=== PATIENT | female | born 1955 | race Caucasian/White ===

== ENCOUNTER 2019-03-13 13:58 | Outpatient (REF) | payer OTHER, SELFPAY ==
[2019-03-13 14:42] LABS: Abs Immature Grans 0.01 k/cumm (0.0-0.09); Absolute Basophil Count 0.03 k/cumm (0.0-0.2); Absolute Eosinophil Count 0.14 k/cumm (0.0-0.7); Absolute Neutrophil Count 3.64 k/cumm (1.2-6.7); Basophils % 0.4; Eosinophils % 2.1; HCT 39.2 % (36.0-46.0); HGB 12.8 g/dL (12.0-15.5); Immature Grans % 0.1 %; Lymphocytes % 35.2; Mean Corp. HGB Concentration 32.7 g/dL (32.0-36.0); Mean Corpuscular Hemoglobin 30.9 pg (27.0-33.0); Mean Corpuscular Volume 94.7 fL (80-95); Mean Platelet Volume 10.4 fL (8.0-11.0); Monocytes % 8.8; Neutrophils % 53.4; Platelet Count 301 x1000/uL (130-400); RBC 4.14 m/cumm (4.00-5.20); RBC Distribution Width 13.8 % (11.7-14.6); White Blood Cell Count 6.82 k/cumm (4.4-10.8)
[2019-03-13 14:50] LABS: ALT 29 U/L (14-59); AST 15 U/L (15-37); Albumin 3.7 g/dL (3.4-5.0); Alkaline Phosphatase 106 U/L (46-116); Anion Gap 12.2 mmol/L (3-11); BUN 19 mg/dL (7-18); Bilirubin, Total 0.2 mg/dL (0.2-1.0); CO2 23.8 mmol/L (21.0-32.0); CREATININE 0.71 mg/dL (0.55-1.02); Calcium 8.4 mg/dL (8.5-10.1); Calculated LDL 131 mg/dL (<100); Chloride 107 mmol/L (98-107); Cholesterol 199 mg/dL (<200); Glucose 95 mg/dL (74-106); HDL Cholesterol 52 mg/dL (40-60); Potassium 4.1 mmol/L (3.5-5.1); Sodium 143 mmol/L (136-145); TSH (W/Ref FT4) 1.93 uIU/mL (0.36-3.74); Total Protein 6.9 g/dL (6.4-8.2); Triglyceride 80 mg/dL (<150)
== END 2019-03-13 14:18 ==
LOC: NCHCN 13:58
PROVIDERS: PCP Nurse Practitioner Family; Visit Provider Nurse Practitioner Family
DX: E05.00 Thyrotoxicosis with diffuse goiter without thyrotoxic crisis or storm (principal); Z00.00 Encounter for general adult medical examination without abnormal findings
CPT/HCPCS: 80053; 80061; 84443; 85025

== ENCOUNTER 2019-03-30 09:46 | Inpatient (IN) | payer OTHER, SELFPAY ==
[2019-03-30] VITALS (64 sets, daily range): BP systolic 57–128; BP diastolic 37–83; PULSE 54–100; RESP 5–26; TEMP 36.6–38.4; O2SAT 87–99
--- NOTE | 2019-03-30 10:30 | DI.CT_ITS ---
EXAM: CT ABDOMEN PELVIS WO CLINICAL HISTORY: right abdominal pain, r/o appey TECHNIQUE: COMPARISON: No exams were available for comparison FINDINGS: CT examination of the abdomen and pelvis was performed without contrast administration. Images obtai ariana through the lung bases are unremarkable. There is a fat containing umbilical hernia. No other s ignificant abdominal wall hernia seen. No abdominal or pelvic adenopathy seen. Liver, spleen, and pancreas are grossly unremarkable by noncontrast criteria. No biliary dilatation seen. Abdominal aorta is of normal diameter. Adrenals and kidneys are unremarkable, no evidence of urinary tract obstruction or calcification. Landscaping Supervisor structures unremarkable as visualized. There is marked fat stranding in the right lower quadrant surrounding a dilated thick-walled appendix containing multiple apparent appendicoliths. Findings are highly suggestive of acute appendicitis. No gross free intraperitoneal air. Small quantity of free fluid, nonspecific, no gross abscess by n oncontrast criteria. IMPRESSION: Acute appendicitis. No direct evidence of appendiceal perforation but micro perforation not excluded .
[2019-03-30] MEDS: Normal Saline 1,000 ML 1000 ML IV (10:45)
[2019-03-30] MEDS: Ondansetron 4 MG/2 ML VIAL IVP (10:51)
[2019-03-30 10:59] LABS: Abs Immature Grans 0.07 k/cumm (0.0-0.09); Absolute Lymphocyte Count 1.43 k/cumm (1.2-3.4); Absolute Monocyte Count 1.38 k/cumm (0.11-0.7); HCT 39.8 % (36.0-46.0); HGB 13.6 g/dL (12.0-15.5); Immature Grans % 0.3 %; Lymphocytes % 6.9; Mean Corp. HGB Concentration 34.2 g/dL (32.0-36.0); Mean Corpuscular Hemoglobin 31.9 pg (27.0-33.0); Mean Corpuscular Volume 93.4 fL (80-95); Mean Platelet Volume 9.5 fL (8.0-11.0); Monocytes % 6.7; Neutrophils % 86.1; Platelet Count 313 x1000/uL (130-400); RBC 4.26 m/cumm (4.00-5.20); RBC Distribution Width 13.6 % (11.7-14.6); White Blood Cell Count 20.66 k/cumm (4.4-10.8)
[2019-03-30 11:00] LABS: Bilirubin Negative (Negative); Blood Trace-intact (Negative); Clarity Clear (Clear); Glucose Negative (Negative); Ketones Negative (Negative); Leukocyte Esterase Trace (Negative); Nitrite Negative (Negative); Urobilinogen 0.2 EU/dL (Up TO 0.2); pH 6.5 (5-8)
[2019-03-30 11:00] LABS: Absolute Neutrophil Count 17.79 k/cumm (1.2-6.7)
[2019-03-30 11:12] LABS: ALT 21 U/L (14-59); AST 14 U/L (15-37); Albumin 3.7 g/dL (3.4-5.0); Alkaline Phosphatase 117 U/L (46-116); Anion Gap 8.4 mmol/L (3-11); BUN 8 mg/dL (7-18); Bilirubin, Total 0.5 mg/dL (0.2-1.0); CO2 26.6 mmol/L (21.0-32.0); CREATININE 0.85 mg/dL (0.55-1.02); Chloride 101 mmol/L (98-107); Glucose 140 mg/dL (74-106); Lipase 110 U/L (73-393); Potassium 3.5 mmol/L (3.5-5.1); Sodium 136 mmol/L (136-145); Total Protein 7.9 g/dL (6.4-8.2)
[2019-03-30 11:21] LABS: Bacteria Few HPF (Negative); Epithelial Cells Few HPF (Negative)
[2019-03-30 11:22] LABS: C & S Indicated? C&S Done As Ordered; Casts Negative LPF (Negative); Crystals Negative HPF (Negative); Mucus Trace (Negative)
--- NOTE | 2019-03-30 12:11 | DI.VRAD_ITS ---
PROCEDURE INFORMATION: Exam: CT Abdomen And Pelvis Without Contrast Exam date and time: 03/30/2019 11:40 AM Age: 64 years old Clinical indication: Abdominal tenderness and nausea and other: Right abdominal pain, R/O appey; Patient HX: Right abdominal pain, R/O appey x 1days with nausia. PT is severe allergic to iodide dye TECHNIQUE: Imaging protocol: Computed tomography of the abdomen and pelvis without contrast. Radiation optimization: All CT scans at this facility use at least one of these dose optimization techniques: automated exposure control; mA and/or kV adjustment per patient size (includes targeted exams where dose is matched to clinical indication); or iterative reconstruction. COMPARISON: None available at the time of dictation FINDINGS: Liver: No focal liver lesions seen on this noncontrast CT Gallbladder and bile ducts: The gallbladder is not definitely identified. Minimal dilation of the extra hepatic biliary duct up to 8 mm could be post cholecystectomy related. Pancreas: Slight fatty infiltration Spleen: Normal appearance of the spleen Adrenals: Normal appearance of the adrenals. Kidneys and ureters: No renal stone or hydronephrosis identified. Stomach and bowel: Minimal diverticulosis of the distal colon Appendix: The abnormal tubular structure in the right lower quadrant most likely represents the appendix which is abnormally thickened containing radiodense material probably representing appendicoliths. It measures abnormal 2 cm in thickness with marked surrounding fat stranding indicating severe acute appendicitis. No drainable fluid collection is identified. Intraperitoneal space: Marked stranding is noted above with no free air in the peritoneal cavity Vasculature: Limited evaluation with no IV contrast. No aneurism seen. Lymph nodes: Limited evaluation with no IV contrast. Bladder: Unremarkable appearance of the bladder. Reproductive: Unremarkable as visualized. Bones/joints: Unremarkable. No acute fracture. Soft tissues: Unremarkable. Other findings: Hypoventilatory changes. IMPRESSION: Findings suggesting acute appendicitis with severe adjacent fat stranding. The appendix is most probably not ruptured yet but microperforation is possible. No drainable fluid collection is seen at this time. THIS REPORT CONTAINS FINDINGS THAT MAY BE CRITICAL TO PATIENT CARE. The findings were verbally communicated via telephone conference with Ivet Crandall at 12:11 PM EST on 03/30/2019. The findings were acknowledged and understood. Dictated and Authenticated by: Scotty Garcia MD. Ordering:JANET Cooney MD
[2019-03-30] MEDS: PIPERACILLIN/TAZO 3.375 GM in Normal Saline 50 ML IVPB (12:41)
[2019-03-30] MEDS: Lactated Ringers 1,000 ML 150 ML IV ×3 (13:13→20:43)
[2019-03-30] MEDS: ACETAMINOPHEN 1,000 MG/100 ML BTL 400 MG IVPB ×2 (13:14→22:03)
--- NOTE | 2019-03-30 13:22 | W.PM.HP.N ---
Date of service: 03/30/19 Time of Service: 13:22 Assessment and Plan Assessment and plan (1) Acute appendicitis: Status: Acute Assessment and plan: Informed consent is obtained for the procedural (explained in simple layman's terms that the pt and/or family could understand) explaining risks vs benefits and alternatives to the procedure and consequences if we do not do the procedure. Risks include but are not limited to:bleeding,infections, pneumonia, blood clots/DVT/PE, anesthesia(aspiration, damage to teeth/airway/[place]/CVA//prolonged mechanical ventilation/PTX/IV infections), damage to bowel, bladder,blood vessels, ureters, bile ducts. Damage to solid organs requiring removal. Infertility. Leakage from anastomosis requiring colostomy/ Wound infections requirng further surgery. Loss of function of limb/ext. (motor or sensory) . Scarring and disfigurement. Subsequent bowel obstructions from scar tissue. Possible open procedure if minimaly invsive procedure is being attempted. Patient understands that this may be a washout and drain placement only. That she may need to come in for an interval appendectomy. If there is any sign of stool leakage then we will need to do a bowel procedure an open procedure. This may leave her with chronic diarrhea. We will also plan on keeping her in the ICU. We will have hospitalist consult for medical management. The recommendations to follow based on findings at the time of surgery. Patient did receive IV antibiotics in the ED. History of Present Illness Consults Consult date: 03/30/19 Narrative: Patient presents to the emergency department complaining of 24 hours of right-sided abdominal pain and severe nausea. She has a history of IBS and she is not exactly sure when her his symptoms started. She believes it was just that Sunday. Her bowels are always irregular. She has been very nauseated not able to eat. She is not vomiting. She is not having any fever chills at home. She is spiking a temp now in the emergency department. She always has abdominal pain and bloating. She does have a family history of colorectal cancer. She does get her colonoscopies regularly. Her last one was 2 years ago at [place]. She did have polyps removed. She has had no rectal bleeding. She has had no dysuria. She has had no chest pain or shortness of breath. She has had no upper respiratory tract signs and symptoms. She does have a history of allergies to IV contrast. The CAT scan was done without IV or oral contrast. It does show an acute inflammatory mass in the right lower quadrant. There does not appear to be any fluid collections around the appendix or in the pelvis. Is highly suspect for rupture. She recently had a knee scope about 4 to 6 weeks ago. She had no problems with anesthesia. She denies any history of heart attack or stroke. She is not on any blood thinners. She is not diabetic. Because a stent inflammatory reaction 20,000 white count, and the poor CT, there is a high probability of this being a ruptured's. At this point if he cannot get her appendix out laparoscopically, I would recommend doing a drain and IV antibiotics only. I did discuss with her that if there is continued leaking stool then we would be forced to do a hemicolectomy. This could leave her with chronic longstanding back problems with diarrhea. If there is no stool leakage, then we would just place draining continue with IV antibiotic therapy. And then bring her back in 6 to 12 weeks for interval appendectomy. There is much less morbidity and mortality associated with a stepwise. Risks today include but are not limited to: Bleeding, infection, pneumonia, blood clots,. Complications of surgery include but not limited to damage to bowels, bladder, blood vessels. Complications of anesthesia including not limited to [place] CVA and stroke. Again she would require a second surgery. She is a good surgical candidate. She has had an open cholecystectomy in the past this may complicate her surgery as well. We will plan on keeping her in the ICU postop. Review of Systems All systems reviewed & are unremarkable except as noted in HPI and below [facility] Medical History Arthritis BMI 36.0-36.9,adult Chest pain pt had NEG holter monitor. Was given nitro by former PCP. Graves disease stable. 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 Hypertension Surgical History (Updated 11/21/17 @ 14:33 by about.me [place]) Arthroplasty of knee 1993 L knee. Cholecystectomy 1987 - open procedure Colonoscopy - [facility] Family History Mother , [place] Myocardial infarction Father , colon [place] Personal history of malignant neoplasm Social History Smoking/Tobacco Use Status: Former Tobacco Use Alcohol Intake: current Alcohol Intake frequency: holidays/special occasions only Drug use: Never Do you feel safe at home: Yes Meds Home Medications and Allergies Home Medications Medication Instructions Recorded Confirmed Type methimazole 5 mg PO DAILY tab-cap 03/30/15 03/30/19 History metoprolol succinate 50 mg PO BID 03/30/15 03/30/19 History Bio Immunizine Forte 1 tab DAILY 10/06/16 History ascorbic yovv-[id number]-vre 1,000 mg PO PRN 10/06/16 03/30/19 History [Emergen-C 1,000 Mg Packet] bisacodyl [Bisa-Lax] 5 mg PO as directed #4 tab 10/06/16 03/30/19 History echinacea purpurea extract 125 mg PO TID 10/06/16 History multivitamin [Multi-Vitamin Daily] 1 ea PO DAILY 10/06/16 03/30/19 History olive leaf extract 250 mg PO BID 10/06/16 History polyethylene glycol 3350 255 gm PO as directed for colo 10/06/16 03/30/19 History #255 gm simethicone 40 mg PO as directed for colo #1 10/06/16 History bottle spironolactone 25 mg PO DAILY 10/06/16 03/30/19 History Allergies Allergy/AdvReac Type Severity Reaction Status Date / Time dye Allergy breathing Uncoded 03/30/19 09:55 issues Exam Const General: cooperative, healthy appearing, comfortable, no acute distress, well developed and well groomed Nutritional Appearance: average body habitus and well nourished Orientation: alert, awake and oriented x3 HENMT Head: normal to inspection, normocephalic and atraumatic Ears: hearing grossly normal bilaterally and external ears normal General nose exam: external nose normal Face and sinus: normal facial exam and sinuses nontender Mouth: oral mucosae normal, lip normal, tongue normal and moist mucous membranes Teeth and gingiva: dentition normal Eyes General: appearance normal, both eyes and all related structures Conjunctivae: conjunctivae normal Sclera: sclerae normal Pupils: PERRL Neck Neck: normal visual inspection and full ROM Chest Chest: normal inspection of the chest Resp Effort & Inspection: normal respiratory effort, able to speak in complete sentences, no cough, no nasal flaring, not tachypneic and no use of accessory muscles Auscultation: clear to auscultation bilaterally, no rales, no rhonchi and no wheezes Cardio Jugular venous pressure: no JVD Rate: regular rate Rhythm: regular rhythm GI Inspection: no edema, distended, incision, obesity, scar and striae Palpation: soft, hernia umbilical, no masses, tender (Peritonitis in the right lower quadrant. Pain radiates into her low back. ) in the RLQ and No ascites Auscultation: normal bowel sounds Other: No diffuse peritonitis Skin General skin exam: no rashes or lesions noted Trauma: no lacerations or abrasions Neuro General: alert, oriented x3, oriented, gait normal, moves all extremities, no focal motor deficits and CN's II-XI intact bilaterally Cognition: normal cognition Speech: speech normal Gait: normal gait Motor: muscle tone normal throughout Extrem General: normal to inspection, full ROM and no clubbing, cyanosis or edema Psych Appearance: grossly normal and well kempt Mental Status: mental status grossly normal Speech and Movement: speech and movement normal Affect: normal affect Results Labs Result diagrams: 03/30/19 10:52 03/30/19 10:52 Labs: Laboratory Results - last 24 hr 03/30/19 03/30/19 03/30/19 10:40 10:52 10:52 WBC 20.66 H RBC 4.26 Hgb 13.6 Hct 39.8 MCV 93.4 MCH 31.9 MCHC 34.2 RDW 13.6 Plt Count 313 MPV 9.5 Immature Gran % 0.3 Neutrophils % 86.1 Lymphocytes % 6.9 Monocytes % 6.7 Eosinophils % 0.0 Basophils % 0.0 Absolute Neutrophils 17.79 H Absolute Lymphocytes 1.43 Absolute Monocytes 1.38 H Absolute Eosinophils 0.00 Absolute Basophils 0.00 PT INR APTT Sodium 136 Potassium 3.5 Chloride 101 Carbon Dioxide 26.6 Anion Gap 8.4 BUN 8 Creatinine 0.85 Estimated GFR/1.73 m2 >= 60.00 Glucose 140 H Calcium 9.0 Total Bilirubin 0.5 AST 14 L ALT 21 Alkaline Phosphatase 117 H Total Protein 7.9 Albumin 3.7 Lipase 110 Urine Color Yellow Urine Clarity Clear Urine pH 6.5 Ur Specific [place] 1.020 Urine Protein Negative Urine Ketones Negative Urine Blood Trace-intact H Urine Nitrite Negative Urine Bilirubin Negative Urine Urobilinogen 0.2 Ur Leukocyte Esterase Trace H Urine RBC 3-5 H Urine WBC 10-20 H Ur Epithelial Cells Few Urine Crystals Negative Urine Bacteria Few Urine Casts Negative Urine Mucus Trace Ur Culture Indicated? C&s done as ordered Urine Glucose Negative 03/30/19 10:52 WBC RBC Hgb Hct MCV MCH MCHC RDW Plt Count MPV Immature Gran % Neutrophils % Lymphocytes % Monocytes % Eosinophils % Basophils % Absolute Neutrophils Absolute Lymphocytes Absolute Monocytes Absolute Eosinophils Absolute Basophils PT 10.0 INR 1.0 APTT 29.0 Sodium Potassium Chloride Carbon Dioxide Anion Gap BUN Creatinine Estimated GFR/1.73 m2 Glucose Calcium Total Bilirubin AST ALT Alkaline Phosphatase Total Protein Albumin Lipase Urine Color Urine Clarity Urine pH Ur Specific [place] Urine Protein Urine Ketones Urine Blood Urine Nitrite Urine Bilirubin Urine Urobilinogen Ur Leukocyte Esterase Urine RBC Urine WBC Ur Epithelial Cells Urine Crystals Urine Bacteria Urine Casts Urine Mucus Ur Culture Indicated? Urine Glucose Last Vital Signs Temp 38.1 C H 03/30/19 12:45 Pulse 98 H 03/30/19 12:45 Resp 16 03/30/19 12:45 BP 128/62 03/30/19 12:45 Pulse Ox 96 03/30/19 12:45
[2019-03-30 13:44] LABS: C-Reactive Protein 7.35 mg/dL (0.0-0.3)
--- NOTE | 2019-03-30 14:45 | APP_PTH ---
PATIENT: Tameka Llyes LOC: [id number]#:[id number] AGE/SX: 64/F ROOM: [id number] RE03/30/[address]: Mansi Beltre : 1955 BED: A DIS: 04/04/2019 SPEC #: [id number] RECD: 03/31/19 12:27 STATUS: DYLON REQ #: [id number] MOE: 03/30/19 14:[address]: Mansi Beltre DEPT: Surgical Specimen RECD BY: Joi Carpenter ENTERED: 03/31/19 12:29 SP TYPE: Appendix OTHR DR: Wilma Spears Tissues: 1 - APPENDIX NOT INCIDENTAL Procedures: GROSS AND MICRO LEVEL 3 Comments: [id number]
[2019-03-30] MEDS: Bupivacaine 0.25% Pres-Free 30 ML VIAL (15:24)
--- NOTE | 2019-03-30 15:28 | W.MEDCONSULT ---
Date of service: 03/30/19 Time of Service: 15:28 Assessment and Plan Assessment and plan (1) Acute appendicitis: Status: Acute Assessment and plan: Likely in the OR as this note is being written. Defer to surgical service. Will defer to surgical team. (2) Sepsis: Status: Acute Assessment and plan: due to above. Blood cultures are pending. Agree with empiric zosyn and IVF. Surgical tx as above (3) Graves disease: Status: Chronic Assessment and plan: Normally on methimazole. Should be resumed as soon as patient is able to tolerate PO. Hyperthyroidism would recur at the earliest in 10 days. (4) Hypertension: Status: Chronic Assessment and plan: Hold aldactone while requiring IVF. (5) BMI 36.0-36.9,adult: Status: Chronic Assessment and plan: Would benefit from a sleep study as outpatient (6) DVT prophylaxis: Status: Acute Assessment and plan: Defer to primary team History of Present Illness History of Present Illness Chief Complaint: abdominal pain Narrative: Ms Lyles is a 64 year old female with PMHx of Graves disease on methimazole, as well as hypertension, IBS, OA, Periprosthetic L knee infection, s/p completion of antibiotics, and obesity with BMI of 38.4, who is being admitted to Dr Beltre's surgical service for acute appendicitis with suspicion for rupture and peritonitis. The patient is expected to undergo an laporoscopic washout +/- appendectomy vs drain placement vs partial resection of the intestine, depending on the findings of laparoscopy. The patient is expected to go to the ICU postoperatively. Hospitalists were asked to follow along to help manage the patient's sepsis as well as the remainder of her medical conditions. The patient reports first feeling sick after lunch yesterday, with generalized abdominal cramps and bloating and nausea by the evening and severe RLQ pain by this morning. She also felt firmness in her abdomen inferior to the umbilicus this morning. She denies dizziness, fever/chills at home (febrile in the ED), sore throat or cough. She has a chronic runny nose. Consults Consult date: 03/30/19 Requesting physician: Mansi Beltre Review of Systems Narrative: 12 systems reviewed. Pertinent positives and negatives are as per HPI. Additionally, the patient endorses snoring which has been relatively recent as well as weight gain. [facility] Medical History (Updated 03/30/19 @ 16:02 by Anita Zelaya MD) Arthritis BMI 36.0-36.9,adult (Chronic) Chest pain pt had NEG holter monitor. Was given nitro by former PCP. Graves disease (Chronic) stable. 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 Hypertension (Chronic) Infection associated with internal left knee prosthesis (Acute) Treated at [facility] Surgical History (Updated 11/21/17 @ 14:33 by [employer] [place]) Arthroplasty of knee 1993 L knee. Cholecystectomy 1987 - open procedure Colonoscopy - [facility] Family History Mother , [place] Myocardial infarction Father , colon [place] Personal history of malignant neoplasm Social History Smoking/Tobacco Use Status: Former Tobacco Use Alcohol Intake: current Alcohol Intake frequency: holidays/special occasions only Drug use: Never Do you feel safe at home: Yes Exam Narrative Exam Narrative: General: Pleasant obese female who is febrile to touch, A&Ox3, does not appear as ill as her numbers Neurological: A&Ox3, no focal deficits Psychiatric: Appropriate speech pattern/content Skin: visible skin intact HEENT: Atraumatic, normocephalic, EOMI, dry MM, clear oropharynx, no submandibular or cervical lymphadenopathy, small goiter, no JVD Cardiovascular: RRR, no m/r/g, mildly tachycardic Lungs: CTAB Gastrointestinal: abdomen soft, patient jumps and screams out when I palpate in RLQ; induration inferior to the umbilicus, otherwise soft and nontender, + BS Genitourinary: deferred Extremities: trace edema BLE's, no c/c. Results Last Vital Signs Temp 38.4 C H 03/30/19 13:43 Pulse 94 H 03/30/19 13:43 Resp 18 03/30/19 13:43 BP 112/54 L 03/30/19 13:43 Pulse Ox 96 03/30/19 13:43 Labs Result diagrams: 03/30/19 10:52 03/30/19 10:52 Labs: Laboratory Results - last 24 hr 03/30/19 03/30/19 03/30/19 10:40 10:52 10:52 WBC 20.66 H RBC 4.26 Hgb 13.6 Hct 39.8 MCV 93.4 MCH 31.9 MCHC 34.2 RDW 13.6 Plt Count 313 MPV 9.5 Immature Gran % 0.3 Neutrophils % 86.1 Lymphocytes % 6.9 Monocytes % 6.7 Eosinophils % 0.0 Basophils % 0.0 Absolute Neutrophils 17.79 H Absolute Lymphocytes 1.43 Absolute Monocytes 1.38 H Absolute Eosinophils 0.00 Absolute Basophils 0.00 PT INR APTT Sodium 136 Potassium 3.5 Chloride 101 Carbon Dioxide 26.6 Anion Gap 8.4 BUN 8 Creatinine 0.85 Estimated GFR/1.73 m2 >= 60.00 Glucose 140 H Lactate Calcium 9.0 Total Bilirubin 0.5 AST 14 L ALT 21 Alkaline Phosphatase 117 H C-Reactive Protein 7.35 H Total Protein 7.9 Albumin 3.7 Lipase 110 Urine Color Yellow Urine Clarity Clear Urine pH 6.5 Ur Specific [place] 1.020 Urine Protein Negative Urine Ketones Negative Urine Blood Trace-intact H Urine Nitrite Negative Urine Bilirubin Negative Urine Urobilinogen 0.2 Ur Leukocyte Esterase Trace H Urine RBC 3-5 H Urine WBC 10-20 H Ur Epithelial Cells Few Urine Crystals Negative Urine Bacteria Few Urine Casts Negative Urine Mucus Trace Ur Culture Indicated? C&s done as ordered Urine Glucose Negative Patient ABO/Rh Antibody Screen 03/30/19 03/30/19 03/30/19 10:52 12:20 13:25 WBC RBC Hgb Hct MCV MCH MCHC RDW Plt Count MPV Immature Gran % Neutrophils % Lymphocytes % Monocytes % Eosinophils % Basophils % Absolute Neutrophils Absolute Lymphocytes Absolute Monocytes Absolute Eosinophils Absolute Basophils PT 10.0 INR 1.0 APTT 29.0 Sodium Potassium Chloride Carbon Dioxide Anion Gap BUN Creatinine Estimated GFR/1.73 m2 Glucose Lactate 1.0 Calcium Total Bilirubin AST ALT Alkaline Phosphatase C-Reactive Protein Total Protein Albumin Lipase Urine Color Urine Clarity Urine pH Ur Specific [place] Urine Protein Urine Ketones Urine Blood Urine Nitrite Urine Bilirubin Urine Urobilinogen Ur Leukocyte Esterase Urine RBC Urine WBC Ur Epithelial Cells Urine Crystals Urine Bacteria Urine Casts Urine Mucus Ur Culture Indicated? Urine Glucose Patient ABO/Rh O Positive Antibody Screen Negative CT abdomen/pelvis: Acute appendicitis. No direct evidence of appendiceal perforation but micro perforation not excluded.
--- NOTE | 2019-03-30 15:56 | ROE_ITS ---
Operative Note Operative Note DATE OF PROCEDURE: 03/30/19 PRE-OP DIAGNOSIS: ruptured appendix 20 POST-OP DIAGNOSIS: same PROCEDURE: hayder figueredo SURGEON: Mckenzie eHnriquez FAN BALANCER: Augustus Alvarado ANESTHESIA: GETA ESTIMATED BLOOD LOSS: 20 PATHOLOGY: other COMPLICATIONS: None Patient was transported to: ICU Patient's condition: stable Implants: 1500cc crystalloid. no pressors Procedure Description: COMPLICATIONS: The patient tolerated the procedure well without complications. INDICATIONS: The patient has signs and symptoms compatible with acute appendici tis and is brought to the OR for laparoscopic appendectomy, possible open procedure. Informed consent is obtained for the procedural (explained in simple layman's terms that the pt and/or family could understand) explaining risks vs benefits and alternatives to the procedure and consequences if we do not do the procedure. Risks include but are not limited to:bleeding,infections, pneumonia, blood c lots/DVT/PE, anesthesia(aspiration, damage to teeth/airway/VA/CVA//prolonged mechanical ventilation/PTX/IV infections), damage to bowel, bladder,blood vessels, ureters. Damage to solid organs req uiring removal. Infertility. Leakage from anastomosis requiring colostomy. Wound infections requirng further surgery. Scarring and disfigurement. Subsequent bowel obstructions from scar tissue. Possible open procedure if minimaly invsive procedure is being attempted. Abscess and stump appendicitis as well as others. Patient understands that she has pretty severe appendicitis. She may require open procedure if we are unable to find adequate tissue to send to. She could require a right hemicolectomy. We may not be able to identify the appendix landmarks today, and maybe only place a drain and irrigate with antibiotics and she will need interval appendectomy. DESCRIPTION OF PROCEDURE: The patient was brought to the operating room suite and placed in supine position. Anesthesia was administered per the Department of Anesthesia. A Elizondo catheter and OG tube are placed. The patient was prepped and draped in the usual sterile fashion using ChloraPrep scrub solution. Pause for the cause was done. 30 mL of 1% buffered was used for local anesthetization. A stab incision was made in the umbilicus and the Veress was inserted. Drop test was positive and insufflation was begun. When 15 mm of pressure was noted on the monitor, the Veress was removed, a #5 port inserted. Camera inserted through the port shows no damage to underlying structures. Bowel, liver and stomach that are visualized are normal in appearance. Pelvic organs are not visualized. A 12 mm port was then placed in the suprapubic position under direct visualization following creation of a local field block as well as a second 5 mm port in the LLQ. The appendix is retrocecal. the white line of Toldt was opened up. The omentum was adhered up to the appendix. This is teased down w/ blunt dissection. The appendix is necrotic. She has significant adhesion to the anterior abdominal wall from her previous open gallbladder. Some of these adhesions are taken down to facilitate procedure. the appendix is necrotic and the intimately adhered to posterior mesentery of the bowel. I am able to dissect the appendix out but it has ruptured. There is really no abscess there is just some seropurulent fluid. I am able to find adequate tissue for the stapler and the stapler is used to divide the appendix from the cecum was placed in the bag and brought out. There is a concern about the adequacy of the tissue and did attempt to dissect out some of the appendiceal mesentery was given to small pieces of necrotic tissue dissected out this was removed. When I have to do this we do get into some significant bleeding, that is just from INFLAMMED/infected mesentery. I cannot cannot identify the artery. This procedure is abandoned at this point. The abdomen was irrigated with 3 L of saline. All that was removed. Small bowel was run. There is no fluid within the mesentery loops. There is a fecalith that is identified and removed from the abdomen. A 15 mm round KVNG is placed in through number five-poRT in the LLQ and left in the right gutter. a Vicryl suture is placed around appendiceal stump, proximal to the staple line/ around the base of the appendix on the cecum as well to ensure no leaks. The fascia under the 12 mm port is closed with 0 Vicryl. There was no bleeding from the port sites as when they removed and the pneumoperitoneum evacuated. The wounds were copiously irrigated and closed in 2 layers with 4-0 Monocryl. Sterile tape and sterile dressings are applied. The patient tolerated the procedure without complication, transferred to the recovery room in stable condition. Family was apprised of patient condition. The patient will be admitted overnight to the ICU for monitoring. The hospitalist is consulted well. MCKENZIE HENRIQUEZ, Cc: _
--- NOTE | 2019-03-30 16:40 | PGE_ITS ---
Date of Service Date of service: 03/30/19 Time of Service: 16:40 Assessment and Plan Assessment and plan (1) Acute appendicitis: Status: Acute (2) Sepsis: Status: Acute (3) Acute perforated appendicitis: Status: Acute Assessment and plan: s/p lap appy for perforated appendix. I was able to get the appendix out and close the incision at the base of the appendix. Will keep pt in ICU for obssertvation and close following of VS and urine outpt. pt has high risk of pneumonia and postOp ileus. cont supportive care dong well Subjective Subjective Interval history since last seen: awake and alert. d/w finding in OR denies pain denies sore throat and eye pain no cp or SOB Exam Chest Chest: normal inspection of the chest Resp Effort & Inspection: normal respiratory effort and able to speak in complete sentences Auscultation: clear to auscultation bilaterally Cardio Rate: regular rate Rhythm: regular rhythm GI Inspection: normal to inspection Other: incisions c/d/i. decreased BS. KVNG- high outpt, but this is left over irrigation fluids. Skin Other: intact Extrem General: normal to inspection, full ROM and no clubbing, cyanosis or edema Objective Objective Clinical Data: Abnormal lab results 03/30/19 03/30/19 03/30/19 Range/Units 10:40 10:52 10:52 WBC 20.66 H (4.4-10.8) k/cumm Absolute Neutrophils 17.79 H (1.2-6.7) k/cumm Absolute Monocytes 1.38 H (0.11-0.7) k/cumm Glucose 140 H (74-106) mg/dL AST 14 L (15-37) U/L Alkaline Phosphatase 117 H (46-116) U/L C-Reactive Protein 7.35 H (0.0-0.3) mg/dL Urine Blood Trace-intact H (Negative) Ur Leukocyte Esterase Trace H (Negative) Urine RBC 3-5 H (0-2) HPF Urine WBC 10-20 H (0-5) HPF Vital Signs Temperature 38.4 C H 03/30/19 13:43 Temperature Source Temporal Artery Scan 03/30/19 13:23 Pulse 94 H 03/30/19 13:43 Respiratory Rate 18 03/30/19 13:43 Respiratory Effort 03/30/19 09:53 Blood Pressure 112/54 L 03/30/19 13:43 Blood Pressure Position Sitting 03/30/19 09:49 Pulse Oximetry 96 03/30/19 13:43 Oxygen Delivery Method Room Air 03/30/19 13:23 Oxygen Flow Rate 0 03/30/19 13:23 Pain Level 8 03/30/19 13:43 Intake & Output 03/29/19 03/30/19 03/30/19 23:59 11:59 23:59 Intake Total 1000 / 2650 1650 / 2650 Output Total 320 / 320 Balance 1000 / 2330 1330 / 2330 Weight 107.955 kg Intake: IV 1000 / 2650 1650 / 2650 Output: Urine 300 / 300 Estimated Blood Loss Other: Urine Color Yellow Urine Appearance Clear Laboratory Results WBC 20.66 k/cumm (4.4-10.8) H 03/30/19 10:52 RBC 4.26 m/cumm (4.00-5.20) 03/30/19 10:52 Hgb 13.6 g/dL (12.0-15.5) 03/30/19 10:52 Hct 39.8 % (36.0-46.0) 03/30/19 10:52 MCV 93.4 fL (80-95) 03/30/19 10:52 MCH 31.9 pg (27.0-33.0) 03/30/19 10:52 MCHC 34.2 g/dL (32.0-36.0) 03/30/19 10:52 RDW 13.6 % (11.7-14.6) 03/30/19 10:52 Plt Count 313 x1000/uL (130-400) 03/30/19 10:52 MPV 9.5 fL (8.0-11.0) 03/30/19 10:52 Immature Gran % 0.3 % 03/30/19 10:52 Neutrophils % 86.1 03/30/19 10:52 Lymphocytes % 6.9 03/30/19 10:52 Monocytes % 6.7 03/30/19 10:52 Eosinophils % 0.0 03/30/19 10:52 Basophils % 0.0 03/30/19 10:52 Absolute Neutrophils 17.79 k/cumm (1.2-6.7) H 03/30/19 10:52 Absolute Lymphocytes 1.43 k/cumm (1.2-3.4) 03/30/19 10:52 Absolute Monocytes 1.38 k/cumm (0.11-0.7) H 03/30/19 10:52 Absolute Eosinophils 0.00 k/cumm (0.0-0.7) 03/30/19 10:52 Absolute Basophils 0.00 k/cumm (0.0-0.2) 03/30/19 10:52 PT 10.0 sec (9.3-11.0) 03/30/19 10:52 INR 1.0 (0.9-1.1) 03/30/19 10:52 APTT 29.0 sec (21.0-31.4) 03/30/19 10:52 Sodium 136 mmol/L (136-145) 03/30/19 10:52 Potassium 3.5 mmol/L (3.5-5.1) 03/30/19 10:52 Chloride 101 mmol/L (98-107) 03/30/19 10:52 Carbon Dioxide 26.6 mmol/L (21.0-32.0) 03/30/19 10:52 Anion Gap 8.4 mmol/L (3-11) 03/30/19 10:52 BUN 8 mg/dL (7-18) 03/30/19 10:52 Creatinine 0.85 mg/dL (0.55-1.02) 03/30/19 10:52 Estimated GFR/1.73 m2 >= 60.00 (mL/min/1.73m2) 03/30/19 10:52 Glucose 140 mg/dL (74-106) H 03/30/19 10:52 Lactate 1.0 mmol/L (0.6-1.4) 03/30/19 13:25 Calcium 9.0 mg/dL (8.5-10.1) 03/30/19 10:52 Total Bilirubin 0.5 mg/dL (0.2-1.0) 03/30/19 10:52 AST 14 U/L (15-37) L 03/30/19 10:52 ALT 21 U/L (14-59) 03/30/19 10:52 Alkaline Phosphatase 117 U/L (46-116) H 03/30/19 10:52 C-Reactive Protein 7.35 mg/dL (0.0-0.3) H 03/30/19 10:52 Total Protein 7.9 g/dL (6.4-8.2) 03/30/19 10:52 Albumin 3.7 g/dL (3.4-5.0) 03/30/19 10:52 Lipase 110 U/L (73-393) 03/30/19 10:52 Urine Color Yellow (Yellow) 03/30/19 10:40 Urine Clarity Clear (Clear) 03/30/19 10:40 Urine pH 6.5 (5-8) 03/30/19 10:40 Ur Specific [place] 1.020 (1.005-1.025) 03/30/19 10:40 Urine Protein Negative mg/dL (Negative) 03/30/19 10:40 Urine Ketones Negative mg/dL (Negative) 03/30/19 10:40 Urine Blood Trace-intact (Negative) H 03/30/19 10:40 Urine Nitrite Negative (Negative) 03/30/19 10:40 Urine Bilirubin Negative (Negative) 03/30/19 10:40 Urine Urobilinogen 0.2 EU/dL (Up TO 0.2) 03/30/19 10:40 Ur Leukocyte Esterase Trace (Negative) H 03/30/19 10:40 Urine RBC 3-5 HPF (0-2) H 03/30/19 10:40 Urine WBC 10-20 HPF (0-5) H 03/30/19 10:40 Ur Epithelial Cells Few HPF (Negative) 03/30/19 10:40 Urine Crystals Negative HPF (Negative) 03/30/19 10:40 Urine Bacteria Few HPF (Negative) 03/30/19 10:40 Urine Casts Negative LPF (Negative) 03/30/19 10:40 Urine Mucus Trace (Negative) 03/30/19 10:40 Ur Culture Indicated? C&s done as ordered 03/30/19 10:40 Urine Glucose Negative mg/dL (Negative) 03/30/19 10:40 Patient ABO/Rh O Positive 03/30/19 12:20 Antibody Screen Negative 03/30/19 12:20
--- NOTE | 2019-03-30 16:43 | W.ED.GENAD ---
Discharge Plan Disposition Patient Disposition: [facility] INPATIENT Condition: Stable Discharge Details Chief Complaint: Abd Prob Clinical Impression: Acute appendicitis Admit Date/Time: 03/30/19 15:43 Admit Provider: Mansi Beltre Attending Provider: Mansi Beltre Primary Care Provider: Wilma Spears ED Provider: Ivet Crandall Discharge Data Discharge Date/Time-TO BE ENTERED AT DEPARTURE: 03/30/19 21:00 Medical Decision Making Is a 64-year-old woman presenting to the emergency room for complaints of abdominal pain which began yesterday. Patient reports abdominal mental pain began in the periumbilical area and migrated toward the right lower quadrant. Patient presents with moderate right-sided abdominal tenderness on exam. Patient does report associated nausea which developed yesterday food aversion noted today. Patient did not take any significant p.o. intake today outside of her daily medications which she was able to hold down. Patient does report 3 episodes of loose stool but no watery diarrhea. Denies active vomiting. Denies measured fever but does report mild chills. Patient denies dysuria, urgency or frequency. She is specifically concerned with the possibility of appendicitis. Patient noted to have an IV dye allergy which causes anaphylaxis therefore will obtain labs, urinalysis IV access and provide fluids as well as nausea relief. Will CT scan without contrast due to patient's allergy. Patient agrees with plan of care. Patient's labs revealed a marked leukocytosis at this time. CT reveals acute appendicitis Per radiologist verbal report he feels perforation is unlikely at this time. Paged to Dr. Beltre. Discussed case. She will manage patient's appendicitis and evaluate patient in the emergency room. Zosyn IV provided, as well as Tylenol IV. Patient agrees with plan of care for admission and surgical management of her appendicitis. HPI General Date/Time Provider Initiated Documentation: 03/30/19 09:47. HPI Narrative: 64-year-old patient presents to the emergency room for complaints of right abdominal pain. Patient reports onset of abdominal pain noted yesterday. Patient reports severe pain in the lower abdomen which began in the periumbilical area and has since migrated to the right lower quadrant. Patient reports abdominal pain persists now associated with nausea without associated vomiting. Does report mild loose stools but no watery diarrhea. Patient reports chills noted today without measured fever. Patient denies significant headache, dizziness. Denies upper respiratory symptoms or cough. Patient denies dysuria, urgency or frequency. Patient is concerned with persistent abdominal pain. Denies any vaginal discharge or bleeding. No other concerns or complaints at this time. Denies any injury or trauma to the abdomen. Does report mild radiation of pain toward her back. Related Data Home Medications Medication Instructions Recorded Confirmed methimazole 5 mg PO DAILY tab-cap 03/30/15 03/30/19 ascorbic [id number]-[id number]-auf 1,000 mg PO PRN 10/06/16 03/30/19 [Emergen-C 1,000 Mg Packet] multivitamin [Multi-Vitamin Daily] 1 ea PO DAILY 10/06/16 03/30/19 spironolactone 25 mg PO DAILY 10/06/16 03/30/19 cholecalciferol (vitamin D3) 1,000 unit PO DAILY 03/30/19 03/30/19 [Vitamin D3] metoprolol tartrate [Lopressor] 50 mg PO BID 03/30/19 03/30/19 vitamin A-vitamin C-vitamin E 1 tab PO DAILY 03/30/19 03/30/19 vitamin B complex 1 cap PO DAILY 03/30/19 03/30/19 Allergies Allergy/AdvReac Type Severity Reaction Status Date / Time dye Allergy breathing Uncoded 03/30/19 13:47 issues General Stated Complaint: Abd Prob DUSTY: 3 Review of Systems All systems reviewed & are unremarkable except as noted in HPI and below Constitutional Constitutional: Reports chills, Denies fatigue, Denies fever(s), Reports headache(s) and Reports malaise ENT Ears, Nose, Mouth, and Throat: Denies otalgia, Reports headache(s), Denies nasal congestion, Denies sinus pain, Denies sinus pressure and Denies sore throat Cardiovascular Cardiovascular: Denies chest pain, Denies dyspnea and Denies dyspnea on exertion Respiratory Respiratory: Denies cough, Denies dyspnea and Denies dyspnea on exertion Gastrointestinal Gastrointestinal: Reports abdominal pain, Denies cramping, Reports diarrhea (loose stools x 3), Reports nausea and Denies vomiting Genitourinary Genitourinary: Denies hematuria, Denies dysuria, Denies flank pain and Denies urinary hesitancy Neurologic Neurologic: Reports headache(s) Endocrine Endocrine: Denies fatigue [facility]LY [facility] Medical History Arthritis BMI 36.0-36.9,adult (Chronic) Chest pain pt had NEG holter monitor. Was given nitro by former PCP. Graves disease (Chronic) stable. 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 Hypertension (Chronic) Infection associated with internal left knee prosthesis (Acute) Treated at [facility] Surgical History (Updated 11/21/17 @ 14:[address] [facility] [place]) Arthroplasty of knee 1993 L knee. Cholecystectomy 1987 - open procedure Colonoscopy - [facility] Family History Mother , [place] Myocardial infarction Father , colon [place] Personal history of malignant neoplasm Social History Smoking/Tobacco Use Status: Former Tobacco Use Alcohol Intake: current Alcohol Intake frequency: holidays/special occasions only Drug use: Never Do you feel safe at home: Yes Exam Narrative Exam Narrative: CONST: Healthy appearing patient, in no acute distress. Well hydrated. Alert and oriented. HENMT: Head nomocephalic, normal to inspection. Atraumatic. Hearing grossly normal. EYES: General normal appearance. Alignment normal. Eyelids normal. Conjunctiva normal. NECK: Normal visual inspection. FROM. Trachea midline. No Midline tenderness. CHEST: Normal insepection of the chest. RESP: Normal respiratory effort. Speaking full sentences. No cough. No audible wheezing. No retractions. CARDIO: No JVD. GI: Bowel sounds present all 4 quadrants. Abdomen is soft, moderate tenderness noted to the right side of the abdomen. Significant right lower quadrant tenderness with palpation. No obvious distention. Back: No CVA tenderness noted bilaterally SKIN: Normal. Dry. No rashes. Course Vital Signs Vital signs: Vital Signs Temperature 37.8 C H 03/30/19 09:49 Pulse 100 H 03/30/19 09:49 Respiratory Rate 20 03/30/19 09:49 Blood Pressure 124/83 03/30/19 09:49 Pulse Oximetry 99 03/30/19 09:49 Temperature 38.4 C H 03/30/19 13:43 Temperature Source Temporal Artery Scan 03/30/19 13:23 Pulse 94 H 03/30/19 13:43 Respiratory Rate 18 03/30/19 13:43 Respiratory Effort 03/30/19 09:53 Blood Pressure 112/54 L 03/30/19 13:43 Blood Pressure Position Sitting 03/30/19 09:49 Pulse Oximetry 96 03/30/19 13:43 Oxygen Delivery Method Room Air 03/30/19 13:23 Oxygen Flow Rate 0 03/30/19 13:23 Pain Level 8 03/30/19 13:43 Lab/Test Results Lab/Test Results: 03/30/19 13:25 Blood Blood Culture - Pending 03/30/19 12:55 Blood Blood Culture - Pending 03/30/19 10:40 Urine - Clean Catch Urine Culture - Pending Laboratory Tests Range/Units 03/30/19 03/30/19 03/30/19 10:40 10:52 10:52 WBC (4.4-10.8) k/cumm 20.66 H RBC (4.00-5.20) m/cumm 4.26 Hgb (12.0-15.5) g/dL 13.6 Hct (36.0-46.0) % 39.8 MCV (80-95) fL 93.4 MCH (27.0-33.0) pg 31.9 MCHC (32.0-36.0) g/dL 34.2 RDW (11.7-14.6) % 13.6 Plt Count (130-400) x1000/uL 313 MPV (8.0-11.0) fL 9.5 Immature Gran % % 0.3 Neutrophils % 86.1 Lymphocytes % 6.9 Monocytes % 6.7 Eosinophils % 0.0 Basophils % 0.0 Absolute Neutrophils (1.2-6.7) k/cumm 17.79 H Absolute Lymphocytes (1.2-3.4) k/cumm 1.43 Absolute Monocytes (0.11-0.7) k/cumm 1.38 H Absolute Eosinophils (0.0-0.7) k/cumm 0.00 Absolute Basophils (0.0-0.2) k/cumm 0.00 PT (9.3-11.0) sec INR (0.9-1.1) APTT (21.0-31.4) sec Sodium (136-145) mmol/L 136 Potassium (3.5-5.1) mmol/L 3.5 Chloride (98-107) mmol/L 101 Carbon Dioxide (21.0-32.0) mmol/L 26.6 Anion Gap (3-11) mmol/L 8.4 BUN (7-18) mg/dL 8 Creatinine (0.55-1.02) mg/dL 0.85 Estimated GFR/1.73 m2 (mL/min/1.73m2) >= 60.00 Glucose (74-106) mg/dL 140 H Lactate (0.6-1.4) mmol/L Calcium (8.5-10.1) mg/dL 9.0 Total Bilirubin (0.2-1.0) mg/dL 0.5 AST (15-37) U/L 14 L ALT (14-59) U/L 21 Alkaline Phosphatase (46-116) U/L 117 H C-Reactive Protein (0.0-0.3) mg/dL 7.35 H Total Protein (6.4-8.2) g/dL 7.9 Albumin (3.4-5.0) g/dL 3.7 Lipase (73-393) U/L 110 Urine Color (Yellow) Yellow Urine Clarity (Clear) Clear Urine pH (5-8) 6.5 Ur Specific [place] (1.005-1.025) 1.020 Urine Protein (Negative) mg/dL Negative Urine Ketones (Negative) mg/dL Negative Urine Blood (Negative) Trace-intact H Urine Nitrite (Negative) Negative Urine Bilirubin (Negative) Negative Urine Urobilinogen (Up TO 0.2) EU/dL 0.2 Ur Leukocyte Esterase (Negative) Trace H Urine RBC (0-2) HPF 3-5 H Urine WBC (0-5) HPF 10-20 H Ur Epithelial Cells (Negative) HPF Few Urine Crystals (Negative) HPF Negative Urine Bacteria (Negative) HPF Few Urine Casts (Negative) LPF Negative Urine Mucus (Negative) Trace Ur Culture Indicated? C&s done as ordered Urine Glucose (Negative) mg/dL Negative Patient ABO/Rh Antibody Screen Range/Units 03/30/19 03/30/19 03/30/19 10:52 12:20 13:25 WBC (4.4-10.8) k/cumm RBC (4.00-5.20) m/cumm Hgb (12.0-15.5) g/dL Hct (36.0-46.0) % MCV (80-95) fL MCH (27.0-33.0) pg MCHC (32.0-36.0) g/dL RDW (11.7-14.6) % Plt Count (130-400) x1000/uL MPV (8.0-11.0) fL Immature Gran % % Neutrophils % Lymphocytes % Monocytes % Eosinophils % Basophils % Absolute Neutrophils (1.2-6.7) k/cumm Absolute Lymphocytes (1.2-3.4) k/cumm Absolute Monocytes (0.11-0.7) k/cumm Absolute Eosinophils (0.0-0.7) k/cumm Absolute Basophils (0.0-0.2) k/cumm PT (9.3-11.0) sec 10.0 INR (0.9-1.1) 1.0 APTT (21.0-31.4) sec 29.0 Sodium (136-145) mmol/L Potassium (3.5-5.1) mmol/L Chloride (98-107) mmol/L Carbon Dioxide (21.0-32.0) mmol/L Anion Gap (3-11) mmol/L BUN (7-18) mg/dL Creatinine (0.55-1.02) mg/dL Estimated GFR/1.73 m2 (mL/min/1.73m2) Glucose (74-106) mg/dL Lactate (0.6-1.4) mmol/L 1.0 Calcium (8.5-10.1) mg/dL Total Bilirubin (0.2-1.0) mg/dL AST (15-37) U/L ALT (14-59) U/L Alkaline Phosphatase (46-116) U/L C-Reactive Protein (0.0-0.3) mg/dL Total Protein (6.4-8.2) g/dL Albumin (3.4-5.0) g/dL Lipase (73-393) U/L Urine Color (Yellow) Urine Clarity (Clear) Urine pH (5-8) Ur Specific [place] (1.005-1.025) Urine Protein (Negative) mg/dL Urine Ketones (Negative) mg/dL Urine Blood (Negative) Urine Nitrite (Negative) Urine Bilirubin (Negative) Urine Urobilinogen (Up TO 0.2) EU/dL Ur Leukocyte Esterase (Negative) Urine RBC (0-2) HPF Urine WBC (0-5) HPF Ur Epithelial Cells (Negative) HPF Urine Crystals (Negative) HPF Urine Bacteria (Negative) HPF Urine Casts (Negative) LPF Urine Mucus (Negative) Ur Culture Indicated? Urine Glucose (Negative) mg/dL Patient ABO/Rh O Positive Antibody Screen Negative
[2019-03-30] MEDS: Ketorolac 15 MG/ML VIAL IVP (19:47)
[2019-03-30] MEDS: Enoxaparin 40 MG/0.4 ML SYR SC (19:48)
[2019-03-30] MEDS: Normal Saline Flush 10 ML SYR IVP (19:48)
[2019-03-30] MEDS: PIPERACILLIN/TAZO 4.5 GM in Normal Saline 100 ML IVPB (21:17)
[2019-03-31] VITALS (145 sets, daily range): BP systolic 84–166; BP diastolic 25–127; PULSE 53–125; RESP 11–27; TEMP 36.6–37.3; O2SAT 91–98
[2019-03-31] MEDS: Ketorolac 15 MG/ML VIAL IVP ×4 (03:50→19:24)
[2019-03-31] MEDS: PIPERACILLIN/TAZO 4.5 GM in Normal Saline 100 ML IVPB ×3 (06:06→21:27)
[2019-03-31] MEDS: ACETAMINOPHEN 1,000 MG/100 ML BTL 400 MG IVPB ×3 (06:06→21:25)
[2019-03-31 07:03] LABS: Abs Immature Grans 0.02 k/cumm (0.0-0.09); Absolute Basophil Count 0.01 k/cumm (0.0-0.2); Absolute Lymphocyte Count 1.31 k/cumm (1.2-3.4); Absolute Monocyte Count 0.76 k/cumm (0.11-0.7); Absolute Neutrophil Count 8.46 k/cumm (1.2-6.7); Basophils % 0.1; HCT 34.1 % (36.0-46.0); HGB 11.3 g/dL (12.0-15.5); Immature Grans % 0.2 %; Lymphocytes % 12.4; Mean Corp. HGB Concentration 33.1 g/dL (32.0-36.0); Mean Corpuscular Hemoglobin 31.7 pg (27.0-33.0); Mean Corpuscular Volume 95.8 fL (80-95); Mean Platelet Volume 10.4 fL (8.0-11.0); Monocytes % 7.2; Neutrophils % 80.1; Platelet Count 221 x1000/uL (130-400); RBC 3.56 m/cumm (4.00-5.20); RBC Distribution Width 13.9 % (11.7-14.6); White Blood Cell Count 10.56 k/cumm (4.4-10.8)
[2019-03-31 07:37] LABS: Alkaline Phosphatase 80 U/L (46-116); BUN 9 mg/dL (7-18); Bilirubin, Total 0.5 mg/dL (0.2-1.0); Chloride 106 mmol/L (98-107); Glucose 117 mg/dL (74-106); Magnesium 1.8 mg/dL (1.8-2.4); Potassium 3.8 mmol/L (3.5-5.1); Sodium 140 mmol/L (136-145)
[2019-03-31] MEDS: Metoprolol CR 50 MG TABCR PO ×2 (07:48→19:24)
[2019-03-31 08:11] LABS: ALT 14 U/L (14-59); AST 16 U/L (15-37); Albumin 2.3 g/dL (3.4-5.0); C-Reactive Protein 19.44 mg/dL (0.0-0.3); TSH 0.68 uIU/mL (0.36-3.74); Total Protein 5.7 g/dL (6.4-8.2)
[2019-03-31] MEDS: methIMAzole 5 MG TAB PO (09:49)
[2019-03-31] MEDS: Lactated Ringers 1,000 ML 150 ML IV (10:45)
--- NOTE | 2019-03-31 12:00 | W.PM.PROGNOT ---
Date of Service Date of service: 03/31/19 Time of Service: 12:00 Assessment and Plan Assessment and plan (1) Acute perforated appendicitis: Status: Acute Assessment and plan: pt looks good. No signs of sepsis d/c chen walk high risk for abcess. cont abx and watchful waiting high risk ileus. see how she is doing later and will decide on clears. stick w/ water/ice for now. poss transfer to med surg later today. POD #1 (2) Graves disease: Status: Chronic (3) Hypertension: Status: Chronic Subjective Subjective Interval history since last seen: Pt is doing OK. no headaches. No CP or SOB. no productive cough. no dysuria. no leg pain or swelling. She is thirsty. not passing gas. pain well controlled. drainage from drain is turning creamy. no temps overnight. good urine ouput. Exam Const General: cooperative, healthy appearing, comfortable, no acute distress, well developed and well groomed Nutritional Appearance: average body habitus and well nourished Orientation: alert, awake and oriented x3 [facility] Head: normal to inspection, normocephalic and atraumatic Ears: hearing grossly normal bilaterally and external ears normal General nose exam: external nose normal Face and sinus: normal facial exam and sinuses nontender Mouth: oral mucosae normal, lip normal, tongue normal and moist mucous membranes Teeth and gingiva: dentition normal Eyes General: appearance normal, both eyes and all related structures Conjunctivae: conjunctivae normal Sclera: sclerae normal Pupils: PERRL Neck Neck: normal visual inspection and full ROM Chest Chest: normal inspection of the chest Resp Effort & Inspection: normal respiratory effort, able to speak in complete sentences, no cough, no nasal flaring, not tachypneic and no use of accessory muscles Auscultation: clear to auscultation bilaterally, no rales, no rhonchi and no wheezes Cardio Jugular venous pressure: no JVD Rate: regular rate Rhythm: regular rhythm GI Inspection: normal to inspection, no edema, distended and incision (brusing) Palpation: soft, no masses, tender in the RLQ and No ascites Auscultation: hypoactive bowel sounds Other: drain- creamy beige discharge Skin General skin exam: no rashes or lesions noted Trauma: no lacerations or abrasions Neuro General: alert, oriented x3, oriented, gait normal, moves all extremities, no focal motor deficits and CN's II-XI intact bilaterally Cognition: normal cognition Speech: speech normal Gait: normal gait Motor: muscle tone normal throughout Extrem General: normal to inspection, full ROM and no clubbing, cyanosis or edema Psych Appearance: grossly normal and well kempt Mental Status: mental status grossly normal Speech and Movement: speech and movement normal Affect: normal affect Objective Objective Clinical Data: Abnormal lab results 03/30/19 03/31/19 03/31/19 Range/Units 10:52 06:05 06:05 RBC 3.56 L (4.00-5.20) m/cumm Hgb 11.3 L D (12.0-15.5) g/dL Hct 34.1 L (36.0-46.0) % MCV 95.8 H (80-95) fL Absolute Neutrophils 8.46 H (1.2-6.7) k/cumm Absolute Monocytes 0.76 H (0.11-0.7) k/cumm Glucose 117 H (74-106) mg/dL Calcium 8.0 L (8.5-10.1) mg/dL C-Reactive Protein 7.35 H 19.44 H (0.0-0.3) mg/dL Total Protein 5.7 L (6.4-8.2) g/dL Albumin 2.3 L (3.4-5.0) g/dL Vital Signs Temperature 37.0 C 03/31/19 08:46 Temperature Source Temporal Artery Scan 03/31/19 04:00 Pulse 67 03/31/19 08:46 Pulse 75 03/30/19 21:15 Respiratory Rate 20 03/31/19 08:46 Respiratory Effort 03/31/19 08:46 Respiratory Depth Normal 03/31/19 08:46 Respiratory Pattern Normal 03/31/19 08:46 Blood Pressure 116/54 L 03/31/19 08:46 Blood Pressure Mean 74 03/31/19 08:46 Blood Pressure Position Supine 03/31/19 08:46 Pulse Oximetry 97 03/31/19 08:46 Oxygen Delivery Method Nasal Cannula 03/31/19 04:00 Oxygen Flow Rate 2 03/31/19 04:00 Pain Level 7 03/31/19 08:46 Intake & Output 03/30/19 03/31/19 03/31/19 23:59 11:59 23:59 Intake Total 1750 / 2750 2100 / 2100 Output Total 860 / 860 640 / 640 Balance 890 / 1890 1460 / 1460 Weight 107.955 kg Intake: IV 1750 / 2750 1800 / 1800 Oral 300 / 300 Output: Drainage 90 / 90 40 / 40 Left Lower Abdomen 90 / 90 40 / 40 Urine 750 / 750 600 / 600 Estimated Blood Loss Other: Urine Color Yellow Yellow Urine Appearance Clear Comment urinary catheter, cyu urinary catheter patient draining clear yellow urine. Laboratory Results WBC 10.56 k/cumm (4.4-10.8) D 03/31/19 06:05 RBC 3.56 m/cumm (4.00-5.20) L 03/31/19 06:05 Hgb 11.3 g/dL (12.0-15.5) L D 03/31/19 06:05 Hct 34.1 % (36.0-46.0) L 03/31/19 06:05 MCV 95.8 fL (80-95) H 03/31/19 06:05 MCH 31.7 pg (27.0-33.0) 03/31/19 06:05 MCHC 33.1 g/dL (32.0-36.0) 03/31/19 06:05 RDW 13.9 % (11.7-14.6) 03/31/19 06:05 Plt Count 221 x1000/uL (130-400) 03/31/19 06:05 MPV 10.4 fL (8.0-11.0) 03/31/19 06:05 Immature Gran % 0.2 % 03/31/19 06:05 Neutrophils % 80.1 03/31/19 06:05 Lymphocytes % 12.4 03/31/19 06:05 Monocytes % 7.2 03/31/19 06:05 Eosinophils % 0.0 03/31/19 06:05 Basophils % 0.1 03/31/19 06:05 Absolute Neutrophils 8.46 k/cumm (1.2-6.7) H 03/31/19 06:05 Absolute Lymphocytes 1.31 k/cumm (1.2-3.4) 03/31/19 06:05 Absolute Monocytes 0.76 k/cumm (0.11-0.7) H 03/31/19 06:05 Absolute Eosinophils 0.00 k/cumm (0.0-0.7) 03/31/19 06:05 Absolute Basophils 0.01 k/cumm (0.0-0.2) 03/31/19 06:05 PT 10.0 sec (9.3-11.0) 03/30/19 10:52 INR 1.0 (0.9-1.1) 03/30/19 10:52 APTT 29.0 sec (21.0-31.4) 03/30/19 10:52 Sodium 140 mmol/L (136-145) 03/31/19 06:05 Potassium 3.8 mmol/L (3.5-5.1) 03/31/19 06:05 Chloride 106 mmol/L (98-107) 03/31/19 06:05 Carbon Dioxide 23.0 mmol/L (21.0-32.0) 03/31/19 06:05 Anion Gap 11.0 mmol/L (3-11) 03/31/19 06:05 BUN 9 mg/dL (7-18) 03/31/19 06:05 Creatinine 0.70 mg/dL (0.55-1.02) 03/31/19 06:05 Estimated GFR/1.73 m2 >= 60.00 (mL/min/1.73m2) 03/31/19 06:05 Glucose 117 mg/dL (74-106) H 03/31/19 06:05 Lactate 1.0 mmol/L (0.6-1.4) 03/30/19 13:25 Calcium 8.0 mg/dL (8.5-10.1) L 03/31/19 06:05 Magnesium 1.8 mg/dL (1.8-2.4) 03/31/19 06:05 Total Bilirubin 0.5 mg/dL (0.2-1.0) 03/31/19 06:05 AST 16 U/L (15-37) 03/31/19 06:05 ALT 14 U/L (14-59) 03/31/19 06:05 Alkaline Phosphatase 80 U/L (46-116) 03/31/19 06:05 C-Reactive Protein 19.44 mg/dL (0.0-0.3) H 03/31/19 06:05 Total Protein 5.7 g/dL (6.4-8.2) L 03/31/19 06:05 Albumin 2.3 g/dL (3.4-5.0) L 03/31/19 06:05 Lipase 110 U/L (73-393) 03/30/19 10:52 TSH 0.68 uIU/mL (0.36-3.74) 03/31/19 06:05 Urine Color Yellow (Yellow) 03/30/19 10:40 Urine Clarity Clear (Clear) 03/30/19 10:40 Urine pH 6.5 (5-8) 03/30/19 10:40 Ur Specific [place] 1.020 (1.005-1.025) 03/30/19 10:40 Urine Protein Negative mg/dL (Negative) 03/30/19 10:40 Urine Ketones Negative mg/dL (Negative) 03/30/19 10:40 Urine Blood Trace-intact (Negative) H 03/30/19 10:40 Urine Nitrite Negative (Negative) 03/30/19 10:40 Urine Bilirubin Negative (Negative) 03/30/19 10:40 Urine Urobilinogen 0.2 EU/dL (Up TO 0.2) 03/30/19 10:40 Ur Leukocyte Esterase Trace (Negative) H 03/30/19 10:40 Urine RBC 3-5 HPF (0-2) H 03/30/19 10:40 Urine WBC 10-20 HPF (0-5) H 03/30/19 10:40 Ur Epithelial Cells Few HPF (Negative) 03/30/19 10:40 Urine Crystals Negative HPF (Negative) 03/30/19 10:40 Urine Bacteria Few HPF (Negative) 03/30/19 10:40 Urine Casts Negative LPF (Negative) 03/30/19 10:40 Urine Mucus Trace (Negative) 03/30/19 10:40 Ur Culture Indicated? C&s done as ordered 03/30/19 10:40 Urine Glucose Negative mg/dL (Negative) 03/30/19 10:40 Patient ABO/Rh O Positive 03/30/19 12:20 Antibody Screen Negative 03/30/19 12:20
--- NOTE | 2019-03-31 12:59 | PDOC.CMIN ---
- If Service Date Differs Date of service: 03/31/19 Time of Service: 12:59 Care Management Initial Assess REASON FOR HOSPITALIZATION:: Ruptured Appendix PAST MEDICAL HISTORY/PAST SURGICAL HISTORY:: Arthritis, HTN, Graves disease, chest pain. Surgical hx: Arthroplasty, and cholecystectomy. PREVIOUS FUNCTIONAL STATUS/SOCIAL/FAMILY SUPPORTS:: Tameka lives in [place], [place] she is independent with ADL's, she has two grown sons that live local. 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 CURRENT FUNCTIONAL STATUS:: Tameka is alert and engaged with CM during assessment. She states she waited a few days before coming into the hospital when her abdominal pain started. She thought it may have been her IBS until her pain became worse and she was unable to tolerate. She is now status post appendectomy after a ruptured appendix. Tameka is receiving IV abx and IV fluids. ADVANCE DIRECTIVES:: Patient states she has completed them none on file CM will verify w/[facility] Has patient been provided with information about the portal?: Yes Did the patient sign up for the portal?: No CODE STATUS:: Full Code INSURANCE COVERAGE / FINANCIAL ISSUES:: [employer] CURRENT HOME/COMMUNITY SERVICES/EQUIPMENT:: None PRIMARY CARE PHYSICIAN:: Wilma Spears POTENTIAL DISCHARGE NEEDS:: Follow up with surgical services and primary care as directed. PATIENT/FAMILY EDUCATION NEEDS:: Discharge education, limitations and follow up plan of care including ask me three and self management. ANTICIPATED BARRIERS TO DISCHARGE:: None TRANSPORTATION:: Via private car with family at time of discharge PLAN:: Tameka remains ICU level of care today she will be discharged when medically ready. CM will continue to assess for discharge needs and provide support discharge planning.
--- NOTE | 2019-03-31 16:04 | CHAPLAIN ---
Tameka was resting in bed when I visited. She told me about having her appendix out. She said she was at home dealing with pain and bloating, and drank some tea because she said that's usually what she does first. It helped the bloating, but not the pain. Tameka shared some personal history telling me that she is a , and traveled to [place] and [place] thinking she might move there but returned here when he son and his girlfriend had a baby.
[2019-03-31] MEDS: Enoxaparin 40 MG/0.4 ML SYR SC (18:13)
[2019-04-01] MEDS: Ketorolac 15 MG/ML VIAL IVP ×4 (02:00→20:23)
[2019-04-01 03:35] VITALS: BP 114/69; PULSE 76; RESP 19; TEMP 37; O2SAT 96
[2019-04-01] MEDS: PIPERACILLIN/TAZO 4.5 GM in Normal Saline 100 ML IVPB ×3 (06:00→22:37)
[2019-04-01] MEDS: ACETAMINOPHEN 1,000 MG/100 ML BTL 400 MG IVPB ×3 (06:00→22:37)
--- NOTE | 2019-04-01 07:02 | NUR.NOTE ---
Nursing Note: Pt came out of ICU to room 218 at approximately 23:46. Pt walked to her new room. She was having minimal pain. Pt vital signs are stable. KVNG drain intact putting out serosanguineous fluid, 2 trocar sites C/D/I covered with bandaids. All belongings moved with patient. Will continue to monitor.
[2019-04-01] MEDS: Normal Saline Flush 10 ML SYR IVP ×3 (07:30→15:02)
[2019-04-01 07:39] VITALS: BP 116/76; PULSE 79; RESP 17; TEMP 37; O2SAT 95
[2019-04-01 07:59] LABS: Abs Immature Grans 0.04 k/cumm (0.0-0.09); Absolute Basophil Count 0.01 k/cumm (0.0-0.2); Absolute Eosinophil Count 0.05 k/cumm (0.0-0.7); Absolute Monocyte Count 0.79 k/cumm (0.11-0.7); Basophils % 0.1; Eosinophils % 0.4; HCT 32.3 % (36.0-46.0); HGB 10.4 g/dL (12.0-15.5); Immature Grans % 0.3 %; Lymphocytes % 12.3; Mean Corp. HGB Concentration 32.2 g/dL (32.0-36.0); Mean Corpuscular Volume 96.4 fL (80-95); Mean Platelet Volume 10.1 fL (8.0-11.0); Monocytes % 5.8; Neutrophils % 81.1; Platelet Count 249 x1000/uL (130-400); RBC 3.35 m/cumm (4.00-5.20); RBC Distribution Width 13.7 % (11.7-14.6); White Blood Cell Count 13.63 k/cumm (4.4-10.8)
[2019-04-01 08:01] LABS: Absolute Lymphocyte Count 1.68 k/cumm (1.2-3.4); Absolute Neutrophil Count 11.05 k/cumm (1.2-6.7)
--- NOTE | 2019-04-01 08:16 | CMPROGNOTE_ITS ---
- If Service Date Differs Date of service: 04/01/19 Time of Service: 08:16 Care Management Progress Note S/O:CM met with patient at the bedside she states she is feeling better today. Tameka continues to have the KVNG drain if she is to discharged with the drain she will need home health services for nursing. Tameka has community support through [facility] who will be updated prior to patients discharge. A:Tameka is a 64 year old female admitted with ruptured appendix status post lap appy P:Tameka will be discharged home when medically ready. CM will continue to assess for discharge needs and provide support discharge planning. Anticipate she will need home health nursing and resumption of [facility] supports. Tameka will be transported home via private car with family at time of discharge.
--- NOTE | 2019-04-01 08:21 | W.PM.PROGNOT ---
Date of Service Date of service: 04/01/19 Time of Service: 07:40 Assessment and Plan Assessment and plan (1) Acute perforated appendicitis: Status: Acute Assessment and plan: A\\ 64 year old POD #2 s/p Lap appendectomy for ruptured appendix. Drain in place. Draining cloudy fluid High risk for abscess formation which was discussed with the patient. She is tolerating clear liquids but doesn't feel like advancing her diet WBC count increased since yesterday. CRP pending P\\ Continue antibiotics Continue Clear liquid diet Low threshold for repeat CT scan if WBC count continues to increase. (2) Hypertension: Status: Chronic Qualifiers: Hypertension type: essential hypertension Qualified Code(s): I10 - Essential (primary) hypertension (3) Leukocytosis: Status: Acute Assessment and plan: Repeat labs in am Qualifiers: Leukocytosis type: lymphocytosis Qualified Code(s): D72.820 - Lymphocytosis (symptomatic) Subjective Subjective Interval history since last seen: Mrs. Lyles is POD #2 from Laparoscopic appendectomy. She was found to have a ruptured appendix. She was started on clear liquids last night which she is tolerating. She complains of cramping abdominal pain. She had a BM last night and has passed a small amount of flatus. She did have a low grade fever last night. Overall she feels a little better. Exam Const General: cooperative, comfortable and no acute distress HENMT Head: normocephalic and atraumatic Resp Effort & Inspection: normal respiratory effort Auscultation: clear to auscultation bilaterally Cardio Rate: regular rate Rhythm: regular rhythm Heart Sounds: no gallops, no murmurs and no rubs GI Inspection: incision (c/d/i) Palpation: soft and tender (RLQ without gurading or rebound) Auscultation: normal bowel sounds Other: KVNG drain with cloudy fluid Objective Objective Clinical Data: Abnormal lab results 04/01/19 Range/Units 07:40 WBC 13.63 H (4.4-10.8) k/cumm RBC 3.35 L (4.00-5.20) m/cumm Hgb 10.4 L (12.0-15.5) g/dL Hct 32.3 L (36.0-46.0) % MCV 96.4 H (80-95) fL Absolute Neutrophils 11.05 H (1.2-6.7) k/cumm Absolute Monocytes 0.79 H (0.11-0.7) k/cumm Vital Signs Temperature 98.6 F 04/01/19 07:39 Temperature Source Tympanic 04/01/19 07:39 Pulse 79 04/01/19 07:39 Pulse 74 03/31/19 21:13 Respiratory Rate 17 04/01/19 07:39 Respiratory Effort 03/31/19 23:50 Respiratory Depth Normal 03/31/19 23:50 Respiratory Pattern Normal 03/31/19 23:50 Blood Pressure 116/76 04/01/19 07:39 Blood Pressure Mean 57 03/31/19 21:13 Blood Pressure Position Sitting 03/31/19 19:30 Pulse Oximetry 95 04/01/19 07:39 Oxygen Delivery Method Room Air 04/01/19 07:39 Oxygen Flow Rate 0 04/01/19 07:39 Pain Level 0 04/01/19 07:39 Intake & Output 03/31/19 03/31/19 04/01/19 11:59 23:59 11:59 Intake Total 2100 / 4860 2760 / 4860 1250 / 1250 Output Total 640 / 1930 1290 / 1930 390 / 390 Balance 1460 / 2930 1470 / 2930 860 / 860 Intake: IV 1800 / 2700 900 / 2700 100 / 100 Oral 300 / 2160 1860 / 2160 1150 / 1150 Output: Drainage 40 / 280 240 / 280 140 / 140 Left Lower Abdomen 40 / 280 240 / 280 140 / 140 Urine 600 / 1650 1050 / 1650 250 / 250 Other: Urine Color Yellow Yellow Yellow Urine Appearance Clear Clear Urine Odor Normal Comment urinary catheter patient draining clear yellow urine. up to void in commode Stool Size Moderate Stool Characteristics Brown Voiding Methods Toilet Laboratory Results WBC 13.63 k/cumm (4.4-10.8) H 04/01/19 07:40 RBC 3.35 m/cumm (4.00-5.20) L 04/01/19 07:40 Hgb 10.4 g/dL (12.0-15.5) L 04/01/19 07:40 Hct 32.3 % (36.0-46.0) L 04/01/19 07:40 MCV 96.4 fL (80-95) H 04/01/19 07:40 MCH 31.0 pg (27.0-33.0) 04/01/19 07:40 MCHC 32.2 g/dL (32.0-36.0) 04/01/19 07:40 RDW 13.7 % (11.7-14.6) 04/01/19 07:40 Plt Count 249 x1000/uL (130-400) 04/01/19 07:40 MPV 10.1 fL (8.0-11.0) 04/01/19 07:40 Immature Gran % 0.3 % 04/01/19 07:40 Neutrophils % 81.1 04/01/19 07:40 Lymphocytes % 12.3 04/01/19 07:40 Monocytes % 5.8 04/01/19 07:40 Eosinophils % 0.4 04/01/19 07:40 Basophils % 0.1 04/01/19 07:40 Absolute Neutrophils 11.05 k/cumm (1.2-6.7) H 04/01/19 07:40 Absolute Lymphocytes 1.68 k/cumm (1.2-3.4) 04/01/19 07:40 Absolute Monocytes 0.79 k/cumm (0.11-0.7) H 04/01/19 07:40 Absolute Eosinophils 0.05 k/cumm (0.0-0.7) 04/01/19 07:40 Absolute Basophils 0.01 k/cumm (0.0-0.2) 04/01/19 07:40 PT 10.0 sec (9.3-11.0) 03/30/19 10:52 INR 1.0 (0.9-1.1) 03/30/19 10:52 APTT 29.0 sec (21.0-31.4) 03/30/19 10:52 Sodium 140 mmol/L (136-145) 03/31/19 06:05 Potassium 3.8 mmol/L (3.5-5.1) 03/31/19 06:05 Chloride 106 mmol/L (98-107) 03/31/19 06:05 Carbon Dioxide 23.0 mmol/L (21.0-32.0) 03/31/19 06:05 Anion Gap 11.0 mmol/L (3-11) 03/31/19 06:05 BUN 9 mg/dL (7-18) 03/31/19 06:05 Creatinine 0.70 mg/dL (0.55-1.02) 03/31/19 06:05 Estimated GFR/1.73 m2 >= 60.00 (mL/min/1.73m2) 03/31/19 06:05 Glucose 117 mg/dL (74-106) H 03/31/19 06:05 Lactate 1.0 mmol/L (0.6-1.4) 03/30/19 13:25 Calcium 8.0 mg/dL (8.5-10.1) L 03/31/19 06:05 Magnesium 1.8 mg/dL (1.8-2.4) 03/31/19 06:05 Total Bilirubin 0.5 mg/dL (0.2-1.0) 03/31/19 06:05 AST 16 U/L (15-37) 03/31/19 06:05 ALT 14 U/L (14-59) 03/31/19 06:05 Alkaline Phosphatase 80 U/L (46-116) 03/31/19 06:05 C-Reactive Protein 19.44 mg/dL (0.0-0.3) H 03/31/19 06:05 Total Protein 5.7 g/dL (6.4-8.2) L 03/31/19 06:05 Albumin 2.3 g/dL (3.4-5.0) L 03/31/19 06:05 Lipase 110 U/L (73-393) 03/30/19 10:52 TSH 0.68 uIU/mL (0.36-3.74) 03/31/19 06:05 Urine Color Yellow (Yellow) 03/30/19 10:40 Urine Clarity Clear (Clear) 03/30/19 10:40 Urine pH 6.5 (5-8) 03/30/19 10:40 Ur Specific [place] 1.020 (1.005-1.025) 03/30/19 10:40 Urine Protein Negative mg/dL (Negative) 03/30/19 10:40 Urine Ketones Negative mg/dL (Negative) 03/30/19 10:40 Urine Blood Trace-intact (Negative) H 03/30/19 10:40 Urine Nitrite Negative (Negative) 03/30/19 10:40 Urine Bilirubin Negative (Negative) 03/30/19 10:40 Urine Urobilinogen 0.2 EU/dL (Up TO 0.2) 03/30/19 10:40 Ur Leukocyte Esterase Trace (Negative) H 03/30/19 10:40 Urine RBC 3-5 HPF (0-2) H 03/30/19 10:40 Urine WBC 10-20 HPF (0-5) H 03/30/19 10:40 Ur Epithelial Cells Few HPF (Negative) 03/30/19 10:40 Urine Crystals Negative HPF (Negative) 03/30/19 10:40 Urine Bacteria Few HPF (Negative) 03/30/19 10:40 Urine Casts Negative LPF (Negative) 03/30/19 10:40 Urine Mucus Trace (Negative) 03/30/19 10:40 Ur Culture Indicated? C&s done as ordered 03/30/19 10:40 Urine Glucose Negative mg/dL (Negative) 03/30/19 10:40 Patient ABO/Rh O Positive 03/30/19 12:20 Antibody Screen Negative 03/30/19 12:20
[2019-04-01 08:22] LABS: C-Reactive Protein > 25.00 mg/dL (0.0-0.3)
[2019-04-01] MEDS: methIMAzole 5 MG TAB PO (09:32)
[2019-04-01] MEDS: Metoprolol CR 50 MG TABCR PO ×2 (09:32→20:22)
[2019-04-01 11:14] VITALS: BP 123/68; PULSE 72; RESP 20; TEMP 37; O2SAT 97
--- NOTE | 2019-04-01 12:41 | W.NUTCONSULT ---
Date of service: 04/01/19 Time of Service: 12:41 Nutritional Consult ASSESSMENT: 61 year old female admitted with acute perforated appendicitis, sepsis. Currently on clear liquid diet. BMI indicates class 2 obesity. Will monitor diet progression and intake and make adjustments to meal plan as needed. MONITORING AND EVALUATION: diet, po intake, labs, weights Time Spent in Nutritional Counseling and Treatment: 0 time spent face to face
--- NOTE | 2019-04-01 14:21 | W.PM.PROGNOT ---
Date of Service Date of service: 04/01/19 Time of Service: 14:21 Assessment and Plan Assessment and plan (1) Acute perforated appendicitis: Status: Acute Assessment and plan: A\\ Having some increased bloating this afternoon No fevers No N/V P\\ Start protonix 40 mg IV daily Mylanta 30 ml Q4H as needed Simethicone 80 mg chewable q6H prn Recommend patient slow down a bit on her intake. She is still getting IV fluids Ambulate as much as possible Concerned for abscess formation especially in light of her WBC count and CRP going up. Subjective Subjective Interval history since last seen: Has been drinking a lot up to now. Feeling bloated. NO N/V. No fevers Exam GI Inspection: normal to inspection Palpation: soft and tender in the RLQ (no guarding or rebound) Auscultation: normoactive bowel sounds Objective Objective Clinical Data: Abnormal lab results 04/01/19 04/01/19 Range/Units 07:40 07:40 WBC 13.63 H (4.4-10.8) k/cumm RBC 3.35 L (4.00-5.20) m/cumm Hgb 10.4 L (12.0-15.5) g/dL Hct 32.3 L (36.0-46.0) % MCV 96.4 H (80-95) fL Absolute Neutrophils 11.05 H (1.2-6.7) k/cumm Absolute Monocytes 0.79 H (0.11-0.7) k/cumm C-Reactive Protein > 25.00 H (0.0-0.3) mg/dL Vital Signs Temperature 98.6 F 04/01/19 11:14 Temperature Source Tympanic 04/01/19 11:14 Pulse 72 04/01/19 11:14 Pulse Rhythm Regular 04/01/19 11:00 Pulse 74 03/31/19 21:13 Respiratory Rate 20 04/01/19 11:14 Respiratory Effort Non-Labored 04/01/19 11:00 Respiratory Depth Normal 04/01/19 11:00 Respiratory Pattern Normal 04/01/19 11:00 Blood Pressure 123/68 04/01/19 11:14 Blood Pressure Mean 57 03/31/19 21:13 Blood Pressure Position Sitting 03/31/19 19:30 Pulse Oximetry 97 04/01/19 11:14 Oxygen Delivery Method Room Air 04/01/19 11:14 Oxygen Flow Rate 0 04/01/19 11:14 Pain Level 6 04/01/19 13:31 Intake & Output 03/31/19 04/01/19 04/01/19 23:59 11:59 23:59 Intake Total 2760 / 4860 2070 / 2670 600 / 2670 Output Total 1290 / 1930 1215 / 1215 Balance 1470 / 2930 855 / 1455 600 / 1455 Weight 240 lb 8.389 oz Intake: IV 900 / 2700 200 / 200 Oral 1860 / 2160 1870 / 2470 600 / 2470 Output: Drainage 240 / 280 190 / 190 Left Lower Abdomen 240 / 280 190 / 190 Urine 1050 / 1650 1025 / 1025 Other: Urine Color Yellow Yellow Urine Appearance Clear Clear Urine Odor Normal Comment up to void in commode Stool Size Moderate Stool Characteristics Soft Liquid Voiding Methods Toilet Laboratory Results WBC 13.63 k/cumm (4.4-10.8) H 04/01/19 07:40 RBC 3.35 m/cumm (4.00-5.20) L 04/01/19 07:40 Hgb 10.4 g/dL (12.0-15.5) L 04/01/19 07:40 Hct 32.3 % (36.0-46.0) L 04/01/19 07:40 MCV 96.4 fL (80-95) H 04/01/19 07:40 MCH 31.0 pg (27.0-33.0) 04/01/19 07:40 MCHC 32.2 g/dL (32.0-36.0) 04/01/19 07:40 RDW 13.7 % (11.7-14.6) 04/01/19 07:40 Plt Count 249 x1000/uL (130-400) 04/01/19 07:40 MPV 10.1 fL (8.0-11.0) 04/01/19 07:40 Immature Gran % 0.3 % 04/01/19 07:40 Neutrophils % 81.1 04/01/19 07:40 Lymphocytes % 12.3 04/01/19 07:40 Monocytes % 5.8 04/01/19 07:40 Eosinophils % 0.4 04/01/19 07:40 Basophils % 0.1 04/01/19 07:40 Absolute Neutrophils 11.05 k/cumm (1.2-6.7) H 04/01/19 07:40 Absolute Lymphocytes 1.68 k/cumm (1.2-3.4) 04/01/19 07:40 Absolute Monocytes 0.79 k/cumm (0.11-0.7) H 04/01/19 07:40 Absolute Eosinophils 0.05 k/cumm (0.0-0.7) 04/01/19 07:40 Absolute Basophils 0.01 k/cumm (0.0-0.2) 04/01/19 07:40 PT 10.0 sec (9.3-11.0) 03/30/19 10:52 INR 1.0 (0.9-1.1) 03/30/19 10:52 APTT 29.0 sec (21.0-31.4) 03/30/19 10:52 Sodium 140 mmol/L (136-145) 03/31/19 06:05 Potassium 3.8 mmol/L (3.5-5.1) 03/31/19 06:05 Chloride 106 mmol/L (98-107) 03/31/19 06:05 Carbon Dioxide 23.0 mmol/L (21.0-32.0) 03/31/19 06:05 Anion Gap 11.0 mmol/L (3-11) 03/31/19 06:05 BUN 9 mg/dL (7-18) 03/31/19 06:05 Creatinine 0.70 mg/dL (0.55-1.02) 03/31/19 06:05 Estimated GFR/1.73 m2 >= 60.00 (mL/min/1.73m2) 03/31/19 06:05 Glucose 117 mg/dL (74-106) H 03/31/19 06:05 Lactate 1.0 mmol/L (0.6-1.4) 03/30/19 13:25 Calcium 8.0 mg/dL (8.5-10.1) L 03/31/19 06:05 Magnesium 1.8 mg/dL (1.8-2.4) 03/31/19 06:05 Total Bilirubin 0.5 mg/dL (0.2-1.0) 03/31/19 06:05 AST 16 U/L (15-37) 03/31/19 06:05 ALT 14 U/L (14-59) 03/31/19 06:05 Alkaline Phosphatase 80 U/L (46-116) 03/31/19 06:05 C-Reactive Protein > 25.00 mg/dL (0.0-0.3) H 04/01/19 07:40 Total Protein 5.7 g/dL (6.4-8.2) L 03/31/19 06:05 Albumin 2.3 g/dL (3.4-5.0) L 03/31/19 06:05 Lipase 110 U/L (73-393) 03/30/19 10:52 TSH 0.68 uIU/mL (0.36-3.74) 03/31/19 06:05 Urine Color Yellow (Yellow) 03/30/19 10:40 Urine Clarity Clear (Clear) 03/30/19 10:40 Urine pH 6.5 (5-8) 03/30/19 10:40 Ur Specific [place] 1.020 (1.005-1.025) 03/30/19 10:40 Urine Protein Negative mg/dL (Negative) 03/30/19 10:40 Urine Ketones Negative mg/dL (Negative) 03/30/19 10:40 Urine Blood Trace-intact (Negative) H 03/30/19 10:40 Urine Nitrite Negative (Negative) 03/30/19 10:40 Urine Bilirubin Negative (Negative) 03/30/19 10:40 Urine Urobilinogen 0.2 EU/dL (Up TO 0.2) 03/30/19 10:40 Ur Leukocyte Esterase Trace (Negative) H 03/30/19 10:40 Urine RBC 3-5 HPF (0-2) H 03/30/19 10:40 Urine WBC 10-20 HPF (0-5) H 03/30/19 10:40 Ur Epithelial Cells Few HPF (Negative) 03/30/19 10:40 Urine Crystals Negative HPF (Negative) 03/30/19 10:40 Urine Bacteria Few HPF (Negative) 03/30/19 10:40 Urine Casts Negative LPF (Negative) 03/30/19 10:40 Urine Mucus Trace (Negative) 03/30/19 10:40 Ur Culture Indicated? C&s done as ordered 03/30/19 10:40 Urine Glucose Negative mg/dL (Negative) 03/30/19 10:40 Patient ABO/Rh O Positive 03/30/19 12:20 Antibody Screen Negative 03/30/19 12:20
[2019-04-01] MEDS: Pantoprazole 40 MG VIAL IVP (15:02)
[2019-04-01] MEDS: Lactated Ringers 1,000 ML 80 ML IV (16:10)
[2019-04-01 17:01] VITALS: BP 136/75; PULSE 83; RESP 18; TEMP 38.2; O2SAT 96
[2019-04-01] MEDS: Simethicone 80 MG CHEW PO ×2 (18:03→22:36)
[2019-04-01] MEDS: Enoxaparin 40 MG/0.4 ML SYR SC (18:04)
[2019-04-01 18:07] VITALS: TEMP 36.7
[2019-04-02 00:41] VITALS: BP 143/72; PULSE 75; RESP 18; TEMP 37; O2SAT 94
[2019-04-02] MEDS: Ketorolac 15 MG/ML VIAL IVP ×4 (02:08→20:57)
[2019-04-02] MEDS: Lactated Ringers 1,000 ML 80 ML IV (04:50)
[2019-04-02] MEDS: ACETAMINOPHEN 1,000 MG/100 ML BTL 400 MG IVPB ×3 (05:31→21:07)
[2019-04-02] MEDS: PIPERACILLIN/TAZO 4.5 GM in Normal Saline 100 ML IVPB ×3 (05:31→21:08)
--- NOTE | 2019-04-02 06:25 | PGE_ITS ---
Date of Service Date of service: 04/02/19 Time of Service: 06:25 Assessment and Plan Assessment and plan (1) Acute perforated appendicitis: Status: Acute Assessment and plan: A\\ Feeling better then yesterday afternoon KVNG drainage is more serous No fevers No N/V Feels hungry P\\ Continue protonix 40 mg IV daily Mylanta 30 ml Q4H as needed Simethicone 80 mg chewable q6H prn Advance diet to soft Labs pending Concerned for abscess formation especially in light of her WBC count and CRP going up. Subjective Subjective Interval history since last seen: Had a good night Abdomen feels less distended Passing flatus Exam Resp Effort & Inspection: normal respiratory effort Auscultation: clear to auscultation bilaterally Cardio Rate: regular rate Rhythm: regular rhythm Heart Sounds: no gallops, no murmurs and no rubs GI Inspection: normal to inspection and incision (c/d/i) Palpation: soft and nontender Auscultation: normal bowel sounds Objective Objective Clinical Data: Abnormal lab results 04/01/19 04/01/19 Range/Units 07:40 07:40 WBC 13.63 H (4.4-10.8) k/cumm RBC 3.35 L (4.00-5.20) m/cumm Hgb 10.4 L (12.0-15.5) g/dL Hct 32.3 L (36.0-46.0) % MCV 96.4 H (80-95) fL Absolute Neutrophils 11.05 H (1.2-6.7) k/cumm Absolute Monocytes 0.79 H (0.11-0.7) k/cumm C-Reactive Protein > 25.00 H (0.0-0.3) mg/dL Vital Signs Temperature 98.6 F 04/02/19 00:41 Temperature Source Tympanic 04/02/19 00:41 Pulse 75 04/02/19 00:41 Pulse Rhythm Regular 04/02/19 02:17 Pulse 74 03/31/19 21:13 Respiratory Rate 18 04/02/19 00:41 Respiratory Effort Non-Labored 04/02/19 02:17 Respiratory Depth Normal 04/02/19 02:17 Respiratory Pattern Normal 04/02/19 02:17 Blood Pressure 143/72 H 04/02/19 00:41 Blood Pressure Mean 57 03/31/19 21:13 Blood Pressure Position Sitting 03/31/19 19:30 Pulse Oximetry 94 L 04/02/19 00:41 Oxygen Delivery Method Room Air 04/02/19 00:41 Oxygen Flow Rate 0 04/02/19 00:41 Pain Level 5 04/02/19 00:41 Comment 04/02/19 00:41 Intake & Output 04/01/19 04/01/19 04/02/19 11:59 23:59 11:59 Intake Total 2170 / 3856 1686 / 3856 573.333 / 573.333 Output Total 1215 / 2940 1725 / 2940 730 / 730 Balance 955 / 916 -39 / 916 -156.667 / -156.667 Weight 240 lb 8.389 oz Intake: IV 300 / 1136 836 / 1136 573.333 / 573.333 Oral 1870 / 2720 850 / 2720 Output: Drainage 190 / 265 75 / 265 30 / 30 Left Lower Abdomen 190 / 265 75 / 265 30 / 30 Urine 1025 / 2675 1650 / 2675 700 / 700 Other: Urine Color Yellow Yellow Yellow Urine Appearance Clear Clear Clear Urine Odor Normal Normal Stool Size Moderate Large Moderate Stool Characteristics Soft Liquid Liquid Liquid Brown Voiding Methods Toilet Toilet Toilet Laboratory Results WBC 13.63 k/cumm (4.4-10.8) H 04/01/19 07:40 RBC 3.35 m/cumm (4.00-5.20) L 04/01/19 07:40 Hgb 10.4 g/dL (12.0-15.5) L 04/01/19 07:40 Hct 32.3 % (36.0-46.0) L 04/01/19 07:40 MCV 96.4 fL (80-95) H 04/01/19 07:40 MCH 31.0 pg (27.0-33.0) 04/01/19 07:40 MCHC 32.2 g/dL (32.0-36.0) 04/01/19 07:40 RDW 13.7 % (11.7-14.6) 04/01/19 07:40 Plt Count 249 x1000/uL (130-400) 04/01/19 07:40 MPV 10.1 fL (8.0-11.0) 04/01/19 07:40 Immature Gran % 0.3 % 04/01/19 07:40 Neutrophils % 81.1 04/01/19 07:40 Lymphocytes % 12.3 04/01/19 07:40 Monocytes % 5.8 04/01/19 07:40 Eosinophils % 0.4 04/01/19 07:40 Basophils % 0.1 04/01/19 07:40 Absolute Neutrophils 11.05 k/cumm (1.2-6.7) H 04/01/19 07:40 Absolute Lymphocytes 1.68 k/cumm (1.2-3.4) 04/01/19 07:40 Absolute Monocytes 0.79 k/cumm (0.11-0.7) H 04/01/19 07:40 Absolute Eosinophils 0.05 k/cumm (0.0-0.7) 04/01/19 07:40 Absolute Basophils 0.01 k/cumm (0.0-0.2) 04/01/19 07:40 PT 10.0 sec (9.3-11.0) 03/30/19 10:52 INR 1.0 (0.9-1.1) 03/30/19 10:52 APTT 29.0 sec (21.0-31.4) 03/30/19 10:52 Sodium 140 mmol/L (136-145) 03/31/19 06:05 Potassium 3.8 mmol/L (3.5-5.1) 03/31/19 06:05 Chloride 106 mmol/L (98-107) 03/31/19 06:05 Carbon Dioxide 23.0 mmol/L (21.0-32.0) 03/31/19 06:05 Anion Gap 11.0 mmol/L (3-11) 03/31/19 06:05 BUN 9 mg/dL (7-18) 03/31/19 06:05 Creatinine 0.70 mg/dL (0.55-1.02) 03/31/19 06:05 Estimated GFR/1.73 m2 >= 60.00 (mL/min/1.73m2) 03/31/19 06:05 Glucose 117 mg/dL (74-106) H 03/31/19 06:05 Lactate 1.0 mmol/L (0.6-1.4) 03/30/19 13:25 Calcium 8.0 mg/dL (8.5-10.1) L 03/31/19 06:05 Magnesium 1.8 mg/dL (1.8-2.4) 03/31/19 06:05 Total Bilirubin 0.5 mg/dL (0.2-1.0) 03/31/19 06:05 AST 16 U/L (15-37) 03/31/19 06:05 ALT 14 U/L (14-59) 03/31/19 06:05 Alkaline Phosphatase 80 U/L (46-116) 03/31/19 06:05 C-Reactive Protein > 25.00 mg/dL (0.0-0.3) H 04/01/19 07:40 Total Protein 5.7 g/dL (6.4-8.2) L 03/31/19 06:05 Albumin 2.3 g/dL (3.4-5.0) L 03/31/19 06:05 Lipase 110 U/L (73-393) 03/30/19 10:52 TSH 0.68 uIU/mL (0.36-3.74) 03/31/19 06:05 Urine Color Yellow (Yellow) 03/30/19 10:40 Urine Clarity Clear (Clear) 03/30/19 10:40 Urine pH 6.5 (5-8) 03/30/19 10:40 Ur Specific [place] 1.020 (1.005-1.025) 03/30/19 10:40 Urine Protein Negative mg/dL (Negative) 03/30/19 10:40 Urine Ketones Negative mg/dL (Negative) 03/30/19 10:40 Urine Blood Trace-intact (Negative) H 03/30/19 10:40 Urine Nitrite Negative (Negative) 03/30/19 10:40 Urine Bilirubin Negative (Negative) 03/30/19 10:40 Urine Urobilinogen 0.2 EU/dL (Up TO 0.2) 03/30/19 10:40 Ur Leukocyte Esterase Trace (Negative) H 03/30/19 10:40 Urine RBC 3-5 HPF (0-2) H 03/30/19 10:40 Urine WBC 10-20 HPF (0-5) H 03/30/19 10:40 Ur Epithelial Cells Few HPF (Negative) 03/30/19 10:40 Urine Crystals Negative HPF (Negative) 03/30/19 10:40 Urine Bacteria Few HPF (Negative) 03/30/19 10:40 Urine Casts Negative LPF (Negative) 03/30/19 10:40 Urine Mucus Trace (Negative) 03/30/19 10:40 Ur Culture Indicated? C&s done as ordered 03/30/19 10:40 Urine Glucose Negative mg/dL (Negative) 03/30/19 10:40 Patient ABO/Rh O Positive 03/30/19 12:20 Antibody Screen Negative 03/30/19 12:20
[2019-04-02 07:01] LABS: Abs Immature Grans 0.07 k/cumm (0.0-0.09); Absolute Basophil Count 0.01 k/cumm (0.0-0.2); Absolute Eosinophil Count 0.17 k/cumm (0.0-0.7); Absolute Lymphocyte Count 1.92 k/cumm (1.2-3.4); Absolute Monocyte Count 0.65 k/cumm (0.11-0.7); Absolute Neutrophil Count 8.79 k/cumm (1.2-6.7); Basophils % 0.1; Eosinophils % 1.5; HCT 29.3 % (36.0-46.0); HGB 9.6 g/dL (12.0-15.5); Immature Grans % 0.6 %; Lymphocytes % 16.5; Mean Corp. HGB Concentration 32.8 g/dL (32.0-36.0); Mean Corpuscular Hemoglobin 31.4 pg (27.0-33.0); Mean Corpuscular Volume 95.8 fL (80-95); Mean Platelet Volume 9.7 fL (8.0-11.0); Monocytes % 5.6; Neutrophils % 75.7; Platelet Count 245 x1000/uL (130-400); RBC 3.06 m/cumm (4.00-5.20); RBC Distribution Width 13.3 % (11.7-14.6); White Blood Cell Count 11.61 k/cumm (4.4-10.8)
[2019-04-02 07:19] LABS: Anion Gap 7.4 mmol/L (3-11); BUN 6 mg/dL (7-18); C-Reactive Protein 18.23 mg/dL (0.0-0.3); CO2 25.6 mmol/L (21.0-32.0); CREATININE 0.72 mg/dL (0.55-1.02); Chloride 110 mmol/L (98-107); Glucose 87 mg/dL (74-106); Magnesium 1.7 mg/dL (1.8-2.4); Sodium 143 mmol/L (136-145)
[2019-04-02 07:40] VITALS: BP 140/70; PULSE 66; RESP 17; TEMP 36.8; O2SAT 96
[2019-04-02] MEDS: methIMAzole 5 MG TAB PO (08:30)
[2019-04-02] MEDS: Metoprolol CR 50 MG TABCR PO ×2 (08:30→20:57)
[2019-04-02] MEDS: Simethicone 80 MG CHEW PO ×4 (08:31→21:07)
[2019-04-02] MEDS: Pantoprazole 40 MG VIAL IVP (08:31)
[2019-04-02] MEDS: Normal Saline Flush 10 ML SYR IVP ×3 (08:32→14:21)
[2019-04-02] MEDS: Cetirizine 10 MG TAB PO (11:20)
[2019-04-02 15:00] LABS: Iron 19 ug/dL (50-170)
[2019-04-02] MEDS: MAGNESIUM SULFATE 1 GM/100 ML BAG IVPB (15:09)
[2019-04-02 15:13] LABS: Ferritin 247 ng/mL (8-252)
[2019-04-02 15:17] VITALS: BP 149/65; PULSE 68; RESP 16; TEMP 36.6; O2SAT 98
--- NOTE | 2019-04-02 16:05 | CHAPLAIN ---
Tameka said she is feeling much better and got some good rest last night. We met when she was in the ICU following surgery for a ruptured appendix.
[2019-04-02 16:06] VITALS: BP 135/74; PULSE 69; RESP 19; TEMP 37.3; O2SAT 97
[2019-04-02] MEDS: Enoxaparin 40 MG/0.4 ML SYR SC (18:40)
[2019-04-03 00:15] VITALS: BP 123/70; PULSE 76; RESP 18; TEMP 37.6; O2SAT 94
[2019-04-03] MEDS: Ketorolac 15 MG/ML VIAL IVP ×4 (01:40→19:49)
[2019-04-03] MEDS: ACETAMINOPHEN 1,000 MG/100 ML BTL 400 MG IVPB ×3 (05:05→22:53)
[2019-04-03] MEDS: PIPERACILLIN/TAZO 4.5 GM in Normal Saline 100 ML IVPB ×3 (05:40→22:53)
[2019-04-03 07:12] LABS: Abs Immature Grans 0.23 k/cumm (0.0-0.09); Absolute Eosinophil Count 0.22 k/cumm (0.0-0.7); Absolute Lymphocyte Count 2.04 k/cumm (1.2-3.4); Absolute Monocyte Count 0.75 k/cumm (0.11-0.7); Absolute Neutrophil Count 8.68 k/cumm (1.2-6.7); Basophils % 0.3; Eosinophils % 1.8; HCT 31.4 % (36.0-46.0); HGB 10.3 g/dL (12.0-15.5); Immature Grans % 1.9 %; Lymphocytes % 17.1; Mean Corp. HGB Concentration 32.8 g/dL (32.0-36.0); Mean Corpuscular Hemoglobin 31.3 pg (27.0-33.0); Mean Corpuscular Volume 95.4 fL (80-95); Mean Platelet Volume 9.4 fL (8.0-11.0); Monocytes % 6.3; Neutrophils % 72.6; Platelet Count 302 x1000/uL (130-400); RBC 3.29 m/cumm (4.00-5.20); RBC Distribution Width 13.5 % (11.7-14.6); White Blood Cell Count 11.95 k/cumm (4.4-10.8)
[2019-04-03 07:24] LABS: Absolute Basophil Count 0.04 k/cumm (0.0-0.2)
[2019-04-03 07:40] LABS: Diff Comment Agrees w/ Instrument; RBC Morphology Normal
[2019-04-03 07:43] VITALS: BP 143/69; PULSE 75; RESP 22; TEMP 37.1; O2SAT 96
[2019-04-03 08:39] LABS: C-Reactive Protein 14.06 mg/dL (0.0-0.3)
[2019-04-03] MEDS: Normal Saline Flush 10 ML SYR IVP ×2 (08:58→14:46)
[2019-04-03] MEDS: Pantoprazole 40 MG VIAL IVP (08:58)
[2019-04-03] MEDS: Spironolactone 25 MG TAB PO (08:59)
[2019-04-03] MEDS: Simethicone 80 MG CHEW PO ×4 (08:59→22:55)
[2019-04-03] MEDS: methIMAzole 5 MG TAB PO (08:59)
[2019-04-03] MEDS: Metoprolol CR 50 MG TABCR PO (09:00)
[2019-04-03] MEDS: Cetirizine 10 MG TAB PO (09:00)
--- NOTE | 2019-04-03 09:18 | PGE_ITS ---
Date of Service Date of service: 04/03/19 Time of Service: 09:19 Assessment and Plan Assessment and plan (1) Acute perforated appendicitis: Status: Acute Assessment and plan: cont IV abx- 7 days in total. supportive care/walk probiotics try bentyl for cramps doubt abscess at this time hopefully d/c in am (2) Hypertension: Status: Chronic Qualifiers: Hypertension type: essential hypertension Qualified Code(s): I10 - Essential (primary) hypertension (3) Graves disease: Status: Chronic Subjective Subjective Interval history since last seen: Pt drain got pulled on last night- it won't keep suction and is leaking around the drain. no headaches. No CP or SOB. no productive cough. no dysuria. no leg pain or swelling. She id feeling nauseated and bloated today. She had a BM, but is not passing gas this afternoon. no bleeding. She has good BS. incisions are c/d/i. Exam Const General: cooperative, healthy appearing, comfortable, no acute distress, well developed and well groomed Nutritional Appearance: average body habitus and well nourished Orientation: alert, awake and oriented x3 HENMT Head: normal to inspection, normocephalic and atraumatic Ears: hearing grossly normal bilaterally and external ears normal General nose exam: external nose normal Face and sinus: normal facial exam and sinuses nontender Mouth: oral mucosae normal, lip normal, tongue normal and moist mucous membranes Teeth and gingiva: dentition normal Eyes General: appearance normal, both eyes and all related structures Conjunctivae: conjunctivae normal Sclera: sclerae normal Pupils: PERRL Neck Neck: normal visual inspection and full ROM Chest Chest: normal inspection of the chest Resp Effort & Inspection: normal respiratory effort, able to speak in complete sentences, no cough, no nasal flaring, not tachypneic and no use of accessory muscles Auscultation: clear to auscultation bilaterally, no rales, no rhonchi and no wheezes Cardio Jugular venous pressure: no JVD Rate: regular rate Rhythm: regular rhythm GI Inspection: normal to inspection, no edema and non-distended Palpation: soft, no masses, tender (minimal ) in the RLQ and No ascites Auscultation: normal bowel sounds Other: her KVNG got pulled on last pm and is out. It is only draining serous- and it was removed. Skin General skin exam: no rashes or lesions noted Trauma: no lacerations or abrasions Neuro General: alert, oriented x3, oriented, gait normal, moves all extremities, no focal motor deficits and CN's II-XI intact bilaterally Cognition: normal cognition Speech: speech normal Gait: normal gait Motor: muscle tone normal throughout Extrem General: normal to inspection, full ROM and no clubbing, cyanosis or edema Psych Appearance: grossly normal and well kempt Mental Status: mental status grossly normal Speech and Movement: speech and movement normal Affect: normal affect Objective Objective Clinical Data: Abnormal lab results 04/02/19 04/03/19 04/03/19 Range/Units 06:45 06:56 06:56 WBC 11.95 H (4.4-10.8) k/cumm RBC 3.29 L (4.00-5.20) m/cumm Hgb 10.3 L (12.0-15.5) g/dL Hct 31.4 L (36.0-46.0) % MCV 95.4 H (80-95) fL Absolute Neutrophils 8.68 H (1.2-6.7) k/cumm Absolute Monocytes 0.75 H (0.11-0.7) k/cumm Iron 19 L (50-170) ug/dL C-Reactive Protein 14.06 H (0.0-0.3) mg/dL Vital Signs Temperature 37.1 C 04/03/19 07:43 Temperature Source Tympanic 04/03/19 07:43 Pulse 75 04/03/19 07:43 Pulse Rhythm Regular 04/03/19 00:15 Pulse 74 03/31/19 21:13 Respiratory Rate 22 04/03/19 07:43 Respiratory Effort Non-Labored 04/03/19 00:15 Respiratory Depth Normal 04/03/19 00:15 Respiratory Pattern Normal 04/03/19 00:15 Blood Pressure 143/69 H 04/03/19 07:43 Blood Pressure Mean 57 03/31/19 21:13 Blood Pressure Position Sitting 03/31/19 19:30 Pulse Oximetry 96 04/03/19 07:43 Oxygen Delivery Method Room Air 04/03/19 07:43 Oxygen Flow Rate 0 04/03/19 07:43 Pain Level 6 04/03/19 07:43 Comment 04/02/19 00:41 Intake & Output 04/02/19 04/02/19 04/03/19 11:59 23:59 11:59 Intake Total 1553.333 / 4213.333 2660 / 4213.333 1110 / 1110 Output Total 730 / 2215 1485 / 2215 1999 Balance 823.333 / 7292.681 2784 / 1997.333 -890 / -890 Weight 110.2 kg 111.1 kg Intake: IV 1193.333 / 1513.333 320 / 1513.333 210 / 210 Oral 360 / 2700 2340 / 2700 900 / 900 Output: Drainage 30 35 / 65 Left Lower Abdomen 35 / 65 Urine 700 / 2150 1450 / 2150 1999 Other: Urine Color Yellow Yellow Yellow Urine Appearance Clear Clear Clear Urine Odor Normal Normal Comment missed the hat Stool Size Moderate Small Stool Characteristics Liquid Liquid Voiding Methods Toilet Toilet Toilet Laboratory Results WBC 11.95 k/cumm (4.4-10.8) H 04/03/19 06:56 RBC 3.29 m/cumm (4.00-5.20) L 04/03/19 06:56 Hgb 10.3 g/dL (12.0-15.5) L 04/03/19 06:56 Hct 31.4 % (36.0-46.0) L 04/03/19 06:56 MCV 95.4 fL (80-95) H 04/03/19 06:56 MCH 31.3 pg (27.0-33.0) 04/03/19 06:56 MCHC 32.8 g/dL (32.0-36.0) 04/03/19 06:56 RDW 13.5 % (11.7-14.6) 04/03/19 06:56 Plt Count 302 x1000/uL (130-400) 04/03/19 06:56 MPV 9.4 fL (8.0-11.0) 04/03/19 06:56 Immature Gran % 1.9 % 04/03/19 06:56 Neutrophils % 72.6 04/03/19 06:56 Lymphocytes % 17.1 04/03/19 06:56 Monocytes % 6.3 04/03/19 06:56 Eosinophils % 1.8 04/03/19 06:56 Basophils % 0.3 04/03/19 06:56 Absolute Neutrophils 8.68 k/cumm (1.2-6.7) H 04/03/19 06:56 Absolute Lymphocytes 2.04 k/cumm (1.2-3.4) 04/03/19 06:56 Absolute Monocytes 0.75 k/cumm (0.11-0.7) H 04/03/19 06:56 Absolute Eosinophils 0.22 k/cumm (0.0-0.7) 04/03/19 06:56 Absolute Basophils 0.04 k/cumm (0.0-0.2) 04/03/19 06:56 Differential Comment Agrees w/ instrument 04/03/19 06:56 RBC Morphology Normal 04/03/19 06:56 PT 10.0 sec (9.3-11.0) 03/30/19 10:52 INR 1.0 (0.9-1.1) 03/30/19 10:52 APTT 29.0 sec (21.0-31.4) 03/30/19 10:52 Sodium 143 mmol/L (136-145) 04/02/19 06:45 Potassium 3.0 mmol/L (3.5-5.1) L 04/02/19 06:45 Chloride 110 mmol/L (98-107) H 04/02/19 06:45 Carbon Dioxide 25.6 mmol/L (21.0-32.0) 04/02/19 06:45 Anion Gap 7.4 mmol/L (3-11) 04/02/19 06:45 BUN 6 mg/dL (7-18) L 04/02/19 06:45 Creatinine 0.72 mg/dL (0.55-1.02) 04/02/19 06:45 Estimated GFR/1.73 m2 >= 60.00 (mL/min/1.73m2) 04/02/19 06:45 Glucose 87 mg/dL (74-106) 04/02/19 06:45 Lactate 1.0 mmol/L (0.6-1.4) 03/30/19 13:25 Calcium 8.0 mg/dL (8.5-10.1) L 04/02/19 06:45 Magnesium 1.7 mg/dL (1.8-2.4) L 04/02/19 06:45 Iron 19 ug/dL (50-170) L 04/02/19 06:45 Ferritin 247 ng/mL (8-252) 04/02/19 06:45 Total Bilirubin 0.5 mg/dL (0.2-1.0) 03/31/19 06:05 AST 16 U/L (15-37) 03/31/19 06:05 ALT 14 U/L (14-59) 03/31/19 06:05 Alkaline Phosphatase 80 U/L (46-116) 03/31/19 06:05 C-Reactive Protein 14.06 mg/dL (0.0-0.3) H 04/03/19 06:56 Total Protein 5.7 g/dL (6.4-8.2) L 03/31/19 06:05 Albumin 2.3 g/dL (3.4-5.0) L 03/31/19 06:05 Lipase 110 U/L (73-393) 03/30/19 10:52 TSH 0.68 uIU/mL (0.36-3.74) 03/31/19 06:05 Urine Color Yellow (Yellow) 03/30/19 10:40 Urine Clarity Clear (Clear) 03/30/19 10:40 Urine pH 6.5 (5-8) 03/30/19 10:40 Ur Specific [place] 1.020 (1.005-1.025) 03/30/19 10:40 Urine Protein Negative mg/dL (Negative) 03/30/19 10:40 Urine Ketones Negative mg/dL (Negative) 03/30/19 10:40 Urine Blood Trace-intact (Negative) H 03/30/19 10:40 Urine Nitrite Negative (Negative) 03/30/19 10:40 Urine Bilirubin Negative (Negative) 03/30/19 10:40 Urine Urobilinogen 0.2 EU/dL (Up TO 0.2) 03/30/19 10:40 Ur Leukocyte Esterase Trace (Negative) H 03/30/19 10:40 Urine RBC 3-5 HPF (0-2) H 03/30/19 10:40 Urine WBC 10-20 HPF (0-5) H 03/30/19 10:40 Ur Epithelial Cells Few HPF (Negative) 03/30/19 10:40 Urine Crystals Negative HPF (Negative) 03/30/19 10:40 Urine Bacteria Few HPF (Negative) 03/30/19 10:40 Urine Casts Negative LPF (Negative) 03/30/19 10:40 Urine Mucus Trace (Negative) 03/30/19 10:40 Ur Culture Indicated? C&s done as ordered 03/30/19 10:40 Urine Glucose Negative mg/dL (Negative) 03/30/19 10:40 Patient ABO/Rh O Positive 03/30/19 12:20 Antibody Screen Negative 03/30/19 12:20
[2019-04-03 11:46] VITALS: BP 142/89; PULSE 79; RESP 24; TEMP 36.5; O2SAT 96
--- NOTE | 2019-04-03 14:43 | W.NUTRFU ---
Date of service: 04/03/19 Time of Service: 14:43 Nutritional Follow up NOTE: PO intake on soft diet meeting 100% nutrient and fluid needs at this time. Not considered at nutritional risk. Time Spent in Nutritional Counseling and Treatment: 0 time spent face to face
--- NOTE | 2019-04-03 16:41 | PHA.ADMREV ---
Pharmacy Clinical Review - Admission Clinical Review (Last Reviewed 03/31/19 @ 08:08 by BRADLY Taylor) Leukocytosis (Acute) Acute perforated appendicitis (Acute) Sepsis (Acute) DVT prophylaxis (Acute) Acute appendicitis (Acute) dye Allergy (Uncoded 03/30/19 13:47) breathing issues Height 5 ft 6 in Weight 111.1 kg - Renal Dosing Renal Dosing: BUN 6 mg/dL (7-18) L 04/02/19 06:45 Creatinine 0.72 mg/dL (0.55-1.02) 04/02/19 06:45 Medications needing adjustments: Reviewed (Crcl ~101 mL/min using adjusted body weight, current meds okay) - Anticoagulation Anticoagulation: Hgb 10.3 g/dL (12.0-15.5) L 04/03/19 06:56 Hct 31.4 % (36.0-46.0) L 04/03/19 06:56 Plt Count 302 x1000/uL (130-400) 04/03/19 06:56 INR 1.0 (0.9-1.1) 03/30/19 10:52 Creatinine 0.72 mg/dL (0.55-1.02) 04/02/19 06:45 DVT Prohphylaxis: Reviewed Medications: Enoxaparin Therapeutic Anticoagulation: N/A - Opiate Usage Evaluate Pain Scale/Pains Meds: Reviewed Scheduled Bowel Reg ordered if on Opiates?: No - Relevant Labs Sodium 143 mmol/L (136-145) 04/02/19 06:45 Potassium 3.0 mmol/L (3.5-5.1) L 04/02/19 06:45 Chloride 110 mmol/L (98-107) H 04/02/19 06:45 Magnesium 1.7 mg/dL (1.8-2.4) L 04/02/19 06:45 C-Reactive Protein 14.06 mg/dL (0.0-0.3) H 04/03/19 06:56 Electrolytes, C-Reactive P, ESR: Intervened Action if intervened: magnesium replacement was given yesterday, I talked to MD about potassium replacement today - DM Control DM Control: Glucose 87 mg/dL (74-106) 04/02/19 06:45 Insulin Dosing: N/A - Heart Failure/[place] EF%, JOSE MIGUEL's, B-Blockers, Diuretics: Reviewed (metoprolol, spironolactone) - BP Control BP Control: Blood Pressure 142/89 Blood Pressure 143/69 If elevated: N/A - QTc Review If Elevated: N/A - IV to PO Switch IV Medications: N/A - Home Meds Home Med List reviewed: Reviewed Relevent Home Meds Not ordered & why?: ascorbic acid (prn), cholecaciferol, multivitamin, vitamin A/C/E, vitamin B - Current meds Current Medication Order Review: Intervened (metoprolol tartrate listed on home med list, but metoprolol succinate ordered here. looking into this) - Comments Comments/Follow Ups: IV K+ replacement ordered today, watch levels tomorrow; watch for change from IV to PO meds (acetaminophen, ondasetron, pantoprazole).
--- NOTE | 2019-04-03 17:45 | PDOC.CMPRO ---
- If Service Date Differs Date of service: 04/03/19 Time of Service: 17:45 Care Management Progress Note S/O:Tameka is ambulating in the halls she has been afebrile, her c-reactive protein is tending down, she remains on Q8 hour abx. No other changes today, anticipate she will not need additional services at time of discharge and will resume [facility] supports. A:Tameka is a 64 year old female admitted with ruptured appendix status post lap appy P:Tameka will be discharged home when medically ready. CM will continue to assess for discharge needs and provide support discharge planning. She will resume [facility] supports. Tameka will be transported home via private car with family at time of discharge.
[2019-04-03] MEDS: Enoxaparin 40 MG/0.4 ML SYR SC (18:01)
[2019-04-03 18:06] VITALS: BP 125/73; PULSE 85; RESP 16; TEMP 38.2; O2SAT 98
[2019-04-03] MEDS: Dicyclomine 10 MG CAP PO (18:34)
[2019-04-03 19:20] VITALS: TEMP 37.9
[2019-04-03] MEDS: POTASSIUM CHLORIDE 20 MEQ/100 ML BAG 50 MEQ IVPB (19:40)
[2019-04-03] MEDS: Metoprolol 50 MG TAB PO (19:49)
[2019-04-04 00:46] VITALS: BP 149/81; PULSE 77; RESP 18; TEMP 36.6; O2SAT 94
[2019-04-04] MEDS: Ketorolac 15 MG/ML VIAL IVP ×2 (02:59→08:21)
[2019-04-04] MEDS: POTASSIUM CHLORIDE 20 MEQ/100 ML BAG 50 MEQ IVPB (03:07)
[2019-04-04 04:27] VITALS: BP 150/81; PULSE 77; RESP 18; TEMP 37.4; O2SAT 94
[2019-04-04] MEDS: ACETAMINOPHEN 1,000 MG/100 ML BTL 400 MG IVPB (06:35)
[2019-04-04] MEDS: PIPERACILLIN/TAZO 4.5 GM in Normal Saline 100 ML IVPB (07:10)
[2019-04-04 07:36] LABS: Abs Immature Grans 0.17 k/cumm (0.0-0.09); Absolute Monocyte Count 1.03 k/cumm (0.11-0.7); Absolute Neutrophil Count 8.25 k/cumm (1.2-6.7); Basophils % 0.3; Eosinophils % 1.7; HCT 30.8 % (36.0-46.0); Immature Grans % 1.4 %; Lymphocytes % 18.4; Mean Corp. HGB Concentration 32.5 g/dL (32.0-36.0); Mean Corpuscular Hemoglobin 30.9 pg (27.0-33.0); Mean Corpuscular Volume 95.1 fL (80-95); Mean Platelet Volume 9.5 fL (8.0-11.0); Monocytes % 8.7; Neutrophils % 69.5; Platelet Count 297 x1000/uL (130-400); RBC 3.24 m/cumm (4.00-5.20); RBC Distribution Width 13.6 % (11.7-14.6); White Blood Cell Count 11.87 k/cumm (4.4-10.8)
[2019-04-04 07:38] VITALS: BP 126/69; PULSE 78; RESP 16; TEMP 36.8; O2SAT 93
[2019-04-04 07:38] LABS: Absolute Basophil Count 0.04 k/cumm (0.0-0.2); Absolute Lymphocyte Count 2.18 k/cumm (1.2-3.4)
[2019-04-04] MEDS: Pantoprazole 40 MG VIAL IVP (08:18)
[2019-04-04] MEDS: Metoprolol 50 MG TAB PO (08:20)
[2019-04-04] MEDS: Normal Saline Flush 10 ML SYR IVP ×2 (08:20→13:42)
[2019-04-04] MEDS: Simethicone 80 MG CHEW PO ×2 (08:20→13:03)
[2019-04-04] MEDS: Cetirizine 10 MG TAB PO (08:21)
[2019-04-04] MEDS: Spironolactone 25 MG TAB PO (08:21)
[2019-04-04] MEDS: methIMAzole 5 MG TAB PO (08:21)
--- NOTE | 2019-04-04 08:37 | PDOC.CMDIS ---
- If Service Date Differs Date of service: 04/04/19 Time of Service: 08:37 LACE Index Scoring Tool - Questions: Length of Stay (in days): 4 - 6 Acuity (Admit via E.D.?): Yes E.D. Visits: 0 - Answers: Total Score: 7 Risk of Readmission: Low Risk Care Management Discharge Reason for Hospitalization: Ruptured Appendix Patient/Family Education Needs: Tameka is being discharge home with new home health services for nursing and OT. She will have meals on wheels which CM has coordianted and support from her son. Family will provide transportation home at time of discharge. CM contacted Home Health and provided referral. Services Needed at Discharge: Home Health Care Services
[2019-04-04 09:10] LABS: Anisocytosis 1+
[2019-04-04 09:11] LABS: Hypochromasia 1+; Polychromasia Present
--- NOTE | 2019-04-04 11:02 | W.PM.PROGNOT ---
Date of Service Date of service: 04/04/19 Time of Service: 11:02 Assessment and Plan Assessment and plan (1) Acute perforated appendicitis: Status: Acute Assessment and plan: d/c home today Keep an ice bag on the incision. 20 minutes on and 20 minutes off. Ice keeps the swelling down and swelling causes pain. Make sure you wrap the ice pack in a towel and don't apply directly to the skin. -No driving x1 week or of you are taking pain medications. -If you have merissa or sutures in place, they will be removed at your clinic appointment in 7-10 days. -Do Not remove any steri tapes (white tapes) that cover the incision. If you have steri-tapes on your incision, do not use antibacterial ointment. -Follow-up with Dr. Beltre in 1 week. -soft diet: No beef/pork raw vegetables x1 -week. Cooked vegetables are fine -no straining to move bowels -pain meds are very constipating: if you do not move your bowels daily take a dose of OTC milk of magnesia -It is ok to shower. No bathe, soaking, swimming or hot tubs -Keep wound clean and dry. Wash incision with soap and water daily. Pat dry, don't rub. -If you do not have steri-tapes on your incision, than keep the wound covered with a gauze and antibacterial ointment. -Protein supplements daily. You may find that your appetite is smaller. Eat 3-6 small meals throughout the day. It is important to drink lots of water after surgery, 6-10 glasses a day. -If you were given an incentive spirometry (\breathing wage and hour investigator\[id number]), continue to do this 10x/hour while awake. -We do want you up walking, at least 5-6 times per day. This is very important to prevent pneumonia and blood clots. You can climb stairs, take them slowly. -No lifting over 5 pounds. This is very important to avoid developing a hernia in your incision. -You may find that you are very tired after surgery- this is normal. -please do not smoke for a minimum of 72 hours after surgery. see d/c note rx placed referral for home health replaced. f/u sunday (2) Hypertension: Status: Chronic Qualifiers: Hypertension type: essential hypertension Qualified Code(s): I10 - Essential (primary) hypertension (3) Graves disease: Status: Chronic Subjective Subjective Interval history since last seen: pt had low K yest so we did K riders. She c/o burning in her arm and was up all night. pt was up walking w/ walker. She is able to eat. She notes her appetite is very small- she is assured that this is normal. She is having BM but liquids. She is taking probiotics. She c/o of mild pain. She notes the bentyl has helped w/ cramping and bloating. Exam Const General: cooperative, healthy appearing, comfortable, no acute distress, well developed and well groomed Nutritional Appearance: average body habitus and well nourished Orientation: alert, awake and oriented x3 HENMT Head: normal to inspection, normocephalic and atraumatic Ears: hearing grossly normal bilaterally and external ears normal General nose exam: external nose normal Face and sinus: normal facial exam and sinuses nontender Mouth: oral mucosae normal, lip normal, tongue normal and moist mucous membranes Teeth and gingiva: dentition normal Eyes General: appearance normal, both eyes and all related structures Conjunctivae: conjunctivae normal Sclera: sclerae normal Pupils: PERRL Neck Neck: normal visual inspection and full ROM Chest Chest: normal inspection of the chest Resp Effort & Inspection: normal respiratory effort, able to speak in complete sentences, no cough, no nasal flaring, not tachypneic and no use of accessory muscles Auscultation: clear to auscultation bilaterally, no rales, no rhonchi and no wheezes Cardio Jugular venous pressure: no JVD Rate: regular rate Rhythm: regular rhythm GI Inspection: normal to inspection, no edema and non-distended Palpation: soft, no masses, tender (minimal on right side) and No ascites Auscultation: normal bowel sounds Other: good BS. incision c/d/i. slt bruising. drain site is sealed over. Skin General skin exam: no rashes or lesions noted Trauma: no lacerations or abrasions Neuro General: alert, oriented x3, oriented, gait normal, moves all extremities, no focal motor deficits and CN's II-XI intact bilaterally Cognition: normal cognition Speech: speech normal Gait: normal gait Motor: muscle tone normal throughout Extrem General: normal to inspection, full ROM and no clubbing, cyanosis or edema Psych Appearance: grossly normal and well kempt Mental Status: mental status grossly normal Speech and Movement: speech and movement normal Affect: normal affect Objective Objective Clinical Data: Abnormal lab results 04/04/19 04/04/19 Range/Units 06:45 06:45 WBC 11.87 H (4.4-10.8) k/cumm RBC 3.24 L (4.00-5.20) m/cumm Hgb 10.0 L (12.0-15.5) g/dL Hct 30.8 L (36.0-46.0) % MCV 95.1 H (80-95) fL Absolute Neutrophils 8.25 H (1.2-6.7) k/cumm Absolute Monocytes 1.03 H (0.11-0.7) k/cumm C-Reactive Protein 11.20 H (0.0-0.3) mg/dL Vital Signs Temperature 36.8 C 04/04/19 07:38 Temperature Source Temporal Artery Scan 04/04/19 07:38 Pulse 78 04/04/19 07:38 Pulse Rhythm Regular 04/03/19 23:00 Pulse 74 03/31/19 21:13 Respiratory Rate 16 04/04/19 07:38 Respiratory Effort Non-Labored 04/03/19 23:00 Respiratory Depth Normal 04/03/19 23:00 Respiratory Pattern Normal 04/03/19 23:00 Blood Pressure 126/69 04/04/19 07:38 Blood Pressure Mean 57 03/31/19 21:13 Blood Pressure Position Sitting 03/31/19 19:30 Pulse Oximetry 93 L 04/04/19 07:38 Oxygen Delivery Method Room Air 04/04/19 07:38 Oxygen Flow Rate 0 04/04/19 07:38 Pain Level 5 04/04/19 08:21 Comment 04/02/19 00:41 Intake & Output 04/03/19 04/03/19 04/04/19 11:59 23:59 11:59 Intake Total 1210 / 2440 1230 / 2440 200 / 200 Output Total 2900 / 4600 1700 / 4600 1900 / 1900 Balance -1690 / -2160 -470 / -2160 -1700 / -1700 Weight 111.1 kg 110.2 kg Intake: IV 310 / 750 440 / 750 200 / 200 Oral 900 / 1690 790 / 1690 Output: Urine 2900 / 4600 1700 / 4600 1900 / 1900 Other: Urine Color Yellow Yellow Yellow Urine Appearance Clear Clear Clear Urine Odor None None Stool Size Small Small Stool Characteristics Liquid Soft Formed Voiding Methods Toilet Toilet Toilet Laboratory Results WBC 11.87 k/cumm (4.4-10.8) H 04/04/19 06:45 RBC 3.24 m/cumm (4.00-5.20) L 04/04/19 06:45 Hgb 10.0 g/dL (12.0-15.5) L 04/04/19 06:45 Hct 30.8 % (36.0-46.0) L 04/04/19 06:45 MCV 95.1 fL (80-95) H 04/04/19 06:45 MCH 30.9 pg (27.0-33.0) 04/04/19 06:45 MCHC 32.5 g/dL (32.0-36.0) 04/04/19 06:45 RDW 13.6 % (11.7-14.6) 04/04/19 06:45 Plt Count 297 x1000/uL (130-400) 04/04/19 06:45 MPV 9.5 fL (8.0-11.0) 04/04/19 06:45 Immature Gran % 1.4 % 04/04/19 06:45 Neutrophils % 69.5 04/04/19 06:45 Lymphocytes % 18.4 04/04/19 06:45 Monocytes % 8.7 04/04/19 06:45 Eosinophils % 1.7 04/04/19 06:45 Basophils % 0.3 04/04/19 06:45 Absolute Neutrophils 8.25 k/cumm (1.2-6.7) H 04/04/19 06:45 Absolute Lymphocytes 2.18 k/cumm (1.2-3.4) 04/04/19 06:45 Absolute Monocytes 1.03 k/cumm (0.11-0.7) H 04/04/19 06:45 Absolute Eosinophils 0.20 k/cumm (0.0-0.7) 04/04/19 06:45 Absolute Basophils 0.04 k/cumm (0.0-0.2) 04/04/19 06:45 Differential Comment Agrees w/ instrument 04/03/19 06:56 RBC Morphology Normal 04/03/19 06:56 Polychromasia Present 04/04/19 06:45 Hypochromasia 1+ 04/04/19 06:45 Anisocytosis 1+ 04/04/19 06:45 PT 10.0 sec (9.3-11.0) 03/30/19 10:52 INR 1.0 (0.9-1.1) 03/30/19 10:52 APTT 29.0 sec (21.0-31.4) 03/30/19 10:52 Sodium 143 mmol/L (136-145) 04/02/19 06:45 Potassium 3.0 mmol/L (3.5-5.1) L 04/02/19 06:45 Chloride 110 mmol/L (98-107) H 04/02/19 06:45 Carbon Dioxide 25.6 mmol/L (21.0-32.0) 04/02/19 06:45 Anion Gap 7.4 mmol/L (3-11) 04/02/19 06:45 BUN 6 mg/dL (7-18) L 04/02/19 06:45 Creatinine 0.72 mg/dL (0.55-1.02) 04/02/19 06:45 Estimated GFR/1.73 m2 >= 60.00 (mL/min/1.73m2) 04/02/19 06:45 Glucose 87 mg/dL (74-106) 04/02/19 06:45 Lactate 1.0 mmol/L (0.6-1.4) 03/30/19 13:25 Calcium 8.0 mg/dL (8.5-10.1) L 04/02/19 06:45 Magnesium 1.7 mg/dL (1.8-2.4) L 04/02/19 06:45 Iron 19 ug/dL (50-170) L 04/02/19 06:45 Ferritin 247 ng/mL (8-252) 04/02/19 06:45 Total Bilirubin 0.5 mg/dL (0.2-1.0) 03/31/19 06:05 AST 16 U/L (15-37) 03/31/19 06:05 ALT 14 U/L (14-59) 03/31/19 06:05 Alkaline Phosphatase 80 U/L (46-116) 03/31/19 06:05 C-Reactive Protein 11.20 mg/dL (0.0-0.3) H 04/04/19 06:45 Total Protein 5.7 g/dL (6.4-8.2) L 03/31/19 06:05 Albumin 2.3 g/dL (3.4-5.0) L 03/31/19 06:05 Lipase 110 U/L (73-393) 03/30/19 10:52 TSH 0.68 uIU/mL (0.36-3.74) 03/31/19 06:05 Urine Color Yellow (Yellow) 03/30/19 10:40 Urine Clarity Clear (Clear) 03/30/19 10:40 Urine pH 6.5 (5-8) 03/30/19 10:40 Ur Specific [place] 1.020 (1.005-1.025) 03/30/19 10:40 Urine Protein Negative mg/dL (Negative) 03/30/19 10:40 Urine Ketones Negative mg/dL (Negative) 03/30/19 10:40 Urine Blood Trace-intact (Negative) H 03/30/19 10:40 Urine Nitrite Negative (Negative) 03/30/19 10:40 Urine Bilirubin Negative (Negative) 03/30/19 10:40 Urine Urobilinogen 0.2 EU/dL (Up TO 0.2) 03/30/19 10:40 Ur Leukocyte Esterase Trace (Negative) H 03/30/19 10:40 Urine RBC 3-5 HPF (0-2) H 03/30/19 10:40 Urine WBC 10-20 HPF (0-5) H 03/30/19 10:40 Ur Epithelial Cells Few HPF (Negative) 03/30/19 10:40 Urine Crystals Negative HPF (Negative) 03/30/19 10:40 Urine Bacteria Few HPF (Negative) 03/30/19 10:40 Urine Casts Negative LPF (Negative) 03/30/19 10:40 Urine Mucus Trace (Negative) 03/30/19 10:40 Ur Culture Indicated? C&s done as ordered 03/30/19 10:40 Urine Glucose Negative mg/dL (Negative) 03/30/19 10:40 Patient ABO/Rh O Positive 03/30/19 12:20 Antibody Screen Negative 03/30/19 12:20
--- NOTE | 2019-04-04 11:03 | PDOC.HHF2F_ITS ---
Home Health Certification Home Health Certification: 1. Encounter Date and Reason I certify that ASH CALDERA was seen by Mansi Beltre on 04/04/19 and that I had a [id number] encounter with this patient that meets the physician face to face encounter requirements. 2. Clinical Findings Supporting Skilled Need and Homebound Status I certify that home health services are medically necessary, include either intermittent intermediate and/or physical/speech therapy, and that this pat ient is homebound in that absences from the home require considerable and taxing effort and are infrequent or of short duration, or are attributable to the need to receive medical care. [X] (a) Attached documentation from encounter provides clinical findings supporting skilled need and homebound status (including what assistance patient requires to leave the home). The encounter with the patient was in whole, or in part, for the following medical condition, which is the primary reason for home health care: RUPTURED APPENDIX Senior Living: Physical Therapy: and home OT. for strength/weakness after surgery Speech Therapy: Homebound: 3. Certification and Authentication I certify that I composed the above information based on my clinical judgment relating to this patient's medical condition and, if applicable, clinical findings communicated to me by the NPP or inpatient physician who performed the Home Health Referral. All further orders will be obtained through ([facility] - PCP)
[2019-04-04 11:40] VITALS: BP 140/83; PULSE 79; RESP 18; TEMP 37.3; O2SAT 95
--- NOTE | 2019-04-04 12:36 | W.PM.DSUDISC ---
Discharge Plan Disposition Patient Disposition: HOME Condition: Stable Discharge Details Chief Complaint: Abd Prob Clinical Impression: Acute appendicitis Reason For Visit: RUPTURED APPENDIX Admit Date/Time: 03/30/19 15:43 Admit Provider: Mansi Beltre Attending Provider: Mansi Beltre Primary Care Provider: Wilma Spears ED Provider: Ivet Crandall Home Meds and New Rx's Prescriptions: New cetirizine 10 mg Tablet 10 mg PO DAILY Qty: 30 RF: 0 dicyclomine 10 mg Capsule 10 mg PO QID PRN PRN (Reason: bloating/cramps) Qty: 30 RF: 0 Floranex 100 million cell Granules In Packet 1 g PO BID 30 Days Qty: 60 RF: 0 tramadol 50 mg tablet 50 mg PO Q6H PRN (Reason: pain) Qty: 20 RF: 0 amoxicillin-pot clavulanate [Augmentin] 875-125 mg tablet 1 tab PO Q12H Qty: 4 RF: 0 Continued methimazole 5 MG tablet 5 mg PO DAILY RF: 0 multivitamin [Daily Multi-Vitamin] 1 EACH tablet 1 ea PO DAILY RF: 0 spironolactone 25 MG tablet 25 mg PO DAILY RF: 0 Emergen-C 1,000 MG powder effervescent in packet 1,000 mg PO PRN RF: 0 metoprolol tartrate [Lopressor] 100 mg Tablet 50 mg PO BID RF: 0 vitamin B complex Capsule 1 cap PO DAILY RF: 0 vitamin A-vitamin C-vitamin E Tablet 1 tab PO DAILY RF: 0 cholecalciferol (vitamin D3) [Vitamin D3] 25 mcg (1,000 unit) Tablet 1,000 unit PO DAILY RF: 0 Discharge Instructions Additional Instructions: Keep an ice bag on the incision. 20 minutes on and 20 minutes off. Ice keeps the swelling down and swelling causes pain. Make sure you wrap the ice pack in a towel and don't apply directly to the skin. -No driving x1 week or of you are taking pain medications. -If you have merissa or sutures in place, they will be removed at your clinic appointment. -F/u appt w/ Dr. Beltre on Sunday: -Follow-up with Dr. Beltre in 1 week. -soft diet: No beef/pork raw vegetables x1 -week. Cooked vegetables are fine -no straining to move bowels -pain meds are very constipating: if you do not move your bowels daily take a dose of OTC milk of magnesia -It is ok to shower. No bathe, soaking, swimming or hot tubs -Keep wound clean and dry. Wash incision with soap and water daily. Pat dry, don't rub. -If you do not have steri-tapes on your incision, than keep the wound covered with a gauze and antibacterial ointment. -Protein supplements daily. You may find that your appetite is smaller. Eat 3-6 small meals throughout the day. It is important to drink lots of water after surgery, 6-10 glasses a day. -If you were given an incentive spirometry (\breathing exercise), continue to do this 10x/hour while awake. -We do want you up walking, at least 5-6 times per day. This is very important to prevent pneumonia and blood clots. You can climb stairs, take them slowly. -No lifting over 5 pounds. This is very important to avoid developing a hernia in your incision. -You may find that you are very tired after surgery- this is normal. -please do not smoke for a minimum of 72 hours after surgery. -start antibiotics tonight and finish all Activity:: walk 4-5x per day. no lifting over 10#'s Equipment/Supplies:: No Equipment Needed Diet:: As Tolerated Discharge Orders Discharge Orders: Discharge Order (Routine); Ordered 04/04/19 Ordered By: Mansi Beltre DS: Diagnosis Discharge Diagnosis (1) Acute perforated appendicitis: Status: Acute (2) Hypertension: Status: Chronic (3) Graves disease: Status: Chronic
[2019-04-04] MEDS: Dicyclomine 10 MG CAP PO (14:47)
[2019-04-04] MEDS: traMADol 50 MG TAB PO (15:53)
== END 2019-04-04 16:05 | disposition home or self-care (01) | DRG 338 ==
LOC: ER 13:36 → DSU 13:39 → ICU 16:17 → MS 04-01 00:03
PROVIDERS: Internal Medicine; Surgery; Admitting Provider Surgery; Emergency Provider Physician Assistant; PCP Nurse Practitioner Family; Visit Provider Surgery
PROC: 0DTJ4ZZ Resection of Appendix, Percutaneous Endoscopic Approach (ICD-10-PCS; CPT 44970; principal; 2019-03-30 13:00)
DX: K35.32 Acute appendicitis with perforation, localized peritonitis, and gangrene, without abscess (principal); A41.9 Sepsis, unspecified organism; K38.1 Appendicular concretions; K66.0 Peritoneal adhesions (postprocedural) (postinfection); I10 Essential (primary) hypertension; K58.9 Irritable bowel syndrome, unspecified; Z80.0 Family history of malignant neoplasm of digestive organs; E05.00 Thyrotoxicosis with diffuse goiter without thyrotoxic crisis or storm; E66.9 Obesity, unspecified; Z68.39 Body mass index [BMI] 39.0-39.9, adult; D72.829 Elevated white blood cell count, unspecified; R79.89 Other specified abnormal findings of blood chemistry
CPT/HCPCS: 44970; 36415; 80048; 80053; 83690; 86850; 86900; 86901; 87040; 96361; 96365; 96375; 99223; 99253; 99285; J1650; NC; 74176; 81003; 81015; 82728; 83540; 83605; 83735; 84443; 85025; 85610; 85730; 86140; 87086; 88304; 99222; J0131; J1100; J1200; J1885; J2001; J2250; J2405; J2543; J3010; J3475; J3480; J3490

== ENCOUNTER 2019-04-09 14:54 | Outpatient (CLI) | payer OTHER, MEDICAID, SELFPAY ==
[2019-04-09 15:33] LABS: Absolute Basophil Count 0.02 k/cumm (0.0-0.2); Basophils % 0.1; Eosinophils % 0.4; HCT 31.5 % (36.0-46.0); HGB 10.3 g/dL (12.0-15.5); Immature Grans % 0.5 %; Lymphocytes % 6.6; Mean Corp. HGB Concentration 32.7 g/dL (32.0-36.0); Mean Corpuscular Volume 94.9 fL (80-95); Monocytes % 6.7; Neutrophils % 85.7; RBC 3.32 m/cumm (4.00-5.20); RBC Distribution Width 13.2 % (11.7-14.6); White Blood Cell Count 21.97 k/cumm (4.4-10.8)
[2019-04-09 15:54] LABS: Absolute Eosinophil Count 0.09 k/cumm (0.0-0.7); Absolute Lymphocyte Count 1.45 k/cumm (1.2-3.4); Absolute Monocyte Count 1.47 k/cumm (0.11-0.7); Absolute Neutrophil Count 18.83 k/cumm (1.2-6.7)
[2019-04-09 15:55] LABS: Platelet Count 662 x1000/uL (130-400)
[2019-04-09 16:22] LABS: C-Reactive Protein 13.92 mg/dL (0.0-0.3)
== END 2019-04-09 15:14 ==
PROVIDERS: PCP Nurse Practitioner Family; Visit Provider Surgery
DX: K35.32 Acute appendicitis with perforation, localized peritonitis, and gangrene, without abscess (principal); A41.9 Sepsis, unspecified organism
CPT/HCPCS: 36415; 85025; 86140

== ENCOUNTER 2019-04-09 16:22 | Emergency (ER) | payer OTHER, MEDICAID, SELFPAY ==
--- NOTE | 2019-04-09 | DI.US_ITS ---
EXAM: US PELVIS LIMITED CLINICAL HISTORY: s/p ruptured appy. increasing WBC; r/o abscess. TECHNIQUE: Transabdominal and transvaginal pelvic ultrasound was performed using standard protocol. COMPARISON: No exams were available for comparison FINDINGS: There is limited evaluation of the pelvis. The endometrium is fluid-filled. It measures 1.1 cm in t hickness which includes the fluid within the endometrial canal. In the right adnexa, there is a 5.0 x 3.5 x 3.6 cm., complex, hypoechoic fluid collection. There is a moderate amount of free fluid seen in the pelvis. IMPRESSION: 1. 5.0 x 3.5 x 3.6 cm complex fluid collection in the right adnexa. Abscess cannot be excluded. 2. Moderate amount of free fluid in the pelvis. 3. Distended fluid-filled endometrial canal in this postmenopausal patient. Gynecologic consult is r ecommended for further evaluation. DATA REPOSITORY:
[2019-04-09 16:29] VITALS: BP 152/60; PULSE 86; RESP 16; TEMP 36.6; O2SAT 95
--- NOTE | 2019-04-09 16:52 | W.ED.GENAD ---
Discharge Plan Disposition Patient Disposition: OTHER Condition: Serious Discharge Details Chief Complaint: GenMedical Clinical Impression: Post-operative complication, Intra-abdominal abscess Primary Care Provider: Wilma Spears ED Provider: Missael Contreras Home Meds and New Rx's Prescriptions: No Action methimazole 5 MG tablet 5 mg PO DAILY RF: 0 spironolactone 25 MG tablet 25 mg PO DAILY RF: 0 Emergen-C 1,000 MG powder effervescent in packet 1,000 mg PO PRN RF: 0 metoprolol tartrate [Lopressor] 100 mg Tablet 50 mg PO BID RF: 0 vitamin B complex Capsule 1 cap PO DAILY RF: 0 cholecalciferol (vitamin D3) [Vitamin D3] 25 mcg (1,000 unit) Tablet 1,000 unit PO DAILY RF: 0 cetirizine 10 mg Tablet 10 mg PO DAILY Qty: 30 RF: 0 dicyclomine 10 mg Capsule 10 mg PO QID PRN PRN (Reason: bloating/cramps) Qty: 30 RF: 0 Floranex 100 million cell Granules In Packet 1 g PO BID 30 Days Qty: 60 RF: 0 tramadol 50 mg tablet 50 mg PO Q6H PRN (Reason: pain) Qty: 20 RF: 0 acetaminophen [Tylenol Extra Strength] 500 mg Tablet 500 PRN PRNRF: 0 Medical Decision Making 64-year-old female with a past medical medical history of a recent appendectomy with rupture, and subsequent drain placement, followed by recent accidental removal of the drain by the patient/falling out of the drain. She was seen at Dr. Beltre's office today, she was noted to have notably tender abdomen, significant white count, no concern for infection, and abscess. She was sent over to the ED by Dr. Beltre to help facilitate transfer. Unfortunately CT scan is currently down. Patient aside for abdominal pain denies any other complaints of nausea vomiting or diarrhea. She admits to occasional chills but no fever. No other modifying factors. Physical exam demonstrates notable abdominal tenderness. No redness or drainage. Dr. Beltre did request that we start Levaquin and Flagyl. We will get blood cultures. CT scan is down, we have called in for ultrasonography. Ultrasonography shows evidence of intra-abdominal abscess per Dr. Beltre and investment director. Currently there are no beds available here at the hospital. Patient will be transferred to [facility], this was facilitated by Dr. Beltre. Case was discussed with the on-call surgeon Dr. Toledo, he agrees to accept the patient. I have extensively reviewed the treatment plan with the patient. I have addressed all patient concerns at this time. I have also discussed the plan with the admitting physician and they agree with the current assessment and plan and have agreed to assume responsibility for the patient. All parties demonstrate verbal understanding and agreement with our assessment and plan at this time. At time of transfer the patient was reassessed and continued to demonstrate current medical stability. No signs of acute respiratory distress requiring intubation, hemodynamic instability requiring pressor support, or rapidly declining mental status. The patient is stable for transport. FINDINGS: Uterus/cervix: Fluid-filled endometrium measures 11 mm in diameter. Limited views of the uterus are unremarkable. Right adnexa: Right adnexal 5.0 x 3.5 x 3.6 cm hypoechoic fluid collection. Left adnexa: Evaluation limited by bowel gas. Free fluid: Moderate volume free fluid in the pelvis. Bladder: Bladder is normal where visualized. IMPRESSION: 1. 5.0 x 3.5 x 3.6 cm hypoechoic fluid collection about the right adnexa. Infected versus sterile. 2. Moderate volume free fluid in the pelvis. 3. Dilated fluid-filled endometrium is greater than expected for postmenopausal state. Consider further evaluation with sonohysterogram on an outpatient basis. Thank you for allowing us to participate in the care of your patient. HPI General Date/Time Provider Initiated Documentation: 04/09/19 16:26. HPI Narrative: 64-year-old female with a past medical medical history of a recent appendectomy with rupture, and subsequent drain placement, followed by recent accidental removal of the drain by the patient/falling out of the drain. She was seen at Dr. Beltre's office today, she was noted to have notably tender abdomen, significant white count, no concern for infection, and abscess. She was sent over to the ED by Dr. Beltre to help facilitate transfer. Unfortunately CT scan is currently down. Patient aside for abdominal pain denies any other complaints of nausea vomiting or diarrhea. She admits to occasional chills but no fever. No other modifying factors. Related Data Home Medications Medication Instructions Recorded Confirmed methimazole 5 mg PO DAILY tab-cap 03/30/15 04/09/19 Emergen-C 1,000 mg PO PRN 10/06/16 04/09/19 spironolactone 25 mg PO DAILY 10/06/16 04/09/19 cholecalciferol (vitamin D3) 1,000 unit PO DAILY 03/30/19 04/09/19 [Vitamin D3] metoprolol tartrate [Lopressor] 50 mg PO BID 03/30/19 04/09/19 vitamin B complex 1 cap PO DAILY 03/30/19 04/09/19 Lactobacillus acidoph-L.bulgar 1 g PO BID 30 Days #60 each 04/04/19 04/09/19 [Floranex] cetirizine 10 mg PO DAILY #30 tab 04/04/19 04/09/19 dicyclomine 10 mg PO QID PRN PRN #30 cap 04/04/19 04/09/19 tramadol 50 mg PO Q6H PRN #20 tab 04/04/19 04/09/19 acetaminophen [Tylenol Extra 500 PRN PRN 04/09/19 Strength] Previous Rx's Medication Instructions Recorded Lactobacillus acidoph-L.bulgar 1 g PO BID 30 Days #60 each 04/04/19 [Floranex] cetirizine 10 mg PO DAILY #30 tab 04/04/19 dicyclomine 10 mg PO QID PRN PRN #30 cap 04/04/19 tramadol 50 mg PO Q6H PRN #20 tab 04/04/19 Allergies Allergy/AdvReac Type Severity Reaction Status Date / Time sulfamethoxazole Allergy Unverified 04/09/19 16:36 [From Bactrim] trimethoprim [From Bactrim] Allergy Unverified 04/09/19 16:36 dye Allergy breathing Uncoded 04/09/19 16:36 issues General Stated Complaint: GenMedical DUSTY: 3 Review of Systems All systems reviewed & are unremarkable except as noted in HPI and below PFSH Medical History (Updated 04/09/19 @ 18:33 by Mansi Beltre DO) Arthritis BMI 36.0-36.9,adult (Chronic) Chest pain pt had NEG holter monitor. Was given nitro by former PCP. Endometrial thickening on ultrasound (Acute) Graves disease (Chronic) stable. 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 Hypertension (Chronic) Infection associated with internal left knee prosthesis (Acute) Treated at [facility] Surgical History Arthroplasty of knee 1993 L knee. Cholecystectomy 1987 - open procedure Colonoscopy - MAC Family History Mother , [place] Myocardial infarction Father , colon [place] Personal history of malignant neoplasm Social History Smoking/Tobacco Use Status: Former Tobacco Use Alcohol Intake: current Alcohol Intake frequency: holidays/special occasions only Drug use: Never Substance use type: does not use Do you feel safe at home: Yes Do you feel safe in your relationship?: Yes Exam Narrative Exam Narrative: 1.Const: Well-nourished, Well-developed, appearing stated age 2.Eyes: PERRL, no conjunctival injection, and symmetrical lids. 3.ENT: Atraumatic external nose and ears. Moist MM. Neck: Symmetric, trachea midline, No thyromegaly. 4.CVS: +S1/S2, No murmurs or gallops. Peripheral pulses 2+ and equal in all extremities. Brisk capillary refill in all extremities. 5.RESP: Unlabored respiratory effort. Clear to auscultation bilaterally. No wheezes rales or rhonchi 6.GI: Soft, Nondistended, No hepatosplenomegaly. No involuntary guarding. Tenderness throughout, especially in the lower aspect of the abdomen in the right lower quadrant. Drain site shows no drainage at this point, no redness. Postop surgical site shows wound clean dry and intact otherwise. Catie in place. 7.MSK: Normocephalic/Atraumatic, Extremities w/o deformity or ttp No cyanosis or clubbing, Normal movement of all extremities 8.Skin: Warm, Dry. No rashes or lesions. 9.Neuro: proposal engineer II-XII grossly intact. Sensation grossly intact, no focal neurologic deficits. 10.Psych: (AAO) x3. Appropriate mood and affect Course Vital Signs Vital signs: Vital Signs Temperature 36.6 C 04/09/19 16:29 Pulse 86 04/09/19 16:29 Respiratory Rate 16 04/09/19 16:29 Blood Pressure 152/60 H 04/09/19 16:29 Pulse Oximetry 95 04/09/19 16:29 Temperature 36.6 C 04/09/19 16:29 Temperature Source Tympanic 04/09/19 16:29 Pulse 86 04/09/19 16:29 Respiratory Rate 16 04/09/19 16:29 Respiratory Effort Non-Labored 04/09/19 16:35 Blood Pressure 152/60 H 04/09/19 16:29 Blood Pressure Position Sitting 04/09/19 16:29 Pulse Oximetry 95 04/09/19 16:29 Oxygen Delivery Method Room Air 04/09/19 16:29 Oxygen Flow Rate 0 04/09/19 16:29 Lab/Test Results Lab/Test Results: 04/09/19 16:27 Blood Blood Culture - Pending 04/09/19 16:27 Blood Blood Culture - Pending
[2019-04-09 16:54] LABS: Bilirubin Negative (Negative); Blood Negative (Negative); Clarity Clear (Clear); Glucose Negative (Negative); Ketones Negative (Negative); Leukocyte Esterase Negative (Negative); Nitrite Negative (Negative); Specific Gravity <= 1.005 (1.005-1.025); Urobilinogen 0.2 EU/dL (Up TO 0.2)
[2019-04-09] MEDS: Normal Saline 500 ML IV (17:05)
--- NOTE | 2019-04-09 17:12 | HPE_ITS ---
Date of service: 04/09/19 Time of Service: 17:12 Assessment and Plan Assessment and plan (1) Intra-abdominal abscess: Status: Acute (2) Acute perforated appendicitis: Status: Acute Assessment and plan: 5cm abscess in pelvis on US levaquin/flagyl transfer to [facility] for CT and poss IR drainage pt hemodyncamically stab;e for transfer (3) Endometrial thickening on ultrasound: Status: Acute Assessment and plan: refer to Hematology Nurse as outpt to address and poss Bx History of Present Illness Consults Consult date: 04/09/19 Narrative: pt had lap appy on 03/30 for ruptured appy. I was able to get it out laprascopically. She did have a KVNG drain in place until 04/03 (it fell out). It was only draining serous. She was having quite a bit of RLQ pain the whole time. But her WBC/CRP had normalized. Today she comes into office today c/i increased RLQ pain. She has no temp/; Seh has good BS. On exam- she doesn't have any more pain than discharge. She is very anxious. Her WBC is elevated. She is taken to the ED for IV abx. Our CT is down and we cannot do CT. US is done and does show she has a 5cm abscess in the pelvis Also noted is a 12cm endometrial stripe and fluid/debries in the uterus. This will be address at latter date w/ referral to [facility]. At this time she has minimal pain and only took po meds. VS 122/54 hr 85 temp 37, L- CTA b/l. A- d/w pt findings on US and will push films to [facility] to correlate Currently [facility] [place]/no admits. [place]. [place] [facility] agree to take her as an admit- so we can get her admitted for IV abx, pain control, and oupt drain placement at [facility]. I will see her back in F/u in the office and will get her sent to [facility] for Bx. Review of Systems All systems reviewed & are unremarkable except as noted in HPI and below Genitourinary Comments: not currently sexually active. no bleeding/spotting. [facility] Medical History Arthritis BMI 36.0-36.9,adult (Chronic) Chest pain pt had NEG holter monitor. Was given nitro by former PCP. Graves disease (Chronic) stable. 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 Hypertension (Chronic) Infection associated with internal left knee prosthesis (Acute) Treated at [facility] Surgical History Arthroplasty of knee 1993 L knee. Cholecystectomy 1987 - open procedure Colonoscopy - MAC Family History Mother , [place] Myocardial infarction Father , colon [place] Personal history of malignant neoplasm Social History Smoking/Tobacco Use Status: Former Tobacco Use Alcohol Intake: current Alcohol Intake frequency: holidays/special occasions only Drug use: Never Substance use type: does not use Do you feel safe at home: Yes Do you feel safe in your relationship?: Yes Meds Home Medications and Allergies Home Medications Medication Instructions Recorded Confirmed Type methimazole 5 mg PO DAILY tab-cap 03/30/15 04/09/19 History Emergen-C 1,000 mg PO PRN 10/06/16 04/09/19 History spironolactone 25 mg PO DAILY 10/06/16 04/09/19 History cholecalciferol (vitamin D3) 1,000 unit PO DAILY 03/30/19 04/09/19 History [Vitamin D3] metoprolol tartrate [Lopressor] 50 mg PO BID 03/30/19 04/09/19 History vitamin B complex 1 cap PO DAILY 03/30/19 04/09/19 History Lactobacillus acidoph-L.bulgar 1 g PO BID 30 Days #60 each 04/04/19 04/09/19 Rx [Floranex] cetirizine 10 mg PO DAILY #30 tab 04/04/19 04/09/19 Rx dicyclomine 10 mg PO QID PRN PRN #30 cap 04/04/19 04/09/19 Rx tramadol 50 mg PO Q6H PRN #20 tab 04/04/19 04/09/19 Rx diphenhydramine-acetaminophen 500 tab PRN PRN 04/09/19 04/09/19 History [Tylenol PM Extra Strength] Allergies Allergy/AdvReac Type Severity Reaction Status Date / Time sulfamethoxazole Allergy Unverified 04/09/19 16:36 [From Bactrim] trimethoprim [From Bactrim] Allergy Unverified 04/09/19 16:36 dye Allergy breathing Uncoded 04/09/19 16:36 issues Exam Const General: cooperative, healthy appearing, comfortable, no acute distress, well developed and well groomed Nutritional Appearance: average body habitus and well nourished Orientation: alert, awake and oriented x3 HENMT Head: normal to inspection, normocephalic and atraumatic Ears: hearing grossly normal bilaterally and external ears normal General nose exam: external nose normal Face and sinus: normal facial exam and sinuses nontender Mouth: oral mucosae normal, lip normal, tongue normal and moist mucous membranes Teeth and gingiva: dentition normal Eyes General: appearance normal, both eyes and all related structures Conjunctivae: conjunctivae normal Sclera: sclerae normal Pupils: PERRL Neck Neck: normal visual inspection and full ROM Chest Chest: normal inspection of the chest Resp Effort & Inspection: normal respiratory effort, able to speak in complete sentences, no cough, no nasal flaring, not tachypneic and no use of accessory muscles Auscultation: clear to auscultation bilaterally, no rales, no rhonchi and no wheezes Cardio Jugular venous pressure: no JVD Rate: regular rate Rhythm: regular rhythm GI Inspection: normal to inspection, no edema, non-distended, incision (c/d/i. minimal redness around umbilical incision. Has small tape burn), obesity and striae Palpation: soft, no masses, nontender and No ascites Auscultation: normal bowel sounds Skin General skin exam: no rashes or lesions noted Trauma: no lacerations or abrasions Neuro General: alert, oriented x3, oriented, gait normal, moves all extremities, no focal motor deficits and CN's II-XI intact bilaterally Cognition: normal cognition Speech: speech normal Gait: normal gait Motor: muscle tone normal throughout Extrem General: normal to inspection, full ROM and no clubbing, cyanosis or edema Psych Appearance: grossly normal and well kempt Mental Status: mental status grossly normal Speech and Movement: speech and movement normal Affect: normal affect Results Labs Labs: Laboratory Results - last 24 hr 04/09/19 16:47 Urine Color Yellow Urine Clarity Clear Urine pH 7.0 Ur Specific [place] <= 1.005 Urine Protein Negative Urine Ketones Negative Urine Blood Negative Urine Nitrite Negative Urine Bilirubin Negative Urine Urobilinogen 0.2 Ur Leukocyte Esterase Negative Urine Glucose Negative Last Vital Signs Temp 36.6 C 04/09/19 16:29 Pulse 86 04/09/19 16:29 Resp 16 04/09/19 16:29 BP 152/60 H 04/09/19 16:29 Pulse Ox 95 04/09/19 16:29
[2019-04-09] MEDS: levoFLOXacin 750 MG/150 ML BAG 100 MG IVPB (17:15)
[2019-04-09] MEDS: cefTRIAXone 2 GM/50 ML BAG IVPB (17:15)
[2019-04-09] MEDS: traMADol 50 MG TAB PO (17:21)
[2019-04-09 18:24] VITALS: BP 122/54; PULSE 85; RESP 16; TEMP 37; O2SAT 99
[2019-04-09] MEDS: metroNIDAZOLE 500 MG/100 ML BAG 100 MG IVPB (18:46)
--- NOTE | 2019-04-09 18:59 | DI.VRAD_ITS ---
PROCEDURE INFORMATION: Exam: US Pelvis Complete, Transabdominal Exam date and time: 04/09/2019 6:11 PM Age: 64 years old Clinical indication: Other: Increasing wbc and pain S/P ruptured appy; Prior surgery; Surgery date: <1 month; Surgery type: S/P ruptured appy 03/30/2019; Additional info: Limited stat exam done with surgeon in room, surgeon just wanted to visualize certain areas to R/O abscess and did not want full exam TECHNIQUE: Imaging protocol: Real-time transabdominal pelvic ultrasound with image documentation. Complete exam. COMPARISON: CT ABDOMEN PELVIS WO 03/30/2019 11:33 AM FINDINGS: Uterus/cervix: Fluid-filled endometrium measures 11 mm in diameter. Limited views of the uterus are unremarkable. Right adnexa: Right adnexal 5.0 x 3.5 x 3.6 cm hypoechoic fluid collection. Left adnexa: Evaluation limited by bowel gas. Free fluid: Moderate volume free fluid in the pelvis. Bladder: Bladder is normal where visualized. IMPRESSION: 1. 5.0 x 3.5 x 3.6 cm hypoechoic fluid collection about the right adnexa. Infected versus sterile. 2. Moderate volume free fluid in the pelvis. 3. Dilated fluid-filled endometrium is greater than expected for postmenopausal state. Consider further evaluation with sonohysterogram on an outpatient basis. Dictated and Authenticated by: Luke Cohen MD. Ordering:MIRIAM Nazario MD
[2019-04-09] MEDS: HYDROmorphone 2 MG/ML VIAL 1 MG IVP (19:17)
[2019-04-09 19:53] VITALS: BP 122/54; PULSE 85; RESP 16; TEMP 37; O2SAT 99
== END 2019-04-09 19:50 | disposition other institution (70) ==
PROVIDERS: Emergency Provider Student in an Organized Health Care Education/Training Program; PCP Nurse Practitioner Family
DX: T81.43XA Infection following a procedure, organ and space surgical site, initial encounter (principal); Y83.6 Removal of other organ (partial) (total) as the cause of abnormal reaction of the patient, or of later complication, without mention of misadventure at the time of the procedure; Z90.49 Acquired absence of other specified parts of digestive tract; I10 Essential (primary) hypertension
CPT/HCPCS: 36415; 76857; 87040; 96361; 96365; 96367; 96368; 96375; 99223; 99285; 81003; J1956

== ENCOUNTER 2020-07-02 01:41 | Outpatient (CLI) | payer MEDICAID, SELFPAY ==
--- NOTE | 2020-07-02 13:00 | NS.NUTBLAN_ITS ---
Tameka was referred to Medical Nutrition Therapy for weight management. PMH: Graves Dx, HTN, obesity. 5'4 248 lbs. Diet recall indicates reliance on convenience foods and sedentary life style. Reports gaining > 20 lbs with covid pandemic. Family hx of DM2 and obesity. Recently retired. Session today focused on how to follow a 1428-1726 kcal meal plan with 80-100 g CHO, 60-80 g protein and 45-55 g fat, along with walking 30 min- 5-6 times per week. Provided written material and meal plans. Goal: 4-6 lbs weight loss per month. Goal weight: 190 lbs Follow up appt. scheduled for 07/26/20 1t 1 pm.
== END 2020-07-02 01:42 | disposition home or self-care (01) ==
LOC: DS 01:41
PROVIDERS: PCP Nurse Practitioner Family; Visit Provider Dietitian, Registered
DX: E66.9 Obesity, unspecified (principal); I10 Essential (primary) hypertension; E05.00 Thyrotoxicosis with diffuse goiter without thyrotoxic crisis or storm; Z71.3 Dietary counseling and surveillance
CPT/HCPCS: 97802

== ENCOUNTER 2020-08-12 14:41 | Outpatient (REF) | payer MEDICAID, SELFPAY ==
[2020-08-12 19:18] LABS: HCT 41.2 % (36.0-46.0); HGB 13.6 g/dL (11.2-15.7); MCH 31.7 pg (27.0-33.0); MPV 10.7 fL (8.0-11.0); Platelet Count 317 10^3/uL (130-400); RBC 4.29 10^6/uL (3.93-5.22); RDW-SD 45.9 fL; WBC 9.27 10^3/uL (4.4-10.8)
[2020-08-12 19:28] LABS: Iron 74 ug/dL (50-170)
[2020-08-12 19:37] LABS: Anion Gap 12.1 mmol/L (3-11); BUN 14 mg/dL (7-18); CO2 25.9 mmol/L (21.0-32.0); CREATININE 0.9 mg/dL (0.55-1.02); Calcium 9.5 mg/dL (8.5-10.1); Chloride 106 mmol/L (98-107); Glucose 110 mg/dL (74-106); Potassium 3.6 mmol/L (3.5-5.1); Sodium 144 mmol/L (136-145); TSH 0.93 uIU/mL (0.36-3.74)
== END 2020-08-12 14:42 | disposition home or self-care (01) ==
LOC: NCHCN 14:41
PROVIDERS: PCP Nurse Practitioner Family; Visit Provider Nurse Practitioner Family
DX: I10 Essential (primary) hypertension (principal); E05.00 Thyrotoxicosis with diffuse goiter without thyrotoxic crisis or storm; Z86.2 Personal history of diseases of the blood and blood-forming organs and certain disorders involving the immune mechanism
CPT/HCPCS: 80048; 85027; 83540; 84443

== ENCOUNTER 2021-02-28 14:27 | Outpatient (CLI) | payer MEDICAID, SELFPAY ==
--- NOTE | 2021-02-28 14:15 | DI.RAD_ITS ---
Exam(s) XR KNEE LT 2V AP,LAT EXAM: XR KNEE LT 2V AP,LAT CLINICAL HISTORY: eval L TKA. TECHNIQUE: 2D digital imaging was performed. COMPARISON: DX Knee LT from 10/17/2019 FINDINGS: Stable position alignment of the components of the prosthesis. No fracture or loosening evident. IMPRESSION: DATA REPOSITORY: RADIATION DOSE DELIVERED:
--- NOTE | 2021-02-28 14:15 | DI.RAD_ITS ---
Exam(s) XR KNEE RT 4V AP,LAT,MINDA,PAT EXAM: XR KNEE RT 4V AP,LAT,MINDA,PAT CLINICAL HISTORY: eval R knee OA. TECHNIQUE: 2D digital imaging was performed. COMPARISON: DX Knee LT from 10/17/2019 CR XR KNEE LT 2V AP,LAT from 02/28/2021 FINDINGS: Four views of the right knee compared to 10/17/2019 No fractures. Asdc-ev-rhrs narrowing of the medial compartment is again noted as well as marginal os teophytes. Also degenerative changes in the patellofemoral compartment. Also moderate degenerative changes in the lateral compartment. Joint effusion noted on the lateral view. No osseous lesions. IMPRESSION: Osteoarthritic degenerative changes, most prominent in the medial compartment DATA REPOSITORY: RADIATION DOSE DELIVERED:
== END 2021-02-28 14:28 | disposition home or self-care (01) ==
LOC: DIORS 14:27
PROVIDERS: PCP Nurse Practitioner Family; Referring Provider Nurse Practitioner Family; Visit Provider Student in an Organized Health Care Education/Training Program
DX: M25.561 Pain in right knee (principal); M17.11 Unilateral primary osteoarthritis, right knee; M25.461 Effusion, right knee; T84.84XA Pain due to internal orthopedic prosthetic devices, implants and grafts, initial encounter; Z96.652 Presence of left artificial knee joint
CPT/HCPCS: 73560; 73564

== ENCOUNTER 2021-04-19 16:02 | Outpatient (REF) | payer MEDICARE, SELFPAY ==
--- NOTE | 2021-04-19 14:00 | PAPFT_PTH ---
PATIENT: Tameka Lyles LOC: [facility]#:[id number] AGE/SX: 66/F ROOM: RE04/19/[address]: Wilma Spears : 1955 BED: DIS: 04/19/2021 SPEC #: [id number] RECD: 04/19/21 18:08 STATUS: DYLON PABON #: [id number] MOE: 04/19/21 14:[address]: Wilma Spears DEPT: [facility] Cytology RECD BY: Joi Carpenter Tissues: 1 - CX/ENDOCX FOR PAP SMEARS Procedures: PAP THIN PREP/UVM Screening HPV DNA PROBE Comments: [id number]
== END 2021-04-19 16:03 | disposition home or self-care (01) ==
LOC: NCHCN 16:02
PROVIDERS: PCP Nurse Practitioner Family; Visit Provider Nurse Practitioner Family
DX: Z11.51 Encounter for screening for human papillomavirus (HPV) (principal); Z12.4 Encounter for screening for malignant neoplasm of cervix; Z01.419 Encounter for gynecological examination (general) (routine) without abnormal findings
CPT/HCPCS: 88142; 87624

== ENCOUNTER 2021-10-28 16:20 | Outpatient (REF) | payer MEDICARE, SELFPAY ==
--- OUTSIDE RECORDS SUMMARY | 2021-10-28 16:24 | XMS_ITS ---
:1955 External Reference #:[id number] Author Care Team Providers Name Role Phone Kimberly Hernandez Primary Care Provider Unavailable Allergies Code Code System Name Reaction Severity Status Onset 386345 RxNorm Bactrim ? ? Active 06/17/1998 Sulfa (Sulfonamide ? ? Active 0 06/17/1998 Antibiotics) 5933 RxNorm Iodine Anaphylaxis ? Active ? Medications Name Status Start Date Stop Date ? ? methimazole 5 mg tablet Active 06/24/2003 Not avai lable 1 tablet every day by oral route. metoprolol tartrate 100 mg tablet Active 06/24/2003 Not available 1 mg every day by oral route. spironolactone 25 mg tablet Active ? Not available Problems Name Status Onset Date Source ? Hyperthyroidism Active 07/17/2018 ? Hyperlipidemia Active 07/17/2018 ? Muscle Weakness Active 07/17/2018 ? Fatigue Active 07/17/2018 ? Numbness and Tingling Sensation of Skin Active 07/18/19 19 ? Heart Murmur Active 07/17/2018 ? Cervical Lymphadenopathy Active 07/17/2018 ? Abdominal Bloating Active 07/17/2018 ? Procedures Date Name Performed by ? 09/05/2016 Hemorrhoidectomy Information not avai lable 07/06/2016 Colonoscopy Information not avai lable 06/05/2012 Cataract Surgery Information not avai lable 06/05/2010 Colonoscopy Information not avai lable 05/06/2009 Cataract Surgery Information not avai lable 04/05/2004 Colonoscopy Information not avai lable 06/05/1998 Angioplasty Information not avai lable 07/06/1993 Arthroscopic Surgery Information not andrade ilable Results Lab Results None recorded. Past Encounters None recorded. Social History Tobacco Smoking Status Former Smoker Vaccine List Vaccine Type DTaP 09/06/1963 measles 09/06/1963 MMR 09/06/1963 mumps 09/06/1963 pertussis 09/06/1963 polio, unspecified formulation 09/06/1963 rubella/mumps 09/06/1963 Plan of Care Reminders Provider Appointments None recorded. ? ? Lab None recorded. ? ? Referral None recorded. ? ? Procedures None recorded. ? ? Surgeries None recorded. ? ? Imaging None recorded. ? ? Vitals Height Weight BMI Blood Pressure 5 ft 6 in 230 lbs 37.1 kg/m2 128/76 mm[Hg]
[2021-10-28 19:06] LABS: Anion Gap 10.1 mmol/L (3-11); BUN 15 mg/dL (7-18); CO2 24.9 mmol/L (21.0-32.0); CREATININE 0.7 mg/dL (0.55-1.02); Calcium 9.6 mg/dL (8.5-10.1); Chloride 106 mmol/L (98-107); Estimated GFR 95.92 (mL/min/1.73m2); Glucose 100 mg/dL (74-106); Potassium 3.8 mmol/L (3.5-5.1); Sodium 141 mmol/L (136-145); TSH (W/Ref FT4) 1.45 uIU/mL (0.36-3.74)
== END 2021-10-28 16:21 | disposition home or self-care (01) ==
LOC: NCHCN 16:20
PROVIDERS: PCP Nurse Practitioner Family; Visit Provider Nurse Practitioner Family
DX: I10 Essential (primary) hypertension (principal); E05.00 Thyrotoxicosis with diffuse goiter without thyrotoxic crisis or storm; F32.9 Major depressive disorder, single episode, unspecified
CPT/HCPCS: 80048; 84443

== ENCOUNTER 2021-12-16 18:35 | Outpatient (REF) | payer MEDICARE, SELFPAY ==
--- OUTSIDE RECORDS SUMMARY | 2021-12-16 18:47 | XMS_ITS | Encounter Summary ---
:1955 Author Organization [facility] [place] [address] Care Team Providers Name Role Phone Oneil Norman APRNTameka Primary Care Provider [phone] Reason for Visit Reason Comments Follow-up Encounter Details Date Type Department Care Team Description 11/30/2011 Office Visit Endocrinology at [facility] Ozzy Purcell (Primary Dx) [place] [address] CENTER [phone] [place] [address] Social History Tobacco Use Types Packs/Day Years Used Date Never Smoker Alcohol Use Standard Drinks/Week Comments Not Asked 0 (1 standard drink = 0.6 oz pure alcoho l) Sex Assigned at Date Recorded Not on file documented as of this encounter Last Filed Vital Signs Vital Sign Reading Time Taken Comments Blood Pressure 142/74 11/30/2011 2:47 PM EDT Pulse 56 11/30/2011 2:47 PM EDT Temperature - - Respiratory Rate - - Oxygen Saturation - - Inhaled Oxygen Concentration - - Weight 94.9 kg (209 lb 3.2 oz) 11/30/2011 2:47 PM EDT Height 168.9 cm (5' 6.5) 11/30/2011 2:47 PM EDT Body Mass Index 33.26 11/30/2011 2:47 PM EDT documented in this encounter Progress Notes Kimberly Long MD - 11/30/2011 3:36 PM EDT PRIMARY CARE PROVIDER: Tameka Riggs APRN Tameka Lyles is a 56-year-old woman here for followup of her Graves disease. She was diagnosed in 2002, and was on antithyroid drugs from 2002 to 2009. We discontinued it, and within six months, she had recurrence. She has been back on methimazole since last fall. We gradually tapered the dose, and in August on 5 mg per day, TSH was 2.49, and clinically she has been feeling okay. Some fatigue, but energy is fine. Some myalgias and arthralgias. She has some regular walking and that sort of helps with it. She continues to feel stressed at her job, but otherwise is doing well. No eye symptoms, no skin rashes, no neck symptoms. Denies nervousness, irritability, tremor, palpitations, heat intolerance, change in her weight, skin or hair, or bowels. Current outpatient prescriptions ordered prior to encounter Medication Sig Dispense Refill ??? ibuprofen (ADVIL;MOTRIN) 600 mg tablet Take 1 tablet by mouth every 6 hours as needed for Pain. 300 tablet 2 ??? metoprolol succinate (TOPROL XL) 100 mg XL tablet Take 1 tablet by mouth 2 times daily. 30 tablet ??? UNABLE TO FIND Take 1 tablet by mouth daily. Bio-Immunozyme Forte ??? CIS Free Text Med - Garlic ??? ascorbic acid (VITAMIN C) 1,000 mg tablet ??? Evening [place] Oil 500 mg Cap Allergies Allergen Reactions ??? Iodine-iodine Containing CIS - Anaphylaxis, CIS - Anaphylaxis ??? Sulfa (Sulfonamide Antibiotics) CIS - Hives, CIS - Hives Patient Active Problem List Diagnoses Code ??? CIS - Graves' disease on methimazole ??? Osteoarthritis 715.90AN PHYSICAL EXAMINATION: Blood pressure 142/74, pulse 56, weight 209 pounds, height 5 feet 6-1/2 inches. In general, she looks well. HEENT: Extraocular movements intact. Her neck is supple. Thyroid gland is about 20 g, mobile and nontender. Skin: Smooth, warm, and dry. On neurologic exam, motor strength and tone are normal. DIAGNOSTIC DATA: Laboratory tests are pending. IMPRESSION/PLAN: Graves disease, on antithyroid drugs, methimazole 5 mg a day. Clinically looks euthyroid. We will await TSH, and adjust dose of medication based on that. We will see her in followup in six months with TSH in the quick draw lab. Recent Results (from the past 72 hour(s)) TSH Component Value Range ??? TSH 1.88 0.27 - 4.20 (mcIU/mL) documented in this encounter Plan of Treatment Not on filedocumented as of this encounter Procedures Procedure Name Priority Date/Time Associated Diagnosis Comme nts TSH STAT 11/30/2011 2:27 PM Hyperthyroidism Result s for this EDT procedure are i n the results section . documented in this encounter Results TSH (05/30/2012 2:35 PM EDT) athologist Signature TSH 1.78 0.27 - 4.20 CERNER mcIU/mL MILLENNIUM Specimen Anatomical Collection Method Collection Time Receive d Time (Source) Location / / Volume Laterality Blood specimen 05/30/2012 2:35 PM 013 2:40 (specimen) EDT PM EDT Resulting Agency Comment Spec In Lab Kimberly Long MD CHEMISTRY ORDERABLES Performing Organization Address City/[facility]/ZIP Code Phon e Number [address] [facility] TSH (11/30/2011 2:27 PM EDT) athologist Signature TSH 1.88 0.27 - 4.20 CERNER mcIU/mL MILLENNIUM Specimen Anatomical Collection Method Collection Time Receive d Time (Source) Location / / Volume Laterality Blood specimen 11/30/2011 2:27 PM 012 2:33 (specimen) EDT PM EDT Resulting Agency Comment Spec In Lab Kimberly Long MD CHEMISTRY ORDERABLES Performing Organization Address City/[facility] Phon e Number [address] [facility] documented in this encounter Visit Diagnoses Diagnosis Hyperthyroidism - Primary Thyrotoxicosis without mention of goiter or other cause, without mention of thyrotoxic crisis or storm documented in this encounter Care Teams Signal System Testing Maintainer Relationship Specialty Start Date End Date Tameka Riggs APRN PCP - General 06/08/10 08/01/15 documented as of this encounter
--- OUTSIDE RECORDS SUMMARY | 2021-12-16 18:47 | XMS_ITS | Encounter Summary ---
:1955 Author Organization [facility] [place] [address] Care Team Providers Name Role Phone Oneil Norman APRN, Nicole Primary Care Provider [phone] Reason for Visit Reason Comments Medication Refill Encounter Details Date Type Department Care Team Description 02/25/2014 Refill Endocrinology at [facility] C Kimberly Long MD [facility] [place] [address] ENDOCRINOLOGY DEPT. [phone] [place], [place] [address] (Wo rk) Social History Tobacco Use Types Packs/Day Years Used Date Never Smoker Alcohol Use Standard Drinks/Week Comments Not Asked 0 (1 standard drink = 0.6 oz pure alcoho l) Sex Assigned at Date Recorded Not on file documented as of this encounter Plan of Treatment Not on filedocumented as of this encounter Visit Diagnoses Not on filedocumented in this encounter Care Teams Syrup Mixer Relationship Specialty Start Date End Date Tameka Riggs APRN PCP - General 06/08/10 08/01/15 documented as of this encounter
--- OUTSIDE RECORDS SUMMARY | 2021-12-16 18:47 | XMS_ITS | Encounter Summary ---
:1955 Author Organization [facility] [address] Care Team Providers Name Role Phone Ivet Huff APRN Primary Care Provider [phone] Encounter Details Date Type Department Care Team Description 03/23/2016 Telephone Endocrinology at [facility] C [place] [address] Social History Tobacco Use Types Packs/Day Years Used Date Never Smoker Alcohol Use Standard Drinks/Week Comments Not Asked 0 (1 standard drink = 0.6 oz pure alcoho l) Sex Assigned at Date Recorded Not on file documented as of this encounter Miscellaneous Notes Telephone Encounter - Andria Alarcon LPN - 03/28/2016 8:46 AM EST Call from patient who states she would rather not have to come to [facility] if she does not have to. Patient will contact PCP to ask if she is willing to monitor thyroid and prescribe medication and then call back to let us know. Telephone Encounter - Andria Alarcon LPN - 03/23/2016 3:30 PM EST Rx request received for MMI 5 mg. Patient last seen 07/15/[address] Mir who has retired. Called patient. No answer. Message left on home v/m for patient to r/c to nurse. Labs scanned into edh that were done on 08/02/15 documented in this encounter Plan of Treatment Not on filedocumented as of this encounter Visit Diagnoses Not on filedocumented in this encounter Care Teams Db2 Developer Relationship Specialty Start Date End Date Ivet Huff APRN PCP - General Family Medicine 08/02/15 08/26/18 [address] [place] [address] documented as of this encounter
--- OUTSIDE RECORDS SUMMARY | 2021-12-16 18:47 | XMS_ITS | Encounter Summary ---
:1955 Author Organization [facility] [place] [address] Care Team Providers Name Role Phone Oneil Norman APRN, Nicole Primary Care Provider [phone] Reason for Visit Reason Comments Medication Refill Encounter Details Date Type Department Care Team Description 02/08/2013 Refill Endocrinology at [facility] C Kimberly Long MD [facility] [place] [address] ENDOCRINOLOGY DEPT. [phone] [place], [place] [address] (Wo rk) Social History Tobacco [...] on filedocumented in this encounter Care Teams Road Oiling Truck Driver Relationship Specialty Start Date End Date Tameka Riggs APRN PCP - General 06/08/10 08/01/15 documented as of this encounter
--- OUTSIDE RECORDS SUMMARY | 2021-12-16 18:47 | XMS_ITS | Encounter Summary ---
:1955 Author Organization [facility] [place] [address] Care Team Providers Name Role Phone Oneil Norman APRN, Nicole Primary Care Provider [phone] Reason for Visit Reason Comments Medication Refill Encounter Details Date Type Department Care Team Description 03/23/2015 Refill Endocrinology at [facility] C Kimberly Long MD [facility] [place] [address] ENDOCRINOLOGY DEPT. [phone] [place], [place] [address] (Wo rk) Social History Tobacco [...] on filedocumented in this encounter Care Teams Flat Surfacer Jewel Relationship Specialty Start Date End Date Tameka Riggs APRN PCP - General 06/08/10 08/01/15 documented as of this encounter
--- OUTSIDE RECORDS SUMMARY | 2021-12-16 18:47 | XMS_ITS | Encounter Summary ---
:1955 Author Organization [facility] [place] [address] Care Team Providers Name Role Phone Oneil Norman APRNEllisle Primary Care Provider [phone] Reason for Visit Reason Comments Hyperthyroidism Encounter Details Date Type Department Care Team Description 07/15/2014 Office Visit Endocrinology at [facility] Kimberly Stanford Hyperthyroidism [facility] [place] [address] [facility] [phone] [address] [place] [address] (Wo rk) Social History Tobacco Use Types Packs/Day Years Used Date Never Smoker Alcohol Use Standard Drinks/Week Comments Not Asked 0 (1 standard drink = 0.6 oz pure alcoho l) Sex Assigned at Date Recorded Not on file documented as of this encounter Last Filed Vital Signs Vital Sign Reading Time Taken Comments Blood Pressure 135/67 07/15/2014 1:52 PM EDT Pulse 56 07/15/2014 1:52 PM EDT Temperature 36.4 ??C (97.6 ??F) 07/15/2014 1:52 PM EDT Respiratory Rate - - Oxygen Saturation 98% 07/15/2014 1:52 PM EDT Inhaled Oxygen Concentration - - Weight 102.1 kg (225 lb) 07/15/2014 1:52 PM EDT Height 170.2 cm (5' 7) 07/15/2014 1:52 PM EDT Body Mass Index 35.24 07/15/2014 1:52 PM EDT documented in this encounter Progress Notes Kimberly Long MD - 07/13/2014 8:04 PM EDT PRIMARY CARE PROVIDER: Tameka Riggs APRN. Ms. Lyles is here for followup of her Graves disease. She was diagnosed in 2002. She was on antithyroid drugs from 2002 to 2009, dose was gradually decreased and we finally discontinued it, but then she had a recurrence within six months. She has been back on antithyroid drug methimazole 5 mg a day Since her last visit, Ms. Lyles has been doing well. She has little fatigue, but she has been taking Benadryl, so she is not sure if that is what is causing it. She has noticed over the last year little decrease in her memory, some mild cold intolerance, a lot of diffuse myalgias and arthralgias particularly in the winter. No constipation change. No skin or hair. No eye symptoms. PAST MEDICAL HISTORY: Graves disease, hypertension, and edema. Current Outpatient Prescriptions Medication Sig Dispense Refill ??? meTOPROLOL succinate (TOPROL-XL) 50 mg Tablet Sustained Release 24 hr Take 2 tablets by mouth 2 times daily. ??? methimazole (TAPAZOLE) 5 mg Tablet take 1 tablet by mouth once daily 90 tablet 3 ??? diphenhydrAMINE (BENADRYL) 25 mg Capsule Take 1 capsule by mouth daily. 30 capsule 0 No current facility-administered medications for this visit. Allergies Allergen Reactions ??? Iodine And Iodide Containing Products CIS - Anaphylaxis, CIS - Anaphylaxis ??? Sulfa (Sulfonamide Antibiotics) CIS - Hives, CIS - Hives SOCIAL HISTORY: She has been a since 2001. 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 Nonsmoker. Nondrinker. Complete review of systems is positive as noted in the present illness and otherwise negative. On physical exam, blood pressure 135/67, pulse 56, weight 225 pounds. In general, she looks well. HEENT: Extraocular movements intact. No lid lag or stare. No periorbital edema. Her neck is supple. Thyroid gland is generous, little larger on the right than the left about 30 g mobile, nontender. No discrete nodules. Lymph nodes: No adenopathy in the neck. Skin: Smooth, warm and dry. Neurologic exam, motor strength and tone are normal. Psychiatric: Mood and affect are appropriate. LABORATORY TESTS: TSH is pending. IMPRESSION: Tameka Lyles is a 59-year-old woman with Graves disease. 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 vermin exterminator antithyroid drugs with methimazole 5 mg a day and has done well. We will await her TSH and adjust her methimazole based on that and we will see her in follow up next year with TSH in the [facility] lab. PLAN: 1. Await TSH. 2. Continue methimazole 5 mg a day. 3. Follow up in one year with TSH in the [facility] lab. Recent Results (from the past 72 hour(s)) TSH Result Value Ref Range TSH 2.08 0.27 - 4.20 mcIU/mL documented in this encounter Plan of Treatment Not on filedocumented as of this encounter Procedures Procedure Name Priority Date/Time Associated Diagnosis Comme nts TSH Routine 07/15/2014 1:46 PM Hyperthyroidism Result s for this EDT procedure are i n the results section . documented in this encounter Results TSH (07/15/2014 1:46 PM EDT) P athologist Signature TSH 2.08 0.27 - 4.20 CERNER mcIU/mL [facility] Specimen Anatomical Collection Method Collection Time Receive d Time (Source) Location / / Volume Laterality Blood specimen 07/15/2014 1:46 PM 015 2:09 (specimen) EDT PM EDT Resulting Agency Comment Spec In Lab Kimberly Long MD CHEMISTRY ORDERABLES Performing Organization Address City/State/[place] [address] [facility] documented in this encounter Visit Diagnoses Diagnosis Hyperthyroidism Thyrotoxicosis without mention of goiter or other cause, without mention of thyrotoxic crisis or storm documented in this encounter Care Teams Cryptographic Machine Operator Relationship Specialty Start Date End Date Tameka Riggs APRN PCP - General 06/08/10 08/01/15 documented as of this encounter
--- OUTSIDE RECORDS SUMMARY | 2021-12-16 18:47 | XMS_ITS | Encounter Summary ---
:1955 Author Organization [facility] [place] [address] Care Team Providers Name Role Phone Oneil Norman APRN, Nicole Primary Care Provider [phone] Encounter Details Date Type Department Care Team Description 11/06/2014 Interpretation Only Cardiology at [facility]; Alton Ortiz MD SVT (supraventricular tachycardia); [address] [facility] [address] [facility] APC (at rial premature contractions) [address] [place] [address] Social History Tobacco Use Types Packs/Day Years Used Date Never Smoker Alcohol Use Standard Drinks/Week Comments Not Asked 0 (1 standard drink = 0.6 oz pure alcoho l) Sex Assigned at Date Recorded Not on file documented as of this encounter Plan of Treatment Not on filedocumented as of this encounter Procedures Procedure Name Priority Date/Time Associated Diagnosis Comme nts HOLTER MONITOR 24 HOUR Routine 11/06/2014 Resul ts for this procedure are i n the results section . documented in this encounter Results Holter Monitor 24hr (11/06/2014) Anatomical Region Laterality Modality Other Narrative 11/06/2014 Ash Lyles ?: 1955 PCP: ASH FOSTER APRN (General) Holter Report- [place] [facility] [address] [facility] [address] [facility] [address] Date of application: 11/04/2014 ?Date of Scan: 11/06/2014 ? Date of Interpretation: 11/06/2014 Indication: palpitations Baseline Rhythm: NSR Symptoms: log kept- frequent palpitation s Report: Minimum HR: 41 (sleep) Average HR: 60 Maximum HR: 88 Ventricular- VPC: 5 Couplets: 0 VT: 0 Atrial- APC: 574 Couplets: 3 SVT: 2, longest 4 beats, fastest 157 BPM Summary: ?NSR throughout, bradycardi a during sleep, rare APC and VPC, 2 brief SVT, no correlation of patient palpitations and minor arrhythmias Electronically signed: [facility] Jr, MD FACC ??Date: 11/07/19 15 Historical Provider CARDIAC SERVICES ORDERABLES documented in this encounter Visit Diagnoses Diagnosis Palpitations SVT (supraventricular tachycardia) Other specified cardiac dysrhythmias APC (atrial premature contractions) Supraventricular premature beats documented in this encounter Care Teams Lap Layer Relationship Specialty Start Date End Date Ash Foster APRN PCP - General 06/08/10 08/01/15 documented as of this encounter
--- OUTSIDE RECORDS SUMMARY | 2021-12-16 18:47 | XMS_ITS | Encounter Summary ---
:1955 Author Organization [facility] [place] [address] Care Team Providers Name Role Phone Oneil Norman APRN, Nicole Primary Care Provider [phone] Reason for Visit Reason Onset Date Comments Results 11/27/2014 DEJUAN MAI 11/26/14 Encounter Details Date Type Department Care Team Description 11/27/2014 Telephone Cardiology at [facility] Results (DEJUAN APPLIED Alton RINCON 11/26/14) [address] [place], [place] [id number] [phone] Social History Tobacco Use Types Packs/Day Years Used Date Never Smoker Alcohol Use Standard Drinks/Week Comments Not Asked 0 (1 standard drink = 0.6 oz pure alcoho l) Sex Assigned at Date Recorded Not on file documented as of this encounter Miscellaneous Notes Telephone Encounter - [facility] Jr., MD - 12/23/2014 6:09 PM EST Loop recorder- NSR with APCs documented in this encounter Plan of Treatment Not on filedocumented as of this encounter Visit Diagnoses Not on filedocumented in this encounter Care Teams Regulatory Affairs Specialist Relationship Specialty Start Date End Date Tameka Riggs APRN PCP - General 06/08/10 08/01/15 documented as of this encounter
--- OUTSIDE RECORDS SUMMARY | 2021-12-16 18:47 | XMS_ITS | Encounter Summary ---
:1955 Author Organization [facility] [place] [address] Care Team Providers Name Role Phone Oneil Norman APRN, Nicole Primary Care Provider [phone] Reason for Visit Reason Comments Graves' Disease Encounter Details Date Type Department Care Team Description 05/30/2012 Office Visit Endocrinology at [facility] Ema Stanford [facility] Ozzy Purcell (Primary Dx) [place] [address] CENTER [phone] [place] [address] Social History Tobacco Use Types Packs/Day Years Used Date Never Smoker Alcohol Use Standard Drinks/Week Comments Not Asked 0 (1 standard drink = 0.6 oz pure alcoho l) Sex Assigned at Date Recorded Not on file documented as of this encounter Last Filed Vital Signs Vital Sign Reading Time Taken Comments Blood Pressure 132/69 05/30/2012 3:24 PM EDT Pulse 51 05/30/2012 3:24 PM EDT Temperature - - Respiratory Rate - - Oxygen Saturation - - Inhaled Oxygen Concentration - - Weight 95.7 kg (211 lb) 05/30/2012 3:24 PM EDT Height - - Body Mass Index 33.55 11/30/2011 2:47 PM EDT documented in this encounter Progress Notes Kimberly Long MD - 05/30/2012 3:43 PM EDT PRIMARY CARE PROVIDER: Tameka Riggs APRN. Ms. Lyles is here for followup of her Graves disease. She was diagnosed in 2002. She was on antithyroid drugs from 2002 to 2009, dose was gradually decreasing and we finally discontinued it, but then she had a recurrence within six months. She has been back on antithyroid drug. Since then, so far about two years now on methimazole 5 mg a day, and over the past six months clinically she has been feeling well other than some fatigue, but she chalks that up to working two jobs. Denies nervousness, irritability, tremor, palpitations, heat intolerance, change in her weight, hair, skin, mood, bowels, myalgias, arthralgias, fatigue, or lethargy. She has developed some edema and she has been started on chlorthalidone with good control with that and has had some hypokalemia, so is on potassium as well. PAST MEDICAL HISTORY: Graves disease, hypertension, and edema. Current Outpatient Prescriptions on File Prior to Visit Medication Sig Dispense Refill ??? methimazole (TAPAZOLE) 5 mg tablet Take 1 tablet by mouth daily. 90 tablet 4 ??? metoprolol succinate (TOPROL XL) 100 mg XL tablet Take 1 tablet by mouth 2 times daily. 30 tablet ??? UNABLE TO FIND Take 1 tablet by mouth daily. Bio-Immunozyme Forte ??? CIS Free Text Med - Garlic ??? ascorbic acid (VITAMIN C) 1,000 mg tablet ??? Evening Ideal Oil 500 mg Cap Allergies Allergen Reactions ??? Iodine-Iodine Containing CIS - Anaphylaxis, CIS - Anaphylaxis ??? Sulfa (Sulfonamide Antibiotics) CIS - Hives, CIS - Hives SOCIAL HISTORY: She is a . 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 She is a nonsmoker, nondrinker. She is hoping to move to [place] at some point, but may wait a couple of years till she retires. COMPLETE REVIEW OF SYSTEMS: She has arthralgias in her hip, shoulders, knees, ankles, also has some peripheral edema. She is under good control. PHYSICAL EXAMINATION: Blood pressure 132/69, pulse 51, and weight 211 pounds. In general, she looks well. Her skin is smooth, warm, and dry. No ulcerations. HEENT: Extraocular movements intact. No lid lag or stare. No periorbital edema. Neck: Supple. Thyroid gland is small barely palpable. Lymph nodes, no adenopathy in the neck. Neurologic Exam: Motor strength and tone are normal. There is no tremor. Gait is normal. Psych: Mood and affect are appropriate. LABORATORY TESTS: TSH 1.78. IMPRESSION: Tameka Lyles has Graves disease, been on antithyroid drugs for most of the past 10 years, currently is euthyroid clinically and chemically. We will continue methimazole 5 mg a day. We will just see her on an annual basis. PLAN: Followup in one year with TSH in the quick draw lab. documented in this encounter Plan of Treatment Not on filedocumented as of this encounter Procedures Procedure Name Priority Date/Time Associated Diagnosis Comme nts TSH STAT 05/30/2012 2:35 PM Hyperthyroidism Result s for this EDT procedure are i n the results section . documented in this encounter Results TSH (05/30/2012 2:35 PM EDT) P athologist Signature TSH 1.78 0.27 - 4.20 CERNER mcIU/mL [facility] Specimen Anatomical Collection Method Collection Time Receive d Time (Source) Location / / Volume Laterality Blood specimen 05/30/2012 2:35 PM 013 2:40 (specimen) EDT PM EDT Resulting Agency Comment Spec In Lab Kimberly Long MD CHEMISTRY ORDERABLES Performing Organization Address City/State/ZIP Code Phon e Number [address] [facility] documented in this encounter Visit Diagnoses Diagnosis Hyperthyroidism - Primary Thyrotoxicosis without mention of goiter or other cause, without mention of thyrotoxic crisis or storm documented in this encounter Care Teams Hardwood Floor Installer Relationship Specialty Start Date End Date Tameka Riggs APRN PCP - General 06/08/10 08/01/15 documented as of this encounter
--- OUTSIDE RECORDS SUMMARY | 2021-12-16 18:47 | XMS_ITS | Encounter Summary ---
:1955 Author Organization [facility] [place] [address] Care Team Providers Name Role Phone Darcie Haque MD Primary Care Provider Encounter Details Date Type Department Care Team Description 04/16/2019 [place] [address] Social History Tobacco Use Types Packs/Day Years Used Date Former Smoker Cigarettes 0.5 15 Smokeless Tobacco: Never Used Comments: quit smoking 31 years ago Alcohol Use Standard Drinks/Week Comments Not Asked 0 (1 standard drink = 0.6 oz pure alcoho l) Sex Assigned at Date Recorded Not on file documented as of this encounter Medications at Time of Discharge Medication Sig Dispensed Refills Start Date End Date metoprolol (LOPRESSOR) 100 Take 50 mg by mouth 2 0 mg Tablet times daily. spironolactone (ALDACTONE) Take 25 mg by mouth 0 25 mg Tablet daily. nitroGLYcerin (NITROSTAT) Place 0.4 mg under 0 0.4 mg Tablet, Sublingual the tongue every 5 minutes as needed for Chest pain. VITAMIN A ORAL Take 2,400 mg by 0 mouth daily. cyanocobalamin, vitamin Take 2,400 mg by 0 B-12, (B-12 DOTS ORAL) mouth 2 times daily. Ascorbic Acid (VITAMIN C) Take 1,000 mg by 0 1,000 mg Tablet Sustained mouth daily. Release cholecalciferol, Vitamin Take 2,000 Units by 0 D3, (D3-2000) 2,000 unit mouth daily. Capsule UNABLE TO FIND Lutein, Blueberry, 0 Billberry complex 2 tablets daily vitamin E (VITAMIN E) 400 Take 400 Units by 0 unit Capsule mouth daily. evening primrose oil Take 1,000 mg by 0 (EVENING PRIMROSE ORAL) mouth 2 times daily. vmch-wunk-lzq-amr-fqx-dwvr Take 4 tablets by 0 -hor [phone] mg mouth 2 times daily. Tablet magnesium oxide (MAG-OX) Take 400 mg by mouth 0 400 mg (241.3 mg daily. magnesium) Tablet UNABLE TO FIND 250 mg. Valerian root 0 with passion flower, 1 tablet nightly UNABLE TO FIND Aloe vera distilled 0 juice 2 ounces twice a day UNABLE TO FIND Coloidal Silver 1 0 tablespoon daily methimazole (TAPAZOLE) 5 take 1 tablet by 90 tablet 3 03/23 mg Tablet mouth once daily documented as of this encounter Plan of Treatment Not on filedocumented as of this encounter Procedures Procedure Name Priority Date/Time Associated Comments Diagnosis SMEAR REVIEW REPORT Routine 04/16/2019 9:43 PM Re sults for this EDT procedure are i n the results section. PERIPHERAL SMEAR Routine 04/16/2019 6:30 AM Resul ts for this REVIEW EDT procedure are i n the results section. documented in this encounter Results Smear Review Report (04/16/2019 9:43 PM EDT) Component Value Ref Test Analysis Performed At [facility] Range Method Time Signature Smear Review [id number] ? Location: [facility] The signing pathologist has (i) examined the relevant preparation(s) for the [facility] specimen(s) and (ii) rendered or confirmed the diagnosis(es) . HOSPITAL LABORATORY . ? ear Review DIAGNOSIS Anemia, thrombocytosis Electronically signed by: ??Kaushal Bertrand MD Verified: ??04/17/2019 ?Hematopathologist Performed at: ??-[facility], [place], [place] DISCUSSION There is ??anemia ( 10.6gm/dl, MCV 96.3). ??The red blood ce lls show anisopoikilocytosis with elliptocytes, seen. ??There is no hypochromasia, nor polychromasia. ??The white blood cells( 13.3 10^3/uL)show hypergranulated toxic morphology. Platelets ( 668 10^3/uL) show normal platelet m orphology. The anemia is likely of ??mu ltifactorial etiology such as anemia of nutritional deficiencies, anemia of chronic inflammation as seen in chidi er and renal abnormalities. No significant hemolysis seen ??morphologica lly. NOTE _Thrombocytosis can be seen in infection, inflammation, acute conditions such as bleeding . However, if pers istent and not explained, may raise concern for a marrow disorder. Preliminary molec ular studies such as BCR-ABL , Jak2 , CALr MPL mutations can be pursed , if clinically indicated. ADDITIONAL STUDIES NOT DONE CLINICAL INFORMATION cytosis Specimen (Source) Anatomical Collection Method Collection Time Re ceived Time Location / / Volume Laterality 04/16/2019 9:43 PM EDT Christiano Toledo DO PATHOLOGY/CYTOLOGY ORDERABL ES Performing Organization Address City/State/[place] [address] Peripheral Smear Review (04/16/2019 6:30 AM EDT) [facility] gist Method Time Signature Periph Smear See Comment [facility] LABORATORY Comment: When completed by the Pathologist, repor t [id number] will display under Hematopathology Reports. Specimen Anatomical Collection Method Collection Time Receive d Time (Source) Location / / Volume Laterality Blood specimen Venous Draw / 04/16/2019 6:30 AM 2019 9:03 (specimen) Unknown EDT PM EDT Resulting Agency Comment Spec In Lab Christiano Toledo DO HEMATOLOGY ORDERABLES Performing Organization Address City/[facility]/ZIP [place] [address] documented in this encounter Visit Diagnoses Not on filedocumented in this encounter Care Teams Records Tech Relationship Specialty Start Date End Date Darcie Haque MD PCP - General Family Medicine 08/27/18 [address] [place] [address] documented as of this encounter
--- OUTSIDE RECORDS SUMMARY | 2021-12-16 18:47 | XMS_ITS | Clinical Summary ---
:1955 Author Organization [facility] [place] [address] Care Team Providers Name Role Phone Darcie Haque MD Primary Care Provider Allergies Active Allergy Reactions Severity Noted Date Comments Iodine And Iodide High Anaphylaxi s Containing Products Sulfa (Sulfonamide Hives Antibiotics) [place] 08/27/2018 Throat swelling and mouth sores Medications Medication Sig Dispensed Refills Start Date End Date Status methimazole (TAPAZOLE) take 1 tablet by 90 tablet 3 03/23/2015 Active 5 mg Tablet mouth once daily metoprolol (LOPRESSOR) Take 50 mg by 0 Active 100 mg Tablet mouth 2 times daily. spironolactone Take 25 mg by 0 A ctive (ALDACTONE) 25 mg mouth daily. Tablet nitroGLYcerin Place 0.4 mg under 0 Active (NITROSTAT) 0.4 mg the tongue every 5 Tablet, Sublingual minutes as needed for Chest pain. VITAMIN A ORAL Take 2,400 mg by 0 Active mouth daily. cyanocobalamin, Take 2,400 mg by 0 Active vitamin B-12, (B-12 mouth 2 times DOTS ORAL) daily. Ascorbic Acid (VITAMIN Take 1,000 mg by 0 Active C) 1,000 mg Tablet mouth daily. Sustained Release cholecalciferol, Take 2,000 Units 0 Active Vitamin D3, (D3-2000) by mouth daily. 2,000 unit Capsule UNABLE TO FIND Lutein, Blueberry, 0 Active Billberry complex 2 tablets daily vitamin E (VITAMIN E) Take 400 Units by 0 Active 400 unit Capsule mouth daily. evening primrose oil Take 1,000 mg by 0 Active (EVENING PRIMROSE mouth 2 times ORAL) daily. qdyy-alvu-qpb-yuc-dina- Take 4 tablets by 0 Active naila-hor mouth 2 times [phone] mg daily. Tablet magnesium oxide Take 400 mg by 0 Active (MAG-OX) 400 mg (241.3 mouth daily. mg magnesium) Tablet UNABLE TO FIND 250 mg. Valerian 0 Active root with passion flower, 1 tablet nightly UNABLE TO FIND Aloe vera 0 Activ e distilled juice 2 ounces twice a day UNABLE TO FIND Coloidal Silver 1 0 Active tablespoon daily Active Problems Problem Noted Date Family history of heart disease 08/27/2018 Hypertension 08/27/2018 Hyperlipidemia 08/27/2018 Palpitations 08/27/2018 Overview: Loop recorder 2015- NSR and APCs Chest pain 08/27/2018 Overview: [address] in [place]- normal cors Hyperthyroidism 07/13/2014 Osteoarthritis 06/08/2010 CIS - Graves' disease on methimazole 02/05/2002 Family History Medical History Relation Comments Heart Surgery Brother 1 Hyperlipidemia Brother 1 Hypertension Brother 1 Heart Surgery Brother 2 Hyperlipidemia Brother 2 Hypertension Brother 2 Colorectal Cancer Father Hyperlipidemia Mother Hypertension Mother Myocardial Infarction Mother Hyperlipidemia Sister 1 Hypertension Sister 1 Hypertension Sister 2 Relation Status Comments Brother 1 Alive Brother 2 Alive Father Mother Sister 1 Alive Sister 2 Alive Social History Tobacco Use Types Packs/Day Years Used Date Former Smoker Cigarettes 0.5 15 Smokeless Tobacco: Never Used Comments: quit smoking 31 years ago Alcohol Use Standard Drinks/Week Comments Not Asked 0 (1 standard drink = 0.6 oz pure alcoho l) Sex Assigned at Date Recorded Not on file Last Filed Vital Signs Vital Sign Reading Time Taken Comments Blood Pressure 130/45 08/27/2018 1:56 PM EDT Pulse 53 08/27/2018 1:55 PM EDT per ekg Temperature 36.4 ??C (97.6 ??F) 07/15/2014 1:52 PM EDT Respiratory Rate - - Oxygen Saturation 98% 07/15/2014 1:52 PM EDT Inhaled Oxygen Concentration - - Weight 103.9 kg (229 lb) 08/27/2018 1:55 PM EDT Height 168.9 cm (5' 6.5) 08/27/2018 1:55 PM EDT Body Mass Index 36.41 08/27/2018 1:55 PM EDT Plan of Treatment Health Maintenance Due Date Last Done Comments Covid-19 Vaccine (#1) 1955 HIV screen 1974 Hepatitis C Screening 1974 Lipid Screening 1974 Tdap adult 1975 Tetanus vaccine 1975 HPV test 1986 PAP Smear 1986 Breast Cancer Share Decision Needed 1996 Colonoscopy 2001 Breast Cancer screening 2006 Zoster vaccine (1 of 2) 2006 Advance Directive 2011 Bone Density Scan 2021 Pneumoccocal Vaccine: 65+ (1 - PCV) 2021 Influenza (Flu) vaccine (1 of 1 - Influenza standard 10/06/2021 series) Insurance Payer Benefit Plan / Subscriber ID Effective Dates Phone Addre ss Type Group MVP [facility] [id number] 2017-Present [phone] [address] [place] [address] Care Teams Pararescue Manager Relationship Specialty Start Date End Date Darcie Haque MD PCP - General Family Medicine 08/27/18 [address] [place], [place] [id number]
--- OUTSIDE RECORDS SUMMARY | 2021-12-16 18:47 | XMS_ITS | Encounter Summary ---
:1955 Author Organization [facility] [place] [address] Care Team Providers Name Role Phone Darcie Haque MD Primary Care Provider Reason for Visit Reason Comments Establish Care Family history very strong f or Cardiac Issues Preoperative Cardiovascular Scheduled for left TKA on 10/01 at [facility] (they were ok with date of pre-op clearance) Encounter Details Date Type Department Care Team Description 08/27/2018 Office Visit Cardiology at [facility] [place] histo ry of heart disease; Alton Ortiz MD Essential hypertension; [address] [facility] Hype rlipidemia, unspecified hyperlipidemia type; [address] R[place] A Palpitations; [place], [place] Chest pain, u nspecified type [id number] [phone] Social History Tobacco Use Types Packs/Day Years [...] 08/27/2018 1:55 PM EDT per ekg Temperature - - Respiratory Rate - - Oxygen Saturation - - Inhaled Oxygen Concentration - - Weight 103.9 kg (229 lb) 08/27/2018 1:55 PM EDT Height 168.9 cm (5' 6.5) 08/27/2018 1:55 PM EDT Body Mass Index 36.41 08/27/2018 1:55 PM EDT documented in this encounter Progress Notes Obie Owusu Jr., MD - 08/27/2018 1:20 PM EDT Referring PCP: Darcie Haque MD Cardiology consultation History: Tameka Lyles is a 63 y.o. old female seen at the request of Darcie Haque MD for evaluation of cardiac risk for surgery. She has a strong family history of CAD and in the past has had atypical chest pain with negative workup. For some years she had palpitations at night associated with chest tightness. Those have progressively improved since she retired and she has had none for the last9 months. When she was more active she had no exertional chest pain or limiting dyspnea. For the last few months she has not been very active due to knee pain. She denies edema, PND or orthopnea. Her energy level is stable. Allergies Allergen Reactions ??? Iodine And Iodide Containing Products Anaphylaxis ??? Sulfa (Sulfonamide Antibiotics) Hives ??? [place] Throat swelling and mouth sores Current Outpatient Medications Medication Sig Dispense Refill ??? metoprolol (LOPRESSOR) 100 mg Tablet Take 50 mg by mouth 2 times daily. ??? spironolactone (ALDACTONE) 25 mg Tablet Take 25 mg by mouth daily. ??? nitroGLYcerin (NITROSTAT) 0.4 mg Tablet, Sublingual Place 0.4 mg under the tongue every 5 minutes as needed for Chest pain. ??? VITAMIN A ORAL Take 2,400 mg by mouth daily. ??? cyanocobalamin, vitamin B-12, (B-12 DOTS ORAL) Take 2,400 mg by mouth 2 times daily. ??? Ascorbic Acid (VITAMIN C) 1,000 mg Tablet Sustained Release Take 1,000 mg by mouth daily. ??? cholecalciferol, Vitamin D3, (D3-2000) 2,000 unit Capsule Take 2,000 Units by mouth daily. ??? UNABLE TO FIND Lutein, Blueberry, Billberry complex 2 tablets daily ??? vitamin E (VITAMIN E) 400 unit Capsule Take 400 Units by mouth daily. ??? evening primrose oil (EVENING PRIMROSE ORAL) Take 1,000 mg by mouth 2 times daily. ??? ppcz-htek-vnu-yib-tcx-qeyu-hor [phone] mg Tablet Take 4 tablets by mouth 2 times daily. ??? magnesium oxide (MAG-OX) 400 mg (241.3 mg magnesium) Tablet Take 400 mg by mouth daily. ??? UNABLE TO FIND 250 mg. Valerian root with passion flower, 1 tablet nightly ??? UNABLE TO FIND Aloe vera distilled juice 2 ounces twice a day ??? UNABLE TO FIND Coloidal Silver 1 tablespoon daily ??? methimazole (TAPAZOLE) 5 mg Tablet take 1 tablet by mouth once daily 90 tablet 3 No current facility-administered medications for this visit. Patient Active Problem List Diagnosis ??? Family history of heart disease ??? Hypertension ??? Hyperlipidemia ??? Palpitations Loop recorder 2015- NSR and APCs ??? Chest pain Cath [facility] [place]- normal cors ??? Hyperthyroidism ??? Osteoarthritis ??? CIS - Graves' disease on methimazole Coronary risk factors: Smoking: former Diabetes:no Hypercholesterolemia:yes Hypertension: yes Family history of premature disease: yes Family History Problem (# of Occurrences) Relation (Name,Age of Onset) Colorectal Cancer (1) Father Heart Surgery (2) Brother, Brother Hyperlipidemia (4) Mother, Sister, Brother, Brother Hypertension (5) Mother, Sister, Brother, Sister, Brother Myocardial Infarction (1) Mother Cardiac tests: no recent Social History Socioeconomic History ??? Marital status: Spouse name: Not on file ??? Number of children: Not on file ??? Years of education: Not on file ??? Highest education level: Not on file Occupational History ??? Not on file Social Needs ??? Financial resource strain: Not on file ??? Food insecurity: Worry: Not on file Inability: Not on file ??? Transportation needs: Medical: Not on file Non-medical: Not on file Tobacco Use ??? Smoking status: Former Smoker Packs/day: 0.50 Years: 15.00 Pack years: 7.50 Types: Cigarettes ??? Smokeless tobacco: Never Used ??? Tobacco comment: quit smoking 31 years ago Substance and Sexual Activity ??? Alcohol use: Not on file ??? Drug use: Not on file ??? Sexual activity: Not on file Lifestyle ??? Physical activity: Days per week: Not on file Minutes per session: Not on file ??? Stress: Not on file Relationships ??? Social connections: Talks on phone: Not on file Gets together: Not on file Attends jew service: Not on file Active member of club or organization: Not on file Attends meetings of clubs or organizations: Not on file Relationship status: Not on file ??? Intimate partner violence: Fear of current or ex partner: Not on file Emotionally abused: Not on file Physically abused: Not on file Forced sexual activity: Not on file Other Topics Concern ??? Not on file Social History Narrative ??? 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 General: WD, overweight Skin: no rash HEENT: no xanthoma Neck: No JVD, HJR, or carotid abnormalities, thyroid benign Lungs: Clear Cor: RR, normal S1, S2. PMI not displaced. No murmur or gallop Abd: soft, no L/S/K enlargement or bruits Ext: Pulses preserved, equal bilaterally, no edema, cyanosis or clubbing Musculoskeletal: no muscle tenderness Neuro: grossly nonfocal Psych: normal affect, appropriate EKG: SB 53, normal Lab data: None for review Assessment: 1) past atypical chest pain- no recent. She has cardiac risk factors but no current symptoms and a normal EKG. She has an acceptable cardiac risk for anesthesia and surgery. No pre op cardiac testing is necessary. She should take her metoprolol the morning of the procedure 2) HTN- controlled 3) hyperlipidemia- should check once she is more mobile after surgery Plan: 1) A discussion was held concerning the patient's chief complaints, the presumptive diagnosis(es) and the options for further evaluation and management. Reviewed the assessment above and the recommendations below in detail. 2) medical therapy unchanged 3) follow up PRN documented in this encounter Plan of Treatment Not on filedocumented as of this encounter Procedures Procedure Name Priority Date/Time Associated Diagnosis Comme nts ECG SCAN 09/05/2018 12:00 AM Results for this EDT procedure are i n the results section . documented in this encounter Results SCAN DOC: ECG (09/05/2018 12:00 AM EDT) Narrative 09/05/2018 12:00 AM EDT This result has an attachment that is no t available. Ordered by an unspecified provider. Scanning Provider MEDIA MGR SCAN EXT ORDR/RSLT documented in this encounter Visit Diagnoses Diagnosis Family history of heart disease Essential hypertension Unspecified essential hypertension Hyperlipidemia, unspecified hyperlipidem ia type Palpitations Chest pain, unspecified type documented in this encounter Care Teams Glass Washer Relationship Specialty Start Date End Date Darcie Haque MD PCP - General Family Medicine 08/27/18 [address] [place] [address] documented as of this encounter
--- OUTSIDE RECORDS SUMMARY | 2021-12-16 18:47 | XMS_ITS | Encounter Summary ---
:1955 Author Organization [facility] [place] [address] Care Team Providers Name Role Phone Oneil Norman APRN, Nicole Primary Care Provider [phone] Encounter Details Date Type Department Care Team Description 11/17/2014 Telephone Cardiology at [facility] Obie Owusu Jr., MD [address] [facility] [place] [address] [place], [place] [phone] (Wo rk) Social History Tobacco Use Types Packs/Day Years Used Date Never Smoker Alcohol Use Standard Drinks/Week Comments Not Asked 0 (1 standard drink = 0.6 oz pure alcoho l) Sex Assigned at Date Recorded Not on file documented as of this encounter Miscellaneous Notes Telephone Encounter - Camila Vázquez - 11/19/2014 4:58 PM EDT The patient's Holter Monitor 11/06/14 results were faxed to Tameka Riggs APRN at [phone] asrequested. Telephone Encounter - Camila Vázquez - 11/17/2014 8:19 AM EDT Received a call from Eva from pt's PCP, Tameka Riggs APRN, office requesting a copy of the 11/06/14 holter results be faxed to the office at [phone] (fax). Pt is being seen this morning. documented in this encounter Plan of Treatment Not on filedocumented as of this encounter Visit Diagnoses Not on filedocumented in this encounter Care Teams Fabrication And Assembly Supervisor Relationship Specialty Start Date End Date Tameka Riggs APRN PCP - General 06/08/10 08/01/15 documented as of this encounter
--- OUTSIDE RECORDS SUMMARY | 2021-12-16 18:47 | XMS_ITS | Encounter Summary ---
:1955 Author Organization [facility] [place] [address] Care Team Providers Name Role Phone Darcie Haque MD Primary Care Provider Encounter Details Date Type Department Care Team Description 08/27/2018 Abstract Cardiology at [facility] Domo Hopper RN [address] [place] [phone] Social History Tobacco Use Types Packs/Day Years [...] on filedocumented in this encounter Care Teams Adult Ministries Director Relationship Specialty Start Date End Date Darcie Haque MD PCP - General Family Medicine 08/27/18 [address] [place] [address] documented as of this encounter
--- OUTSIDE RECORDS SUMMARY | 2021-12-16 18:48 | XMS_ITS | Encounter Summary ---
:1955 Author Organization [facility] Address [address] [place] [address] Care Team Providers Name Role Phone Unknown, Provider Primary Care Provider Encounter Details Date Type Department Care Team Description 03/30/2015 Results Only [facility]- Libertad Sullivan MD [phone] [facility] [place], [place] [id number] (Wo rk) Social History Tobacco Use Types Packs/Day Years Used Date Smoking Tobacco: Never Assessed Sex Assigned at Date Recorded Not on file documented as of this encounter Plan of Treatment Not on filedocumented as of this encounter Procedures Procedure Name Priority Date/Time Associated Diagnosis Comme nts PAP TEST- RESULT Routine 03/30/2015 0:00 EST Resu lts for this ONLY procedure are i n the results section. documented in this encounter Results PAP TEST- RESULT ONLY (03/30/2015 0:00 EST) Component Value Ref Test Analysis Performed At [facility] Method Time Signature Pathology CYTOPATHOLOGY REPORT [facility] Report: CENTER Reports generated via electronic interface contain origina l data; LABORATORY however they are lacking the format of the original report. SERVICES Caution should be taken when reading/interpreting unformatte d reports. Name: ? ASH LYLES ? Accession #: ? [id number] ? : ? 1955 (Age: [age]) ??F ?Collect Date: ? 03/30/2015 ? Location: ? [facility] ? Receive Date: ? 03/31/2015 ? Provider: LIBERTAD TAMEZ MD Copy to: ASH CERRATO ? Final Report SPECIMEN ADEQUACY ? Satisfactory for Evaluation - transformation zone component present GENERAL CATEGORIZATION ? Negative for Intraepithelial Lesion or Malignancy ?? Menstrual/ Status: ??Post Menopausal Hormonal/Contraceptive status: None Specimen/Source: ??Pap Test, Cervix/Endocervix, ThinPr ep Imaging System with manual evaluation Document reviewed and electronically signed by: ? Zenaida aGndara, CT(ASCP) ? Report ??Date: 04/07/2015 14:00 HPV with Pap Test ? Date Ordered: ? 04/07/2015 ? Status: ?? Signed Out ?Date Complete: ? 04/09/2015 ? By: ??System In [facility] ? Date Reported: ? 04/09/2015 ? Interpretation RESULT: Negative for HPV. No E6 or E7 mRNA is detected from HPV types 16,18,31,33,35, 39,45,51,52,56,58,59,66, and 68 by painting contractor mediated amplification. Comments Document reviewed and electronically signed by: ? System Interface ? Report date: 04/09/2015 By the signature above, the attending physician certifies th at he/she has personally conducted a gross and/or microscopic examin ation of the described specimens and rendered or confirmed the above diagnosis. End of Report Specimen (Source) Anatomical Location Collection Method / Collectio n Time Received Time / Laterality Volume 03/30/2015 03/31/2015 Libertad Tamez MD PATHOLOGY ORDERABLES Performing Organization Address City/State/ZIP Code Phon e Number [facility] [address] [place], [place] [id number] SERVICES documented in this encounter Visit Diagnoses Not on filedocumented in this encounter Care Teams Solar Field Installation Crew Member Relationship Specialty Start Date End Date Unknown, Provider, PCP - General 06/24/10 documented as of this encounter
--- OUTSIDE RECORDS SUMMARY | 2021-12-16 18:48 | XMS_ITS ---
:1955 External Reference #:[id number] Author Care Team Providers Name Role Phone Kimberly Hernandez Primary Care Provider Unavailable Allergies Code Code System Name Reaction Severity Status Onset [id number] RxNorm Bactrim ? ? Active 06/17/1998 Sulfa [...]
--- OUTSIDE RECORDS SUMMARY | 2021-12-16 18:48 | XMS_ITS | Encounter Summary ---
:1955 Author Organization [facility] [place] [address] Care Team Providers Name Role Phone Oneil Norman APRN, Nicole Primary Care Provider [phone] Reason for Visit Reason Comments Hyperthyroidism follow up Encounter Details Date Type Department Care Team Description 06/08/2010 Office Visit Endocrinology at [facility] Ozzy Purcell (Primary Dx) [place] [address] CENTER [phone] [place] [address] Social History Tobacco Use Types Packs/Day Years Used Date Never Smoker Alcohol Use Standard Drinks/Week Comments Not Asked 0 (1 standard drink = 0.6 oz pure alcoho l) Sex Assigned at Date Recorded Not on file documented as of this encounter Last Filed Vital Signs Vital Sign Reading Time Taken Comments Blood Pressure 151/52 06/08/2010 11:39 AM EDT Pulse 63 06/08/2010 11:39 AM EDT Temperature - - Respiratory Rate - - Oxygen Saturation - - Inhaled Oxygen Concentration - - Weight 98.4 kg (217 lb) 06/08/2010 11:39 AM EDT Height - - Body Mass Index - - documented in this encounter Progress Notes Kimberly Long MD - 06/08/2010 12:17 PM EDT DATE OF : 1955 PRIMARY CARE PROVIDER: Tameka Riggs APRN Ms. Lyles is here for followup of her Graves' disease which was diagnosed in 2002. She was on antithyroid drugs from 2002 to 09/2009. At that time, on methimazole 2.5 mg a day, TSH was in the upper normal at about 3.5 and we decided to discontinue and she if she achieved her remission. Within six months, she had returned quite hyperthyroid. In 03/2010, she noticed nervousness, irritability, tremor, palpitations, heat intolerance. T4 was 16.6 and T3 474! We started methimazole 10 mg a day. She forgot to come in for her labs a month later and now she returns for a three-month followup and clinically is feeling much better. Palpitations and tremors have resolved. Her energy is better. She still has heat intolerance. No nervousness or irritability. Pretty much back to her normal self. No hypothyroid symptoms. She is scheduled for cataract surgery at the end of the month. It has been a tough transition for her. Both of her boys are out of the house, and she is still thinking about moving south, maybe to [place]. She has some friends and family there. Current outpatient prescriptions ordered prior to encounter Medication Sig Dispense Refill ??? CIS Free Text Med - Garlic ??? ascorbic acid (VITAMIN C) 1,000 mg tablet ??? metoprolol succinate (TOPROL XL) 50 mg 24 hr tablet 50mg, PO, Twice daily ??? MV,Ca,Ewo-EC-Exfyap No.159 (ESTROVEN REGULAR STRENGTH) 400 mcg Tab ??? Evening [place] Oil 500 mg Cap Allergies Allergen Reactions ??? Iodine-iodine Containing CIS - Anaphylaxis, CIS - Anaphylaxis ??? Sulfa (Sulfonamide Antibiotics) CIS - Hives, CIS - Hives On physical exam, blood pressure 151/52, pulse 63, and weight 217 pounds. In general, she looks well. HEENT: Extraocular movements intact. No lid lag or stare. No periorbital edema. Her neck is supple. Her thyroid gland is generous, about 35 to 40 g, larger on the right than the left. No bruit. On neurologic exam, motor, strength, and tone are normal. There are no tremors. Skin is smooth and warm and dry. Psych: Mood and affect are appropriate. LABORATORY TESTS: 06/02/2010, T3 uptake 31% (normal 24-35), TSH 0.00, free T4 1.39 (normal 0.76-1.46), and total T3 188 (normal 60-181). IMPRESSION: Hyperthyroidism has responded well to methimazole, but she is still mildly hyperthyroid. Will increase the dose to 15 mg a day. She will get a TSH and T3 checked in a month. Then, I will see her in followup in three months and will check her thyroid function test in the quick draw lab on that day. PLAN: 1. Increase methimazole to 15 mg a day. 2. Check TSH and T3 in one month. 3. Follow up in three months with TSH and T3, T4, and T3 uptake in the quick draw lab. documented in this encounter Plan of Treatment Scheduled Orders Name Type Priority Associated Diagnoses Order S chedule TSH Lab Routine Hyperthyroidism Expected: , Expires: 06/09/2011 T3 Lab Routine Hyperthyroidism Expected: , Expires: 06/09/2011 documented as of this encounter Procedures Procedure Name Priority Date/Time Associated Diagnosis Comme nts FREE THYROXINE Routine 06/08/2010 11:23 Results f or this INDEX AM EDT procedure are i n the results section. T UPTAKE Routine 06/08/2010 11:23 Hyperthyroidism Results for this AM EDT procedure are i n the results section. TSH Routine 06/08/2010 11:23 Hyperthyroidism Results for this AM EDT procedure are i n the results section. T4 TOTAL Routine 06/08/2010 11:23 Hyperthyroidism Results for this AM EDT procedure are i n the results section. documented in this encounter Results T Uptake (11/18/2010 2:17 PM EDT) P athologist Signature T Uptake 1.14 0.80 - 1.30 CERNER ratio [facility] Comment: Tup assay is directly proportional to Th yroid binding protein concentration, thus FT4 Index = TT4/Tup. [place] Cord Blood Reference Range: ??0. 74-1.28. Specimen Anatomical Collection Method Collection Time Receive d Time (Source) Location / / Volume Laterality Blood specimen 11/18/2010 2:17 PM 011 2:29 (specimen) EDT PM EDT Kimberly Long MD CHEMISTRY ORDERABLES Performing Organization Address City/[facility]/[place] [address] [facility] ([facility] T4 (11/18/2010 2:17 PM EDT) athologist Signature T4, total 4.8 (L) 5.1 - 10.8 CERNER mcg/dL [facility] Comment: Reference Range: Cord Blood: ??6.9-14.4 mcg/dL Females: ??7.2-14.2 mcg/dL Pediatric ranges: ??Interpret with cauti on-ranges have not been verified Specimen Anatomical Collection Method Collection Time Receive d Time (Source) Location / / Volume Laterality Blood specimen 11/18/2010 2:17 PM 011 2:29 (specimen) EDT PM EDT Kimberly Long MD CHEMISTRY ORDERABLES Performing Organization Address City/[facility]/[place] [address] [facility] TSH (11/18/2010 2:17 PM EDT) athologist Signature TSH 3.95 0.27 - 4.20 CERNER mcIU/mL [facility] Specimen Anatomical Collection Method Collection Time Receive d Time (Source) Location / / Volume Laterality Blood specimen 11/18/2010 2:17 PM 011 2:29 (specimen) EDT PM EDT Kimberly Long MD CHEMISTRY ORDERABLES Performing Organization Address City/[facility]/[place] [address] [facility] T3 (11/18/2010 2:17 PM EDT) athologist Signature T3, Total 102 75 - 170 CERNER ng/dL [facility] Specimen Anatomical Collection Method Collection Time Receive d Time (Source) Location / / Volume Laterality Blood specimen 11/18/2010 2:17 PM 011 2:29 (specimen) EDT PM EDT Kimberly Long MD CHEMISTRY ORDERABLES Performing Organization Address City/[facility] Phon e Number [address] [facility] (ABNORMAL) REFLEX LAB-FREE THYROXINE INDEX (06/08/2010 11:23 AM EDT) athologist Signature FTI 10.9 (H) 4.5 - 9.5 CERNER mcg/dL [facility] Comment: Females: 5.5-10.5 mcg/ dL Specimen Anatomical Collection Method Collection Time Receive d Time (Source) Location / / Volume Laterality Blood specimen 06/08/2010 11:23 1 (specimen) AM EDT 11:37 AM EDT Kimberly Long MD CHEMISTRY ORDERABLES Performing Organization Address [facility] Phon e Number [address] [facility] T Uptake (06/08/2010 11:23 AM EDT) athologist Signature T Uptake 0.93 0.80 - 1.30 CERNER ratio [facility] Comment: Tup assay is directly proportional to Th yroid binding protein concentration, thus FT4 Index = TT4/Tup. [place] Cord Blood Reference Range: ??0. 74-1.28. Specimen Anatomical Collection Method Collection Time Receive d Time (Source) Location / / Volume Laterality Blood specimen 06/08/2010 11:23 1 (specimen) AM EDT 11:37 AM EDT Kimberly Long MD CHEMISTRY ORDERABLES Performing Organization Address [facility] [place] [address] [facility] T4 (06/08/2010 11:23 AM EDT) athologist Signature T4, total 10.1 5.1 - 10.8 CERNER mcg/dL [facility] Comment: Reference Range: [place] Cord Blood: ??6.9-14.4 mcg/dL Females: ??7.2-14.2 mcg/dL Pediatric ranges: ??Interpret with cauti on-ranges have not been verified Specimen Anatomical Collection Method Collection Time Receive d Time (Source) Location / / Volume Laterality Blood specimen 06/08/2010 11:23 1 (specimen) AM EDT 11:37 AM EDT Kimberly Long MD CHEMISTRY ORDERABLES Performing Organization Address City/[facility]/[place] [address] CERNER [facility] (ABNORMAL) TSH (06/08/2010 11:23 AM EDT) P athologist Signature TSH 0.01 (L) 0.27 - 4.20 CERNER mcIU/mL [facility] Specimen Anatomical Collection Method Collection Time Receive d Time (Source) Location / / Volume Laterality Blood specimen 06/08/2010 11:23 1 (specimen) AM EDT 11:37 AM EDT Kimberly Long MD CHEMISTRY ORDERABLES Performing Organization Address City/[facility]/[place] [address] CERNER [facility] documented in this encounter Visit Diagnoses Diagnosis Hyperthyroidism - Primary Thyrotoxicosis without mention of goiter or other cause, without mention of thyrotoxic crisis or storm documented in this encounter Care Teams Edge Setter Relationship Specialty Start Date End Date Tameka Riggs APRN PCP - General 06/08/10 08/01/15 documented as of this encounter
--- OUTSIDE RECORDS SUMMARY | 2021-12-16 18:48 | XMS_ITS | Encounter Summary ---
:1955 Author Organization [facility] Address [address] [place] [address] Care Team Providers Name Role Phone Unknown, Provider Primary Care Provider Encounter Details Date Type Department Care Team Description 04/20/2021 Lab Requisition [facility] Wilma Spears Enc ounter for general adult medical examination without abnormal findings; Pathology & DREDGE RUNNER Encounter for screening for malignant ne oplasm of cervix; Laboratory Medicine Compa RIDER DR Encounter for screening for human papill omavirus (HPV) - [place], [place] [address] [facility] [address] [place], [place] [phone] (Work) [phone] Social History Tobacco Use Types Packs/Day Years Used Date Smoking Tobacco: Never Assessed Sex Assigned at Date Recorded Not on file documented as of this encounter Plan of Treatment Not on filedocumented as of this encounter Procedures Procedure Name Priority Date/Time Associated Diagnosis Comme nts PAP TEST Today 04/19/2021 14:00 Encounter for general Re sults for this EDT adult medical procedure are in examination without the resu lts abnormal finding s section. Encounter for screening for malignant neoplasm of cervix Encounter for screening for human papillomavirus (HPV) HUMAN PAPILLOMAVIRUS Today 04/19/2021 14:00 Encounter for ge neral Results for this (HPV) DETECTION-HIGH EDT adult medical proced ure are in RISK TYPES examination without the resu lts abnormal finding s section. Encounter for screening for malignant neoplasm of cervix Encounter for screening for human papillomavirus (HPV) documented in this encounter Results HUMAN PAPILLOMAVIRUS (HPV) DETECTION-HIGH RISK TYPES (04/19/2021 14:00 EDT) [facility] Method Time Signature Human Negative Negative 04/28/2021 [facility] Papillomavirus 7:19 T CENTER (HPV) LABORATORY Detection-High SERVICES Types Comment: No E6 or E7 mRNA is detected fr om HPV types 16,18,31,33,35,39,45,51,52,56,58,59,66, and [address] mediated amplification. Specimen Anatomical Collection Method Collection Time Receive d Time (Source) Location / / Volume Laterality Pap Test (Cervix 04/19/2021 14:00 022 and/or EDT 13:35 EDT Endocervix) Wilma Spears DREDGE RUNNER MICROBIOLOGY - GENERAL ORDER MELYSSA Performing Organization Address City/State/ZIP Code Phon e Number [facility] [address] [place] [address] SERVICES PAP TEST (04/19/2021 14:00 EDT) Component Value Ref Test Analysis Performed At [facility] Range Method Time Signature Specimens A. Cervix and/or 04/28/2021 [facility] Endocervix , 7:19 [facility] ThinPrep Imaging LABORATORY System with SERVICES Manual Evaluation Specimen Satisfactory for 04/28/2021 [facility] Adequacy Evaluation - 7:19 [facility] transformation LABORATORY zone component SERVICES present General Negative for 04/28/2021 [facility] Categorization intraepithelial 7:19 [facility] lesion or LABORATORY malignancy SERVICES Attestation . 04/28/2021 [facility] Elect ronically 7:19 [facility] signed by LABORATORY Juliocesar, NICOLE Das(ASCP) o n 04/28/2021 at 0719 Clinical History See below 04/28/2021 [facility] 7:19 T CENTER LABORATORY SERVICES HPV The result for the Human Pap illomavirus (HPV) Detection-High Risk Types is Negative. No E6 or E7 mRNA is detected from HPV types 16,18,31,33,35,39,45,51,52,56,58,59,66, and [address] mediated 04/28/2021 [facility] amplification.Testing was pe rformed on specimen [id number] and was resulted on 04/28/2021 0716 EDT by MONIQUE, LAB INSTRUMENT RESULTS IN 7:19 [facility] LABORATORY SERVICES Performing Lab [facility] 04/28/2021 [facility] AL LAB 7:19 EDT CENTER LABORATORY SERVICES Scanned Images 04/28/2021 [facility] 7:19 EDT CENTER LABORATORY SERVICES Specimen Anatomical Collection Method Collection Time Receive d Time (Source) Location / / Volume Laterality Pap Test (Cervix 04/19/2021 14:00 03/16/2 022 and/or EDT 13:47 EDT Endocervix) Wilma PEREZ PATHOLOGY ORDERABLES Performing Organization Address City/State/ZIP Code Phon e Number [facility] [address] [place] [address] SERVICES documented in this encounter Visit Diagnoses Diagnosis Encounter for general adult medical exam ination without abnormal findings Unspecified general medical examination Encounter for screening for malignant ne oplasm of cervix Screening for malignant neoplasm of the cervix Encounter for screening for human papill omavirus (HPV) Special screening examination for human papillomavirus (HPV) documented in this encounter Care Teams Cobbler Upper Relationship Specialty Start Date End Date Unknown, Provider, PCP - General 06/24/10 documented as of this encounter
--- OUTSIDE RECORDS SUMMARY | 2021-12-16 18:48 | XMS_ITS | Clinical Summary ---
:1955 Author Organization [facility] Address [address] [place] [address] Care Team Providers Name Role Phone Unknown, Provider Primary Care Provider Social History Tobacco Use Types Packs/Day Years Used Date Smoking Tobacco: Never Assessed Sex Assigned at Date Recorded Not on file Plan of Treatment Health Maintenance Due Date Last Done Comments Hepatitis C Screen 1955 COVID-19 Vaccine (1) 1961 Fall Risk Screening 2021 Insurance Payer Benefit Plan / Subscriber ID Effective Dates Phone Addre ss Type Group [employer] [place] [facility] [place] [id number] 2019-Present [address] [place] [address] Care Teams Special Forces Engineer Sergeant Relationship Specialty Start Date End Date Unknown, Provider, PCP - General 06/24/10
--- OUTSIDE RECORDS SUMMARY | 2021-12-16 18:48 | XMS_ITS | Encounter Summary ---
:1955 Author Organization [facility] Address [address] [place] [address] Care Team Providers Name Role Phone Unknown, Provider Primary Care Provider Encounter Details Date Type Department Care Team Description 06/22/2010 Results Only [facility] Flako Riggs ARNP Laboratory Services - [address] [place], [place] [address] [phone] Social History Tobacco Use Types Packs/Day Years Used Date Smoking Tobacco: Never Assessed Sex Assigned at Date Recorded Not on file documented as of this encounter Plan of Treatment Not on filedocumented as of this encounter Procedures Procedure Name Priority Date/Time Associated Diagnosis Comme nts PAP TEST- RESULT Routine 06/22/2010 0:00 EDT Resu lts for this ONLY procedure are i n the results section. documented in this encounter Results PAP TEST- RESULT ONLY (06/22/2010 0:00 EDT) Component Value Ref Test Analysis Performed At [facility] Method Time Signature Pathology CYTOPATHOLOGY REPORT ? TOREY Report: ? [facility] Reports generated via electr onic interface contain original data; ? however they are lacking the format of the original report. ? Caution should be taken when reading/interpreting unformatted reports. ? Name: ? ASH LYLES ? Accession #: ? [id number] ? : ? 1955 (Age: 55) ??F ?Collect Date: ? 06/22/2010 ? Location: ? [facility] ? R eceive Date: ? 06/24/2010 ? Provider: ASH FISCHLER AR ASSET ANALYST ? Copy to: ? Final Report ? SPECIMEN ADEQUACY ? Satisfactory for Eval uation ? - transformation zone compon ent present ? GENERAL CATEGORIZATION ? Negative for Intraepi thelial Lesion or Malignancy ? Last Menstural Period: 2009 ? Specimen/Source: ??Pap Test, Cervix/Endocervix, ThinPrep Imaging System with ? manual evaluation ? Document reviewed and electr onically signed by: ? [employer] [place], [place] (ASCP) ? Report ??Date: 05/25/ 2011 09:37 ? HPV with Pap Test ? Date Ordered: ? 0 06/29/2010 ? Status: ?? Signed Out ?Date Complete: ? 07/04/2010 ? By: ??System Interface ? Date Reported: ? 07/04/2010 ? Interpretation ? RESULT: Negative for HPV typ es 16, 18, 31, 33, 35, 39, 45, 51, 52, ? 56, 58, 59, and 68. ? Comments ? Document reviewed and electr onically signed by: ? System Interface ? Report date: 05/30/20 11 ? By the signature above, the attending physician certifies that he/she has ? personally conducted a gross and/or microscopic examination of the described ? specimens and rendered or co nfirmed the above diagnosis. ? End of Report ? Specimen (Source) Anatomical Location Collection Method / Collectio n Time Received Time / Laterality Volume 06/22/2010 06/24/2010 Ash CERRATO PATHOLOGY ORDERABLES Performing Organization Address City/State/ZIP Code Phon e Number [facility] [address] [place] [address] SERVICES [facility] [address] [place] [address] documented in this encounter Visit Diagnoses Not on filedocumented in this encounter Care Teams Sole Filler Relationship Specialty Start Date End Date Unknown, Provider, PCP - General 06/24/10 documented as of this encounter
--- OUTSIDE RECORDS SUMMARY | 2021-12-16 18:48 | XMS_ITS | Encounter Summary ---
:1955 Author Organization [facility] [place] [address] Care Team Providers Name Role Phone Oneil Norman APRNTameka Primary Care Provider [phone] Reason for Visit Reason Onset Date Comments Medication Refill 06/02/2010 Encounter Details Date Type Department Care Team Description 06/02/2010 Refill Endocrinology at [facility] C Kimberly Long, Hyperthyroidism [facility] [place] [address] [facility] [phone] ENDOCRINOLOGY DE PT. [place], [place] [address] (Wo rk) Social History Tobacco Use Types Packs/Day Years Used Date Never Assessed Sex Assigned at Date Recorded Not on file documented as of this encounter Miscellaneous Notes Telephone Encounter - Andria Alarcon LPN - 06/02/2010 12:39 PM EDT Patient calls she has lost letter dated 03/2010 with Rx for MMI and lab slip. Has been taking two 5 mg tablets of MMI and is now out. Rx prepared to be faxed to [facility] Lab slip faxed to [facility] documented in this encounter Plan of Treatment Not on filedocumented as of this encounter Visit Diagnoses Diagnosis Hyperthyroidism Thyrotoxicosis without mention of goiter or other cause, without mention of thyrotoxic crisis or storm documented in this encounter Care Teams Health Safety Coordinator Relationship Specialty Start Date End Date Tameka Riggs APRN PCP - General 06/08/10 08/01/15 documented as of this encounter
--- OUTSIDE RECORDS SUMMARY | 2021-12-16 18:48 | XMS_ITS | Encounter Summary ---
:1955 Author Organization [facility] [place] [address] Care Team Providers Name Role Phone Wendijaja Norman WILLYTameka Primary Care Provider [phone] Encounter Details Date Type Department Care Team Description 05/25/2011 Office Visit Endocrinology at [facility] Ozzy Purcell (Primary Dx) [place] [address] CENTER [phone] [place] [address] Social History Tobacco Use Types Packs/Day Years Used Date Never Smoker Alcohol Use Standard Drinks/Week Comments Not Asked 0 (1 standard drink = 0.6 oz pure alcoho l) Sex Assigned at Date Recorded Not on file documented as of this encounter Last Filed Vital Signs Vital Sign Reading Time Taken Comments Blood Pressure 105/60 05/25/2011 3:11 PM EDT Pulse 53 05/25/2011 3:11 PM EDT Temperature - - Respiratory Rate - - Oxygen Saturation 93% 05/25/2011 3:11 PM EDT Inhaled Oxygen Concentration - - Weight 95.7 kg (211 lb) 05/25/2011 3:11 PM EDT Height 170.2 cm (5' 7) 05/25/2011 3:11 PM EDT Body Mass Index 33.05 05/25/2011 3:11 PM EDT documented in this encounter Patient Instructions Patient InstructionsKimberly Long MD - 05/25/2011 3:19 PM EDT Recent Results (from the past 24 hour(s)) TSH Component Value Range ??? TSH 2.38 0.27 - 4.20 (mcIU/mL) T3 Component Value Range ??? T3, Total 102 75 - 170 (ng/dL) Lower methimazole 5 mg daily Check TSH in 2 months at local lab F/U in 6 months documented in this encounter Progress Notes Kimberly Long MD - 05/25/2011 3:45 PM EDT PRIMARY CARE PROVIDER: Tameka Riggs M.D. Tameka is here for followup for Graves' disease, it was diagnosed in 2002. She was on antithyroid drugs from 2002 to 2009. We stopped her methimazole, and within six months, she had a recurrence and we restarted methimazole at 20 mg per day. We tapered it down to 10 mg a day. She is noticing some fatigue and occasional dry eyes. No cold intolerance, constipation, myalgias, change in her skin, hair, or mood, and no hyperthyroid symptoms. 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 A single woman owning her own home. She is just finding it difficult sometimes to make ends meet. [place], but for now she is here. She will continue follow up here. Current outpatient prescriptions ordered prior to encounter Medication Sig Dispense Refill ??? chlorthalidone (HYGROTEN) 25 mg tablet Take 25 mg by mouth daily. ??? metoprolol succinate (TOPROL XL) 100 mg XL tablet Take 1 tablet by mouth 2 times daily. 30 tablet ??? UNABLE TO FIND Take 1 tablet by mouth daily. HistoPlex-AB ??? UNABLE TO FIND Take 1 tablet by mouth daily. Bio-Immunozyme Forte ??? CIS Free Text Med - Garlic ??? ascorbic acid (VITAMIN C) 1,000 mg tablet ??? Evening [place] Oil 500 mg Cap Allergies Allergen Reactions ??? Iodine-iodine Containing CIS - Anaphylaxis, CIS - Anaphylaxis ??? Sulfa (Sulfonamide Antibiotics) CIS - Hives, CIS - Hives Patient Active Problem List Diagnoses Code ??? CIS - Graves' disease on methimazole ??? Osteoarthritis 715.90AN On physical, blood pressure 105/60, pulse 53, weight 211 pounds, and height 5 feet 7 inches. In general, she looks well. HEENT: Extraocular movements intact. No lid lag or stare. No periorbital edema. Her neck is supple. Her thyroid gland is generous about 30 g larger on the right than the left, mobile, and nontender. Lymph nodes: No adenopathy of the neck. Skin: Smooth, warm, and dry. On neurologic exam, motor strength and tone are normal. There is no tremor. LABORATORY TESTS: TSH 2.38 and T3 102. IMPRESSION: Graves' disease on methimazole 10 mg a day. TSH is in the upper range of normal. We will lower the dose to 5 mg a day. Have her check her TSH in two months, and if she is euthyroid, we will see her in follow up in six months with TSH in the quick draw lab. PLAN: 1. Decrease methimazole to 5 mg a day. 2. Check TSH in two months. 3. Follow up in six months with TSH in the quick draw lab. documented in this encounter Plan of Treatment Not on filedocumented as of this encounter Procedures Procedure Name Priority Date/Time Associated Diagnosis Comme nts T3 TOTAL Routine 05/25/2011 2:15 PM Hyperthyroidism Result s for this EDT procedure are i n the results section . TSH SANTY 05/25/2011 2:15 PM Hyperthyroidism Result s for this EDT procedure are i n the results section . documented in this encounter Results TSH (11/30/2011 2:27 PM EDT) P athologist Signature TSH 1.88 0.27 - 4.20 CERNER mcIU/mL MILLENNIUM Specimen Anatomical Collection Method Collection Time Receive d Time (Source) Location / / Volume Laterality Blood specimen 11/30/2011 2:27 PM 012 2:33 (specimen) EDT PM EDT Resulting Agency Comment Spec In Lab Kimberly Long MD CHEMISTRY ORDERABLES Performing Organization Address City/State/ZIP Code Phon e Number [address] CERNER MILLENNIUM T3 (05/25/2011 2:15 PM EDT) P athologist Signature T3, Total 102 75 - 170 CERNER ng/dL MILLENNIUM Specimen Anatomical Collection Method Collection Time Receive d Time (Source) Location / / Volume Laterality Blood specimen 05/25/2011 2:15 PM 012 2:23 (specimen) EDT PM EDT Resulting Agency Comment Spec In Lab Kimberly Long MD CHEMISTRY ORDERABLES Performing Organization Address City/[facility]/ZIP Code Phon e Number [address] CERNER MILLENNIUM TSH (05/25/2011 2:15 PM EDT) athologist Signature TSH 2.38 0.27 - 4.20 CERNER mcIU/mL MILLENNIUM Specimen Anatomical Collection Method Collection Time Receive d Time (Source) Location / / Volume Laterality Blood specimen 05/25/2011 2:15 PM 012 2:23 (specimen) EDT PM EDT Resulting Agency Comment Spec In Lab Kimberly Long MD CHEMISTRY ORDERABLES Performing Organization Address City/[facility]/ZIP Code Phon e Number [address] [facility] documented in this encounter Visit Diagnoses Diagnosis Hyperthyroidism - Primary Thyrotoxicosis without mention of goiter or other cause, without mention of thyrotoxic crisis or storm documented in this encounter Care Teams Superintendent Oil Field Drilling Relationship Specialty Start Date End Date Taemka Riggs APRN PCP - General 06/08/10 08/01/15 documented as of this encounter
--- OUTSIDE RECORDS SUMMARY | 2021-12-16 18:48 | XMS_ITS | Encounter Summary ---
:1955 Author Organization [facility] [place] [address] Care Team Providers Name Role Phone Phyliciatana WILLY Norman Nicole Primary Care Provider [phone] Reason for Visit Reason Onset Date Comments Other 07/20/2010 Encounter Details Date Type Department Care Team Description 07/20/2010 Telephone Endocrinology at [facility] C Kimberly Long, Other [facility] [place] [address] [facility] [phone] ENDOCRINOLOGY [place], [place] 0[address] (Wo rk) Social History Tobacco Use Types Packs/Day Years Used Date Never Smoker Alcohol Use Standard Drinks/Week Comments Not Asked 0 (1 standard drink = 0.6 oz pure alcoho l) Sex Assigned at Date Recorded Not on file documented as of this encounter Miscellaneous Notes Telephone Encounter - Andria Alarcon LPN - 08/04/2010 2:38 PM EDT Returning call to Nola Andres at which time the following message from Dr Banks was left on her voiceand also to return my call should they have any further questions. Telephone Encounter - Reno Banks MD - 07/21/2010 5:54 PM EDT She was in reasonable control in June and her medication (methimazole) was increased from 10 to 15 mg. She should be fine for her tooth extraction. Thyroid storm would only Be precipitated by infection. Telephone Encounter - Andria Alarcon LPN - 07/20/2010 1:[address] Laguerre calls I know this patient has a h/o thyroid storm. I want to be sure that I am not going to cause any problem when I do an extraction of a wisdom tooth. He ask that when we call back we speak with Nola Andres. He was told that Dr Long is out on leave will forward to D.O.C. documented in this encounter Plan of Treatment Not on filedocumented as of this encounter Visit Diagnoses Not on filedocumented in this encounter Care Teams Lan Engineer Relationship Specialty Start Date End Date Tameka Riggs APRN PCP - General 06/08/10 08/01/15 documented as of this encounter
--- OUTSIDE RECORDS SUMMARY | 2021-12-16 18:48 | XMS_ITS | Encounter Summary ---
:1955 [address] [facility] [place] [address] Care Team Providers Name Role Phone Mookie Kebede MD Primary Care Provider Reason for Visit Reason Onset Date Comments Labs Only 05/30/2010 Encounter Details Date Type Department Care Team Description 05/30/2010 Telephone Endocrinology at [facility] C Kimberly Long, Labs Only [facility] [place] [address] [facility] [phone] ENDOCRINOLOGY DE PT. [place], [place] [address] (Wo rk) Social History Tobacco Use Types Packs/Day Years Used Date Never Assessed Sex Assigned at Date Recorded Not on file documented as of this encounter Miscellaneous Notes Telephone Encounter - Kimberly Long MD - 05/30/2010 1:08 PM EDT Lab documented in this encounter Plan of Treatment Not on filedocumented as of this encounter Results T Uptake (06/08/2010 11:23 AM EDT) P athologist Signature T Uptake 0.93 0.80 - 1.30 CERNER ratio MILLENNIUM Comment: Tup assay is directly proportional to Th yroid binding protein concentration, thus FT4 Index = TT4/Tup. [place] Blood Reference Range: ??0. 74-1.28. Specimen Anatomical Collection Method Collection Time Receive d Time (Source) Location / / Volume Laterality Blood specimen 06/08/2010 11:23 1 (specimen) AM EDT 11:37 AM EDT Kimberly Long MD CHEMISTRY ORDERABLES Performing Organization Address City/[facility]/ZIP [place] [address] CERBANNER MILLENNIUM T4 (06/08/2010 11:23 AM EDT) P athologist Signature T4, total 10.1 5.1 - 10.8 CERNER mcg/dL [facility] Comment: Reference Range: [place] Blood: ??6.9-14.4 mcg/dL Females: ??7.2-14.2 mcg/dL Pediatric ranges: ??Interpret with cauti on-ranges have not been verified Specimen Anatomical Collection Method Collection Time Receive d Time (Source) Location / / Volume Laterality Blood specimen 06/08/2010 11:23 1 (specimen) AM EDT 11:37 AM EDT Kimberly Long MD CHEMISTRY ORDERABLES Performing Organization Address City/[facility]/ZIP Code Phon e Number [address] [facility] (ABNORMAL) TSH (06/08/2010 11:23 AM EDT) athologist Signature TSH 0.01 (L) 0.27 - 4.20 CERNER mcIU/mL [facility] Specimen Anatomical Collection Method Collection Time Receive d Time (Source) Location / / Volume Laterality Blood specimen 06/08/2010 11:23 1 (specimen) AM EDT 11:37 AM EDT Kimberly Long MD CHEMISTRY ORDERABLES Performing Organization Address City/[facility]/ZIP [place] [address] [facility] documented in this encounter Visit Diagnoses Diagnosis Hyperthyroidism - Primary Thyrotoxicosis without mention of goiter or other cause, without mention of thyrotoxic crisis or storm documented in this encounter Care Teams Manager Strategic Partnerships Relationship Specialty Start Date End Date Mookie Kebede MD PCP - General 12/28/09 06/07/10 [address] [place] [place] [id number] documented as of this encounter
--- OUTSIDE RECORDS SUMMARY | 2021-12-16 18:48 | XMS_ITS | Encounter Summary ---
:1955 Author Organization [facility] Address [address] [place] [address] Care Team Providers Name Role Phone Unknown, Provider Primary Care Provider Encounter Details Date Type Department Care Team Description 04/01/2019 Lab Requisition [facility] Mansi Beltre Unsp ecified acute appendicitis; Pathology & M, DO Sepsis, unspecified organism (HCC-CMS); Laboratory Medicine [address] Thyrotox icosis with diffuse goiter without thyrotoxic crisis or storm; - [address] Essential (primary) hypertension; [address] [facility] [place], Body mass index (bmi) 36.0-3 6.9, adult; [place] [address] [place] [address] Encounter for prophylactic measures, uns pecified; [phone] Acute appendici tis with perforation and localized peritonitis, without abscess (Work) Social History Tobacco Use Types Packs/Day Years Used Date Smoking Tobacco: Never Assessed Sex Assigned at Date Recorded Not on file documented as of this encounter Plan of Treatment Not on filedocumented as of this encounter Procedures Procedure Name Priority Date/Time Associated Diagnosis Comme nts SURGICAL PATHOLOGY Today 03/30/2019 14:45 Unspecified acute Results for this EST appendicitis procedure are in Sepsis, unspecified the resu lts organism (HCC-CM S) section. Thyrotoxicosis with diffuse goiter without thyrotoxic crisis or storm Essential (primary) hypertension Body mass index (bmi) 36.0-36.9, adult Encounter for prophylactic measures, unspec ified Acute appendicitis with perforation and localized peritonitis, without abscess documented in this encounter Results SURGICAL PATHOLOGY (03/30/2019 14:45 EST) Component Value Ref Test Analysis Performed At Patholo gist Range Method Time Signature Final A. APPENDIX, APPENDECTOMY: 04/02/2019 [facility] Electronically Diagnosis - Severe acute suppurative appendicitis and periappend icitis. 13:58 EST CENTER signed by mic LABORATORY Chantel Van MD SERVICES on 04/02/19 at 1358 Clinical Appendicitis 04/02/2019 [facility] History 13:58 [facility] SERVICES Attestation By the signature 04/02/2019 [facility] Electronically below, the 13:58 EST CENTER signed by Vance attending LABORATORY Chantel Van MD physician SERVICES on 04/02/19 at certifies that 1358 they have 1) personally conducted a gross and/or microscopic examination of the described specimen(s), and/or personally interpreted the results of laboratory testing of the described specimen(s), and 2) personally rendered or confirmed the above diagnosis. Gross A. Received in formalin labe lled with proper patient identification (initials B, N) and appendix +contents is a 6.0 cm in length appendix stapled along its margin. The appendiceal surface is smooth, i 04/02/2019 [facility] Description ntact to ragged. Received de tached within the same container are irregular portions of periappendiceal adipose tissue aggregating 3.8 x 3.2 x 2.0 cm. The tissue surfaces are dusky brown yellow and show 13:58 EST CENTER dusky harley areas suggested o f exudate coating. Sections through 1 of these tissues show a hemorrhagic appendiceal wall tissue measuring up to 0.8 cm in length, suggestive of perforated tip. The appendix LABORATORY ranges from 0.6 to 0 0.9 cm in diameter. Sections through the longer appendiceal segment show a hemorrhagic wall ranging from 0.2 to 0.4 cm in thickness. The lumen contains minimal bloody fluid. A feca SERVICES lith is not identified. Fermenting Cellars Supervisor sections are submitte d as follows: BLOCK NARAYANAN A1- appendiceal margin, en f bettie and presumed appendiceal tip for detached tissue A2- patient service representative sections mid appendix Allie Augustin 04/01/2019 10:40 Scanned Images 04/02/2019 [facility] 13:58 [facility] LABORATORY SERVICES Specimen Anatomical Collection Method Collection Time Receive d Time (Source) Location / / Volume Laterality Tissue ENTIRE APPENDIX / 03/30/2019 14:45 2019 8:28 Unknown EST EST Narrative This result has an attachment that is no t available. Mansi Beltre DO PATHOLOGY ORDERABLES Performing Organization Address City/State/ZIP Code Phon e Number [facility] [address] [place] [address] SERVICES documented in this encounter Visit Diagnoses Diagnosis Unspecified acute appendicitis Sepsis, unspecified organism (HCC) Thyrotoxicosis with diffuse goiter witho ut thyrotoxic crisis or storm Essential (primary) hypertension Unspecified essential hypertension Body mass index (bmi) 36.0-36.9, adult Encounter for prophylactic measures, uns pecified Acute appendicitis with perforation and localized peritonitis, without abscess documented in this encounter Care Teams Wine Cellar Worker Relationship Specialty Start Date End Date Unknown, Provider, PCP - General 06/24/10 documented as of this encounter
--- OUTSIDE RECORDS SUMMARY | 2021-12-16 18:48 | XMS_ITS | Encounter Summary ---
:1955 Author Organization [facility] [place] [address] Care Team Providers Name Role Phone Oneil Norman APRNEllisle Primary Care Provider [phone] Reason for Visit Reason Comments Graves' Disease Encounter Details Date Type Department Care Team Description 11/18/2010 Office Visit Endocrinology at [facility] Ema Stanford [facility] Ozzy Purcell (Primary Dx) [place] [address] CENTER [phone] [place] [address] Social History Tobacco Use Types Packs/Day Years Used Date Never Smoker Alcohol Use Standard Drinks/Week Comments Not Asked 0 (1 standard drink = 0.6 oz pure alcoho l) Sex Assigned at Date Recorded Not on file documented as of this encounter Last Filed Vital Signs Vital Sign Reading Time Taken Comments Blood Pressure 132/54 11/18/2010 2:43 PM EDT Pulse 56 11/18/2010 2:43 PM EDT Temperature - - Respiratory Rate - - Oxygen Saturation - - Inhaled Oxygen Concentration - - Weight 98 kg (216 lb) 11/18/2010 2:43 PM EDT Height 168.9 cm (5' 6.5) 11/18/2010 2:43 PM EDT Body Mass Index 34.34 11/18/2010 2:43 PM EDT documented in this encounter Patient Instructions Patient InstructionsKimberly Long MD - 11/18/2010 2:53 PM EDT I'll let you know the results of the lab tests Continue methimazole 15 mg/day F/u in 6 months documented in this encounter Progress Notes Kimberly Long MD - 11/18/2010 3:16 PM EDT OFFICE NOTE DATE OF DICTATION: 11/18/2010 DATE OF : 1955 PRIMARY CARE PROVIDER: Tameka Riggs APRN Tameka is here for followup of her Graves disease which was diagnosed in 2002. She was on antithyroid drugs from 2002 to 2009. Finally, doses of methimazole was low and TSH was in the upper limit of normal, so we elected to stop the medications to see if she achieved a remission but within six months she became hyperthyroid again in 03/2010 with a T4 of 16.6 and a T3 of 474. We restarted her methimazole, and she is now on 15 mg a day. She has occasional palpitations and some fatigue but no other symptoms of hyper or hypothyroidism. Denies nervousness; irritability; tremor; heat intolerance; change in her weight, hair, skin, mood, or bowels; myalgias; arthralgias; cold intolerance; or constipation. She is noticing a little bit of dry eyes. On physical exam, blood pressure 132/54, pulse 56, weight 97.9 kg, and height 168.9 cm. In general, she looks well. HEENT: Extraocular movements intact. No lid lag or stare. No periorbital edema. Her neck is supple. There is no adenopathy. Her thyroid gland is about 30 g, larger on the right than the left, and the right lobe is somewhat firm. It is mobile and nontender. No bruits. Skin is smooth and warm and dry. Motor strength and tone are normal. There is no tremor. Laboratory tests are pending. IMPRESSION: Graves disease, on methimazole 15 mg a day. Clinically, she looks euthyroid. We will await her thyroid hormone levels and adjust the methimazole based on that, and then we will see her in followup in six months and get TSH and T3 in the quick draw lab. PLAN: She will use liquid tears or ointment for the dry eyes. Results for orders placed in visit on 11/18/10 (from the past 72 hour(s)) T3 Component Value Range ??? T3, Total 102 75 - 170 (ng/dL) TSH Component Value Range ??? TSH 3.95 0.27 - 4.20 (mcIU/mL) T4 Component Value Range ??? T4, total 4.8 (*) 5.1 - 10.8 (mcg/dL) T UPTAKE Component Value Range ??? T Uptake 1.14 0.80 - 1.30 (ratio) FREE THYROXINE INDEX Component Value Range ??? FTI 4.2 (*) 4.5 - 9.5 (mcg/dL) documented in this encounter Plan of Treatment Not on filedocumented as of this encounter Procedures Procedure Name Priority Date/Time Associated Diagnosis Comme nts FREE THYROXINE SANTY 11/18/2010 2:17 PM Results for this INDEX EDT procedure are i n the results section. T3 TOTAL SANTY 11/18/2010 2:17 PM Hyperthyroidism Result s for this EDT procedure are i n the results section. T UPTAKE SANTY 11/18/2010 2:17 PM Hyperthyroidism Result s for this EDT procedure are i n the results section. TSH SANTY 11/18/2010 2:17 PM Hyperthyroidism Result s for this EDT procedure are i n the results section. T4 TOTAL SANTY 11/18/2010 2:17 PM Hyperthyroidism Result s for this EDT procedure are i n the results section. documented in this encounter Results T3 (05/25/2011 2:15 PM EDT) P athologist Signature T3, Total 102 75 - 170 CERNER ng/dL [facility] Specimen Anatomical Collection Method Collection Time Receive d Time (Source) Location / / Volume Laterality Blood specimen 05/25/2011 2:15 PM 012 2:23 (specimen) EDT PM EDT Resulting Agency Comment Spec In Lab Kimberly Long MD CHEMISTRY ORDERABLES Performing Organization Address City/State/ZIP Code Phon e Number [place] [id number] [facility] TSH (05/25/2011 2:15 PM EDT) athologist Signature TSH 2.38 0.27 - 4.20 CERNER mcIU/mL [facility] Specimen Anatomical Collection Method Collection Time Receive d Time (Source) Location / / Volume Laterality Blood specimen 05/25/2011 2:15 PM 012 2:23 (specimen) EDT PM EDT Resulting Agency Comment Spec In Lab Kimberly Long MD CHEMISTRY ORDERABLES Performing Organization Address City/State/ZIP Code Phon e Number [address] [facility] (ABNORMAL) FREE THYROXINE INDEX (11/18/2010 2:17 PM EDT) athologist Signature FTI 4.2 (L) 4.5 - 9.5 CERNER mcg/dL [facility] Comment: Females: 5.5-10.5 mcg/ dL Specimen Anatomical Collection Method Collection Time Receive d Time (Source) Location / / Volume Laterality Blood specimen 11/18/2010 2:17 PM 011 2:29 (specimen) EDT PM EDT Kimberly Long MD CHEMISTRY ORDERABLES Performing Organization Address City/[facility]/ZIP Code Phon e Number [address] [facility] T Uptake (11/18/2010 2:17 PM EDT) athologist Signature T Uptake 1.14 0.80 - 1.30 CERNER ratio [facility] Comment: Tup assay is directly proportional to Th yroid binding protein concentration, thus FT4 Index = TT4/Tup. Cord Blood Reference Range: ??0. 74-1.28. Specimen Anatomical Collection Method Collection Time Receive d Time (Source) Location / / Volume Laterality Blood specimen 11/18/2010 2:17 PM 011 2:29 (specimen) EDT PM EDT Kimberly Long MD CHEMISTRY ORDERABLES Performing Organization Address City/State/[id number] [facility] (ABNORMAL) T4 (11/18/2010 2:17 PM EDT) athologist Signature T4, total 4.8 (L) 5.1 - 10.8 CERNER mcg/dL [facility] Comment: Reference Range: Cord Blood: ??6.9-14.4 mcg/dL Females: ??7.2-14.2 mcg/dL Pediatric ranges: ??Interpret with cauti on-ranges have not been verified Specimen Anatomical Collection Method Collection Time Receive d Time (Source) Location / / Volume Laterality Blood specimen 11/18/2010 2:17 PM 011 2:29 (specimen) EDT PM EDT Kimberly Long MD CHEMISTRY ORDERABLES Performing Organization Address City/[facility]/[id number] [facility] TSH (11/18/2010 2:17 PM EDT) athologist Signature TSH 3.95 0.27 - 4.20 CERNER mcIU/mL [facility] Specimen Anatomical Collection Method Collection Time Receive d Time (Source) Location / / Volume Laterality Blood specimen 11/18/2010 2:17 PM 011 2:29 (specimen) EDT PM EDT Kimberly Long MD CHEMISTRY ORDERABLES Performing Organization Address City/[facility]/ZIP Code Phon e Number [place] [phone] [facility] T3 (11/18/2010 2:17 PM EDT) athologist Signature T3, Total 102 75 - 170 CERNER ng/dL [facility] Specimen Anatomical Collection Method Collection Time Receive d Time (Source) Location / / Volume Laterality Blood specimen 11/18/2010 2:17 PM 011 2:29 (specimen) EDT PM EDT Kimberly Long MD CHEMISTRY ORDERABLES Performing Organization Address City/[facility]/[place] [address] [facility] documented in this encounter Visit Diagnoses Diagnosis Hyperthyroidism - Primary Thyrotoxicosis without mention of goiter or other cause, without mention of thyrotoxic crisis or storm documented in this encounter Care Teams Vault Service Mechanic Relationship Specialty Start Date End Date Tameka Riggs APRN PCP - General 06/08/10 08/01/15 documented as of this encounter
[2021-12-16 19:46] LABS: ESR 21 mm/hr (0-30)
[2021-12-16 19:56] LABS: C-Reactive Protein 0.18 mg/dL (0.0-0.3)
[2021-12-18 17:49] LABS: Rheumatoid Factor <8.6 IU/mL (<12.0)
[2021-12-19 13:49] LABS: ANA Interpretation Negative (Negative)
== END 2021-12-16 18:36 | disposition home or self-care (01) ==
LOC: NCHCN 18:35
PROVIDERS: PCP Nurse Practitioner Family; Visit Provider Nurse Practitioner Family
DX: M25.50 Pain in unspecified joint (principal); Z82.61 Family history of arthritis; M54.59 Other low back pain
CPT/HCPCS: 85652; 86038; 86140; 86431

== ENCOUNTER 2022-04-27 17:24 | Outpatient (REF) | payer MEDICARE, SELFPAY ==
[2022-04-27 22:04] LABS: HCT 42.6 % (36.0-46.0); HGB 14.3 g/dL (11.2-15.7); MCH 31.6 pg (27.0-33.0); MCHC 33.6 % (32.0-36.0); MCV 94 fL (80-95); MPV 10.4 fL (8.0-11.0); Platelet Count 318 10^3/uL (130-400); RBC 4.53 10^6/uL (3.93-5.22); RDW 13.1 % (11.7-14.6); RDW-SD 45.1 fL; WBC 8.06 10^3/uL (4.4-10.8)
[2022-04-27 22:21] LABS: ALT 28 U/L (14-59); AST 19 U/L (15-37); Alkaline Phosphatase 137 U/L (46-116); Anion Gap 6.3 mmol/L (3-11); BUN 16 mg/dL (7-18); Bilirubin, Total 0.3 mg/dL (0.2-1.0); CO2 29.7 mmol/L (21.0-32.0); CREATININE 0.9 mg/dL (0.55-1.02); Calcium 9.6 mg/dL (8.5-10.1); Chloride 102 mmol/L (98-107); Estimated GFR 70.51 (mL/min/1.73m2); Glucose 89 mg/dL (74-106); Potassium 3.8 mmol/L (3.5-5.1); Sodium 138 mmol/L (136-145); T4 8.6 ug/dL (4.7-13.3); TSH 0.95 uIU/mL (0.36-3.74); Total Protein 7.3 g/dL (6.4-8.2)
[2022-04-28 19:37] LABS: T3, Total 134 ng/dL (97-169)
== END 2022-04-27 17:25 | disposition home or self-care (01) ==
LOC: NCHCN 17:24
PROVIDERS: PCP Nurse Practitioner Family; Visit Provider Nurse Practitioner Family
DX: E05.00 Thyrotoxicosis with diffuse goiter without thyrotoxic crisis or storm (principal); Z00.00 Encounter for general adult medical examination without abnormal findings; I10 Essential (primary) hypertension; F41.9 Anxiety disorder, unspecified; Z68.41 Body mass index [BMI] 40.0-44.9, adult
CPT/HCPCS: 80053; 85027; 84436; 84443; 84480

== ENCOUNTER 2022-11-02 18:36 | Outpatient (REF) | payer MEDICARE, SELFPAY ==
--- OUTSIDE RECORDS SUMMARY | 2022-11-02 18:39 | XMS_ITS | Continuity of Care Document ---
Author Name Unknown Organization [facility] Address [address] [place] [phone] Care Team Providers Care Wound Care Nurse Name Role Phone Alberto RINCON, Nola Primary Care Physician Encounter [facility] NBR [id number] Date(s): 10/04/22 - 10/04/[address] [address] Discharge Disposition: Home Patient Care team information Care Team Personnel Name: Nola Dominguez MD Position: Physician Member Role: Primary Care Physician Address: Address: [address] [place] [phone]
--- OUTSIDE RECORDS SUMMARY | 2022-11-02 18:39 | XMS_ITS | Continuity of Care Document ---
Author Name Unknown Organization [facility] Address [address] [place] [id number] Care Team Providers Care Ship Engineer Name Role Phone Alberto RINCON, Nola Primary Care Physician [phone] Encounter [facility] NBR [id number] Date(s): 08/09/22 - 08/09/[address] [address] Discharge Disposition: Home or Self Care Attending Physician: Nola Dominguez MD Admitting Physician: Nola Dominguez MD Referring Physician: Nola Dominguez MD Patient Care team information Care Team Personnel Name: Nola Dominguez MD Position: Physician Member Role: Primary Care Physician Address: Address: [address] [place] [phone]
[2022-11-02 18:43] LABS: HCT 40.1 % (36.0-46.0); HGB 13.3 g/dL (11.2-15.7); MCH 31.2 pg (27.0-33.0); MCHC 33.2 % (32.0-36.0); MCV 94 fL (80-95); MPV 9.4 fL (8.0-11.0); Platelet Count 311 10^3/uL (130-400); RBC 4.26 10^6/uL (3.93-5.22); RDW 12.8 % (11.7-14.6); RDW-SD 44.2 fL; WBC 8.57 10^3/uL (4.4-10.8)
[2022-11-02 19:09] LABS: Anion Gap 10.7 mmol/L (3-11); BUN 13 mg/dL (7-18); CO2 24.3 mmol/L (21.0-32.0); CREATININE 0.7 mg/dL (0.55-1.02); Calcium 9.5 mg/dL (8.5-10.1); Chloride 103 mmol/L (98-107); Estimated GFR 95.32 (mL/min/1.73m2); FREE T4 0.89 ng/dL (0.76-1.46); Glucose 103 mg/dL (74-106); Sodium 138 mmol/L (136-145); TSH 1.97 uIU/mL (0.36-3.74)
== END 2022-11-02 18:37 | disposition home or self-care (01) ==
LOC: NCHCN 18:36
PROVIDERS: PCP Nurse Practitioner Family; Visit Provider Nurse Practitioner Family
DX: E05.00 Thyrotoxicosis with diffuse goiter without thyrotoxic crisis or storm (principal); R00.2 Palpitations; R53.83 Other fatigue
CPT/HCPCS: 80048; 85027; 84439; 84443

== ENCOUNTER 2023-11-20 16:13 | Outpatient (REF) | payer MEDICARE, SELFPAY ==
--- OUTSIDE RECORDS SUMMARY | 2023-11-20 16:15 | XMS_ITS ---
Author Organization Unknown ALLERGIES AND ADVERSE REACTIONS No information ASSESSMENT No information CHIEF COMPLAINT No information MEDICATIONS No information OBJECTIVE DATA No information PHYSICAL EXAMINATION No information TREATMENT PLAN Planned Care Start Date Provider Encounter for Check-up [id number] PROBLEMS No information RESULTS No information REVIEW OF SYSTEMS No information SUBJECTIVE DATA No information VITAL SIGNS No information
--- OUTSIDE RECORDS SUMMARY | 2023-11-20 16:15 | XMS_ITS | Encounter Summary ---
[place] [address] Care Team Providers Care Communications And Signals Supervisor Name Role Phone Ivet Huff WILLY Primary Care Provider [phone] Encounter Details Date Type Department Care Team (Late st Contact Info) Description 03/23/2016 Telephone [place] [phone] Andria Alarcon LPN Social History Tobacco Use Types Packs/Day Years Used Date Smoking Tobacco: Never Alcohol Use Standard Drinks/Week Comments Not Asked 0 (1 standard drink = 0.6 oz pur e alcohol) Sex and Gender Information Value Date Recorded Sex Assigned at Not on file Gender Identity Not on file Sexual Orientation Not on file documented as of this encounter Miscellaneous Notes * Telephone Encounter - Andria Alacron LPN - 03/28/2016 8:46 AM EST Call from patient who states she would rather not have to come to [facility] if she does not have to. Patient will contact PCP to ask if she is willing to monitor thyroid and prescribe medication and then call back to let us know. * Telephone Encounter - Andria Alarcon LPN - 03/23/2016 3:30 PM EST Rx request received for MMI 5 mg. Patient last seen 07/15/[address] Mir who has retired. Called patient. No answer. Message left on home v/m for patient to r/c to nurse. Labs scanned into edh that were done on 08/02/15 documented in this encounter Plan of Treatment Not on file documented as of this encounter Visit Diagnoses Not on filedocumented in this encounter Care Teams Communications And Signals Supervisor Relationship Specialty Start Date End Date Ivet Huff APRN [address] [place] [address] PCP - General Family Medicine 08/02/15 08/26/18 documented as of this encounter
--- OUTSIDE RECORDS SUMMARY | 2023-11-20 16:15 | XMS_ITS | Clinical Summary ---
Author Organization [facility] [place] [address] Care Team Providers Care Chip Unloader Name Role Phone Darcie Haque MD Primary Care Provider Allergies Active Allergy Reactions Criticality Noted Date Comments Iodine And Iodide Containing Products High Anaphylaxis Sulfa (Sulfonamide Antibiotics) Hives Evans 08/27/2018 Throat swelling and mouth sores Medications Medication Sig Dispensed Refills Start Date End Date Status methimazole (TAPAZOLE) 5 mg Tablet take 1 tablet by mouth once daily 90 tablet 3 03/23/2015 Active metoprolol (LOPRESSOR) 100 mg Tablet Take 50 mg by mouth 2 times daily. Active spironolactone (ALDACTONE) 25 mg Tablet Take 25 mg by mouth daily. Active nitroGLYcerin (NITROSTAT) 0.4 mg Tablet, Sublingual Place 0.4 mg under the tongue every 5 minutes as needed for Chest pain. Active VITAMIN A ORAL Take 2,400 mg by mouth daily. Active cyanocobalamin, vitamin B-12, (B-12 DOTS ORAL) Take 2,400 mg by mouth 2 times daily. Active Ascorbic Acid (VITAMIN C) 1,000 mg Tablet Sustained Release Take 1,000 mg by mouth daily. Active cholecalciferol, Vitamin D3, (D3-2000) 2,000 unit Capsule Take 2,000 Units by mouth daily. Active UNABLE TO FIND Lutein, Blueberry, Billberry complex 2 tablets daily Active vitamin E (VITAMIN E) 400 unit Capsule Take 400 Units by mouth daily. Active evening primrose oil (EVENING PRIMROSE ORAL) Take 1,000 mg by mouth 2 times daily. Active btgy-yklo-glc-yuc-w il-naila-hor [phone] mg Tablet Take 4 tablets by mouth 2 times daily. Active magnesium oxide (MAG-OX) 400 mg (241.3 mg magnesium) Tablet Take 400 mg by mouth daily. Active UNABLE TO FIND 250 mg. Valerian root with passion flower, 1 tablet nightly Active UNABLE TO FIND Aloe vera distilled juice 2 ounces twice a day Active UNABLE TO FIND Coloidal Silver 1 tablespoon daily Active Active Problems Problem Noted Date Diagnosed Date Family history of heart disease 08/27/2018 Hypertension 08/27/2018 Hyperlipidemia 08/27/2018 Palpitations 08/27/2018 Overview (08/27/2018): Loop recorder 2015- NSR and APCs Chest pain 08/27/2018 Overview (08/27/2018): Cath 1990s in [place]- normal cors Hyperthyroidism 07/13/2014 Osteoarthritis 06/08/2010 CIS [...] Types Packs/Day Years Used Date Smoking Tobacco: Former Cigarettes 0.5 15 Smokeless Tobacco: Never Comments:quit smoking 31 yea rs ago Alcohol Use Standard Drinks/Week Comments Not Asked 0 (1 standard drink = 0.6 oz pur e alcohol) Sex and Gender Information Value Date Recorded Sex Assigned at Not on file Gender Identity Not on file Sexual Orientation Not on file Last Filed Vital Signs Vital Sign Reading Time Taken Comments Blood Pressure 130/45 08/27/2018 1:56 PM EDT Pulse 53 08/27/2018 1:55 PM EDT per e kg Temperature 36.4 ??C (97.6 ??F) 07/15/2014 1:52 PM ED T Respiratory Rate - - Oxygen Saturation 98% 07/15/2014 1:52 PM EDT Inhaled Oxygen Concentration - - Weight 103.9 kg (229 lb) 08/27/2018 1:55 PM EDT Height 168.9 cm (5' 6.5) 08/27/2018 1:55 PM EDT Body Mass Index 36.41 08/27/2018 1:55 PM EDT Plan of Treatment Health Maintenance Due Date Last Done Comments CT Colonography 1955 Colonoscopy 1955 Colorectal Cancer Screening 1955 FIT DNA 1955 FIT 1955 Sigmoidoscopy (10 year) with FIT yearly 1955 Sigmoidoscopy 1955 Hepatitis C Screening 1974 Lipid Screening 1974 Tetanus/Diphtheria/Pertussis Vaccines (1 - Tdap) 03/20 Breast Cancer Share Decision Needed 1996 Breast Cancer screening 1996 Zoster vaccine (1 of 2) 2006 Advance Directive 2011 Bone Density Scan 2021 Pneumoccocal Vaccine: 65+ (1 of 1 - PCV) 2021 Covid-19 Vaccine (1 - season) 2023 Influenza (Flu) vaccine (1 o f 1 - Influenza standard series) 10/07/2023 Care Teams Chip Unloader Relationship Specialty Start Date End Date Darcie Haque MD [address] [place] [address] PCP - General Family Medicine 08/27/18
--- OUTSIDE RECORDS SUMMARY | 2023-11-20 16:15 | XMS_ITS | Encounter Summary ---
Author Organization [facility] [place] [address] Care Team Providers Care Road Mechanic Name Role Phone Darcie Haque MD Primary Care Provider [phone] Reason for Visit * Reason Comments Establish Care Family history very strong for Cardiac Issues Preoperative Cardiovascular Scheduled fo r left TKA on 10/01 at [facility] (they were ok with date of pre-op clearance) Encounter Details Date Type Department Care Team (Late st Contact Info) Description 08/27/2018 1:20 PM EDT Office Visit Cardiology at [address] [phone] Obie Owusu Jr., MD [address] [place] [address] [phone] Family history of heart disease; Essential hypertension; Hyperlipidemia, unspecified hyperlipidemia type; Palpitations; Chest pain, unspecified type Social History Tobacco Use Types Packs/Day Years [...] 1:55 PM EDT per e kg Temperature - - Respiratory Rate - - Oxygen Saturation - - Inhaled Oxygen Concentration - - Weight 103.9 kg (229 lb) 08/27/2018 1:55 PM EDT Height 168.9 cm (5' 6.5) 08/27/2018 1:55 PM EDT Body Mass Index 36.41 08/27/2018 1:55 PM EDT documented in this encounter Progress Notes * Obie Owusu Jr., MD - 08/27/2018 1:20 [...] and she has had none for the last 9 months. When she was more active she had no exertional chest pain or limiting dyspnea. For the last few months she has not been very active due to knee pain. She denies edema, PND or orthopnea.Her energy level is stable. Allergies Allergen Reactions ??? Iodine And Iodide Containing Products Anaphylaxis ??? Sulfa (Sulfonamide Antibiotics) Hives ??? [place] Throat swelling and mouth sores Current Outpatient [...] mg by mouth 2 times daily. ??? maryuri-wil-cham-courtney [phone] mg Tablet Take 4 tablets by mouth [...] NSR and APCs ??? Chest pain [facility] [place]- normal cors ??? Hyperthyroidism ??? Osteoarthritis ??? [...] file Gets together: Not on file Attends tenriism service: Not on file Active member of [...] retired 2 years ago from working in [employer]- stress level much lower now ROS: [...] anesthesia and surgery. No pre op cardiac testingis necessary. She should take her metoprolol the [...] on file documented as of this encounter Procedures Procedure Name Priority Date/Time Associated Diagnosis Comments ECG SCAN 09/05/2018 12:00 AM EDT documented in this encounter Results * SCAN DOC: ECG (09/05/2018 12:00 AM EDT) Narrative 09/05/2018 12:00 AM EDT Ordered by an unspecified provider. Scanning Provider MEDIA MGR SCAN EXT O RDR/RSLT documented in this encounter Visit Diagnoses Diagnosis Family history of heart disease Essential hypertension Unspecified essential hypertension Hyperlipidemia, unspecified hyperlipidemia type Palpitations Chest pain, unspecified type documented in this encounter Care Teams Road Mechanic Relationship Specialty Start Date End Date Darcie Haque MD [address] [place] [address] PCP - General Family Medicine 08/27/18 documented as of this encounter
--- OUTSIDE RECORDS SUMMARY | 2023-11-20 16:15 | XMS_ITS | Encounter Summary ---
Author Organization Formerly [facility], [facility] Address [facility] [place] [address] Care Team Providers Care Senior Sales Administrator Name Role Phone Oneil Norman WILLY Tameka Primary Care Provider + Encounter Details Date Type Department Care Team (Late st Contact Info) Description 01/05/2014 Orders [place] [address] Kimberly Long MD [facility] [place] [address] Hyperthyroidism Social History Tobacco Use Types Packs/Day Years [...] on file documented as of this encounter Results * TSH (07/15/2014 1:46 PM EDT) Thyroid Stimulating Hormone 2.08 0.27 - 4.20 mcIU/mL [facility] Blood specimen (specimen) 07/15/2014 1:46 PM EDT 07/15/2014 2:09 PM EDT Narrative Resulting Agency Comment Spec In Lab Kimberly Long MD CHEMISTRY ORDERAB LES [facility] documented in this encounter Visit Diagnoses Diagnosis Hyperthyroidism Thyrotoxicosis without mention of goiter or other cause, without mention of thyrotoxic crisis or storm documented in this encounter Care Teams Senior Sales Administrator Relationship Specialty Start Date End Date Tameka Riggs APRN PCP - General 06/08/10 08/01/15 documented as of this encounter
--- OUTSIDE RECORDS SUMMARY | 2023-11-20 16:15 | XMS_ITS | Encounter Summary ---
Author Organization [facility] [place] [address] Care Team Providers Care Scale Installer Name Role Phone Oneil Norman APRN, Nicole Primary Care Provider + Encounter Details Date Type Department Care Team (Late st Contact Info) Description 11/06/2014 4:45 PM EDT Interpretation Only Cardiology at [address] [phone] Obie Owusu Jr., MD [address] [place] [address] Palpitations; SVT (supraventricular tachycardia); APC (atrial premature contractions) Social History Tobacco Use Types Packs/Day Years [...] Procedure Name Priority Date/Time Associated Diagnosis Comments HOLTER MONITOR 24 HOUR Routine 11/06/2014 documented in this encounter Results * Holter Monitor 24hr (11/06/2014) Anatomical Region Laterality Modality Other Narrative 11/06/2014 Ash Lyles ?: 1955 PCP: ASH FOSTER APRN (General) Holter Report- Final [facility], [address] [facility] [address] Date of application: 11/04/2014 ?Date of Scan: 11/06/2014 ? Date of Interpretation: 11/06/2014 Indication: palpitations Baseline Rhythm: NSR Symptoms: log kept- frequent palpitations Report: Minimum HR: 41 (sleep) Average HR: 60 Maximum HR: 88 Ventricular- VPC: 5 Couplets: 0 VT: 0 Atrial- APC: 574 Couplets: 3 SVT: 2, longest 4 beats, fastest 157 BPM Summary: ?NSR throughout, bradycardia during sleep, rare APC and VPC, 2 brief SVT, no correlation of patient palpitations and minor arrhythmias Electronically signed: Obie Owusu Jr, MD FAC ??Date: 11/06/2014 Historical Provider CARDIAC SERVICES ORDERABLES documented in this encounter Visit Diagnoses Diagnosis Palpitations SVT (supraventricular tachycardia) Other specified cardiac dysrhythmias APC (atrial premature contractions) Supraventricular premature beats documented in this encounter Care Teams Scale Installer Relationship Specialty Start Date End Date Ash Foster APRN PCP - General 06/08/10 08/01/15 documented as of this encounter
--- OUTSIDE RECORDS SUMMARY | 2023-11-20 16:15 | XMS_ITS | Encounter Summary ---
Author Organization [facility] [place] [address] Care Team Providers Care Archives Specialist Name Role Phone Oneil Norman APRN, Nicole Primary Care Provider + Encounter Details Date Type Department Care Team (Late st Contact Info) Description 12/23/2014 Interpretation Only Cardiology at [address] [phone] Obie Owusu Jr., MD [address] [place] [address] Palpitations Social History Tobacco Use Types Packs/Day Years [...] documented as of this encounter Visit Diagnoses Diagnosis Palpitations documented in this encounter Care Teams Archives Specialist Relationship Specialty Start Date End Date Tameka Riggs APRN PCP - General 06/08/10 08/01/15 documented as of this encounter
--- OUTSIDE RECORDS SUMMARY | 2023-11-20 16:15 | XMS_ITS | Encounter Summary ---
Author Organization [facility] [place] [address] Care Team Providers Care Coating And Baking Operator Name Role Phone Darcie Haque MD Primary Care Provider [phone] Encounter Details Date Type Department Care Team (Late st Contact Info) Description 08/22/2018 Telephone Cardiology at [address] [phone] Obie Owusu Jr., MD [address] [place] [address] Social History Tobacco Use Types Packs/Day Years Used Date Smoking Tobacco: Never Alcohol Use Standard Drinks/Week Comments Not Asked 0 (1 standard drink = 0.6 oz pur e alcohol) Sex and Gender Information Value Date Recorded Sex Assigned at Not on file Gender Identity Not on file Sexual Orientation Not on file documented as of this encounter Miscellaneous Notes * Telephone Encounter - Camila Herman - 08/27/2018 10:43 AM EDT Spoke to Nola @ [facility]. This appt if okay for them. Just fax notes clearing her for the surgery. * Telephone Encounter - Jackie Knight RN - 08/22/2018 10:25 AM EDT Intake comments on this new patient: She is scheduled for October 01, 2018 Total knee arthroplasty (left) To be done by Dr. Holden, [facility]. This appointment is scheduled August 27 - which is greater than 30 days before the surgery. (1) Should we move it; (2) notify Dr. Holden of the > 30 days ? Addendum: No recent chemistry or other labs included (except a urinalysis) documented in this encounter Plan of Treatment Not on file documented as of this encounter Visit Diagnoses Not on filedocumented in this encounter Care Teams Coating And Baking Operator Relationship Specialty Start Date End Date Darcie Haque MD [address] [place] [address] PCP - General Family Medicine 08/27/18 documented as of this encounter
--- OUTSIDE RECORDS SUMMARY | 2023-11-20 16:15 | XMS_ITS | Encounter Summary ---
Author Organization [facility] Address [facility] [place] [address] Care Team Providers Care Corner Cutter Machine Operator Name Role Phone Oneil Norman APRN, Nicole Primary Care Provider + Reason for Visit * Reason Comments Medication Refill Encounter Details Date Type Department Care Team (Late st Contact Info) Description 03/23/2015 Refill [place] [address] Kimberly Long MD [facility] DR [place] [address] Social History Tobacco Use Types Packs/Day Years [...] on filedocumented in this encounter Care Teams Corner Cutter Machine Operator Relationship Specialty Start Date End Date Tameka Riggs APRN PCP - General 06/08/10 08/01/15 documented as of this encounter
--- OUTSIDE RECORDS SUMMARY | 2023-11-20 16:15 | XMS_ITS | Encounter Summary ---
Author Organization Formerly [facility] Address [facility] [place] [address] Care Team Providers Care Multi Mission Helicopter Aircrewman Name Role Phone Oneil Norman APRN, Nicole Primary Care Provider + Reason for Visit * Reason Comments Medication Refill Encounter Details Date Type Department Care Team (Late st Contact Info) Description 02/25/2014 Ref[place] [address] Kimberly Long MD [facility] DR ENDOCRINOLOGY [place] [address] Social History Tobacco Use Types Packs/Day Years [...] on filedocumented in this encounter Care Teams Multi Mission Helicopter Aircrewman Relationship Specialty Start Date End Date Tameka Riggs APRN PCP - General 06/08/10 08/01/15 documented as of this encounter
--- OUTSIDE RECORDS SUMMARY | 2023-11-20 16:15 | XMS_ITS | Encounter Summary ---
Author Organization Formerly [facility] [place] [address] Care Team Providers Care Proof Coins Inspector Name Role Phone Darcie Haque MD Primary Care Provider [phone] Encounter Details Date Type Department Care Team (Latest Contact Info) Description 04/16/2019 8:57 PM EDT - 04/16/2019 11:59 PM EDT Hospital [place] [phone] Discharge Disposition: Home Social History Tobacco Use Types Packs/Day Years [...] Start Date End Date metoprolol (LOPRESSOR) 100 mg Tablet Take 50 mg by mouth 2 times daily. spironolactone (ALDACTONE) 25 mg Tablet Take 25 mg by mouth daily. nitroGLYcerin (NITROSTAT) 0.4 mg Tablet, Sublingual Place 0.4 mg under the tongue every 5 minutes as needed for Chest pain. VITAMIN A ORAL Take 2,400 mg by mouth daily. cyanocobalamin, vitamin B-12, (B-12 DOTS ORAL) Take 2,400 mg by mouth 2 times daily. Ascorbic Acid (VITAMIN C) 1,000 mg Tablet Sustained Release Take 1,000 mg by mouth daily. cholecalciferol, Vitamin D3, (D3-2000) 2,000 unit Capsule Take 2,000 Units by mouth daily. UNABLE TO FIND Lutein, Blueberry, Billberry complex 2 tablets daily vitamin E (VITAMIN E) 400 unit Capsule Take 400 Units by mouth daily. evening primrose oil (EVENING PRIMROSE ORAL) Take 1,000 mg by mouth 2 times daily. ttff-zqoi-vcf-yuc-dina-c ham-hor [id number] mg Tablet Take 4 tablets by mouth 2 times daily. magnesium oxide (MAG-OX) 400 mg (241.3 mg magnesium) Tablet Take 400 mg by mouth daily. UNABLE TO FIND 250 mg. Valerian root with passion flower, 1 tablet nightly UNABLE TO FIND Aloe vera distilled juice 2 ounces twice a day UNABLE TO FIND Coloidal Silver 1 tablespoon daily methimazole (TAPAZOLE) 5 mg Tablet take 1 tablet by mouth once daily 90 tablet 3 03/23/2015 documented as of this encounter Plan of Treatment Not on file documented as of this encounter Procedures Procedure Name Priority Date/Time Associated Diagnosis Comments PATHOLOGY SLIDE REVIEW Routine 04/16/2019 9:43 PM EDT PATHOLOGY SLIDE REVIEW Routine 04/16/2019 6:30 AM EDT documented in this encounter Results * Smear Review Report (04/16/2019 9:43 PM EDT) Smear Review Report [id number] ? Location: [facility] The signing pathologist has (i) examined the relevant preparation(s) for the specimen(s) and (ii) rendered or confirmed the diagnosis(es). . ? Smear Review DIAGNOSIS Anemia, thrombocytosis Electronically signed by: ??Elza RINCON, Kaushal Verified: ??04/17/2019 ?Hematopathologis t Performed at: ??-[facility] Dept. of Pathology, [place], [place] DISCUSSION There is ??anemia ( 10.6gm/dl, MCV 96.3). ??The red blood cells show anisopoikilocytosi s with elliptocytes, seen. ??There is no hypochromasia, nor polychromasia. ??The white blood cells( 13.3 10^3/uL)show hypergranulated toxic morphology. Platelets ( 668 10^3/uL) show normal platelet morphology. The anemia is likely of ??multifactorial etiology such as anemia of nutritional deficiencies, anemia of chronic inflammation as seen in liver and renal abnormalities. No significant hemolysis seen ??morphologically. NOTE _Thrombocytosis can be seen in infection, inflammation, acute conditions such as bleeding . However, if persistent and not explained, may raise concern for a marrow disorder. Preliminary molecular studies such as BCR-ABL , Jak2 , CALr MPL mutations can be pursed , if clinically indicated. ADDITIONAL STUDIES NOT DONE CLINICAL INFORMATION cytosis [facility] 04/16/2019 9:43 PM EDT Christiano Toledo DO HEMATOLOGY OR DERABLES Performing Organization Address City/[facility]/ZIP Co de Phone Number [facility] [place] [address] * Peripheral Smear Review (04/16/2019 6:30 AM EDT) Peripheral Smear Review See Comment [facility] Comment: When completed by the Pathologist, report [id number] will display under Hematopathology Reports. Blood specimen (specimen) Venous Draw / Unknown 04/16/2019 6:30 AM EDT 04/16/2019 9:03 PM EDT Narrative Resulting Agency Comment Spec In Lab Christiano Toledo DO HEMATOLOGY OR DERABLES Performing Organization Address City/[facility]/ZIP Co de Phone Number [facility] [place] [address] documented in this encounter Visit Diagnoses Not on filedocumented in this encounter Care Teams Proof Coins Inspector Relationship Specialty Start Date End Date Darcie Hqaue MD [address] [place] [address] PCP - General Family Medicine 08/27/18 documented as of this encounter
--- OUTSIDE RECORDS SUMMARY | 2023-11-20 16:15 | XMS_ITS | Encounter Summary ---
[place] [address] Care Team Providers Care Yard General Car Supervisor Name Role Phone Oneil Norman APRN, Nicole Primary Care Provider + Reason for Visit * Reason Onset Date Comments Results 11/27/2014 DEJUAN APPLIED 11/06 03/22 Encounter Details Date Type Department Care Team (Late st Contact Info) Description 11/27/2014 Telephone Cardiology at [address] [phone] Obie Owusu Jr., MD [address] [place] [phone] Results (DEJUAN APPLIED 11/26/14) Social History Tobacco Use Types Packs/Day Years Used Date Smoking Tobacco: Never Alcohol Use Standard Drinks/Week Comments Not Asked 0 (1 standard drink = 0.6 oz pur e alcohol) Sex and Gender Information Value Date Recorded Sex Assigned at Not on file Gender Identity Not on file Sexual Orientation Not on file documented as of this encounter Miscellaneous Notes * Telephone Encounter - Obie Owusu Jr., MD - 12/23/2014 6:09 PM EST Loop recorder- NSR with APCs documented in this encounter Plan of Treatment Not on file documented as of this encounter Visit Diagnoses Not on filedocumented in this encounter Care Teams Yard General Car Supervisor Relationship Specialty Start Date End Date Tameka Riggs APRN PCP - General 06/08/10 08/01/15 documented as of this encounter
--- OUTSIDE RECORDS SUMMARY | 2023-11-20 16:15 | XMS_ITS | Encounter Summary ---
Author Organization [facility] Address [facility] [place] [address] Care Team Providers Care Career Based Intervention Coordinator Name Role Phone Oneil Ester WILLY Tameka Primary Care Provider + Reason for Visit * Reason Comments Hyperthyroidism Encounter Details Date Type Department Care Team (Late st Contact Info) Description 07/15/2014 1:30 PM EDT Office [place] [address] Kimberly Long MD [facility] DR ENDOCRINOLOG[place] [address] Hyperthyroidism Discharge Disposition: Home Social History Tobacco Use [...] documented in this encounter Progress Notes * Kimberly Long MD - 07/13/2014 8:04 PM [...] 24 hr Take 2 tablets by mouth 2times daily. ??? methimazole (TAPAZOLE) 5 mg Tablet [...] been a since 2001. 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 Nonsmoker. Nondrinker. Complete review of [...] with Graves disease. 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 drugs with methimazole 5 mg a [...] Procedure Name Priority Date/Time Associated Diagnosis Comments TSH Routine 07/15/2014 1:46 PM EDT Hyperthyroidism documented in this encounter Results * TSH (07/15/2014 1:46 PM EDT) Thyroid Stimulating Hormone 2.08 0.27 - 4.20 mcIU/mL [facility] Blood specimen (specimen) 07/15/2014 1:46 PM EDT 07/15/2014 2:09 PM EDT Narrative Resulting Agency Comment Spec In Lab Kimberly Long MD CHEMISTRY ORDERAB LES [facility] [employer] documented in this encounter Visit Diagnoses Diagnosis Hyperthyroidism Thyrotoxicosis without mention of goiter or other cause, without mention of thyrotoxic crisis or storm documented in this encounter Care Teams Career Based Intervention Coordinator Relationship Specialty Start Date End Date Tameka Riggs APRN PCP - General 06/08/10 08/01/15 documented as of this encounter
--- OUTSIDE RECORDS SUMMARY | 2023-11-20 16:15 | XMS_ITS | Encounter Summary ---
Author Organization [facility] [place] [address] Care Team Providers Care Environmental Test Technician Name Role Phone Oneil Norman APRN, Nicole Primary Care Provider + Encounter Details Date Type Department Care Team (Late st Contact Info) Description 11/17/2014 Telephone Cardiology at [address] [phone] Obie Owusu Jr., MD [address] [place] [phone] Social History Tobacco Use Types Packs/Day Years [...] Miscellaneous Notes * Telephone Encounter - Camila Vázquez - 11/19/2014 4:58 PM EDT The patient's Holter Monitor 11/06/14 results were faxed to Tameka Riggs APRN at [phone] as requested. * Telephone Encounter - Camila Vázquez - 11/17/2014 8:19 AM EDT Received a call from Eva from pt's PCP, Tameka Riggs APRN, office requesting a copy of the11/06/14 holter results be faxed to the office at [phone] (fax). Pt is being seen this morning. documented in this encounter Plan of Treatment Not on file documented as of this encounter Visit Diagnoses Not on filedocumented in this encounter Care Teams Environmental Test Technician Relationship Specialty Start Date End Date Tameka Riggs APRN PCP - General 06/08/10 08/01/15 documented as of this encounter
--- OUTSIDE RECORDS SUMMARY | 2023-11-20 16:15 | XMS_ITS | Encounter Summary ---
Author Organization [facility] [place] [address] Care Team Providers Care Puddler Pile Driving Name Role Phone Darcie Haque MD Primary Care Provider [phone] Encounter Details Date Type Department Care Team (Late st Contact Info) Description 08/27/2018 Abstract Cardiology at [address] [place] [address] Domo Hopper RN Social History Tobacco Use Types Packs/Day Years [...] on filedocumented in this encounter Care Teams Puddler Pile Driving Relationship Specialty Start Date End Date Darcie Haque MD [address] [place] [address] PCP - General Family Medicine 08/27/18 documented as of this encounter
--- OUTSIDE RECORDS SUMMARY | 2023-11-20 16:15 | XMS_ITS | Encounter Summary ---
Author Organization [facility] Address [facility] [place] [address] Care Team Providers Care Process Pumper Name Role Phone Oneil Norman APRN, Nicole Primary Care Provider + Reason for Visit * Reason Comments Medication Refill Encounter Details Date Type Department Care Team (Late st Contact Info) Description 02/08/2013 [place] [address] Kimberly Long MD [facility] [place] [address] Social History Tobacco Use Types Packs/Day Years [...] on filedocumented in this encounter Care Teams Process Pumper Relationship Specialty Start Date End Date Tameka Riggs APRN PCP - General 06/08/10 08/01/15 documented as of this encounter
--- OUTSIDE RECORDS SUMMARY | 2023-11-20 16:15 | XMS_ITS | Data Portability ---
Author Organization [place] - [facility] [place] [address] Assessment No assessment recorded. Plan of Treatment Reminders Order Date Submit Date Provider Last Modified By Organization Details Last Modified Time Details Appointments None recorded. Lab influenza virus A + B + SARS-CoV-2 (COVID19) Ag panel, rapid IA, upper respiratory specimen 2023 024 [email or web address] [facility], [address] [place] [address], [address], [place], [address], 16:56:51 Referral None recorded. Procedures None recorded. Surgeries None recorded. Imaging None recorded. Medication Orders None recorded. Patient TargetsNo targets recorded. Patient Instructions Encounter Date Encounter Id Patient Instructions Last Modified By Organization Details Last Modified Time 02/28/2023 [id number] 1. You are positive for influenza A. This is the cause of your symptoms. Given the number of days you have had symptoms it is not thought that prescription antiviral medication could be helpful at this point. It is only really helpful started in the first 24 to 48 hours. 2. It is very important you stay well-hydrated. 3. Lung exam today without signs of pneumonia or wheeze. 4. The area on your back which is of concern is a small pimple. I have cleaned the area and put a Band-Aid over so that it does not continue to be irritated by your bra. 5. I do expect your ill symptoms will linger but should slowly begin to improve. If you do not improve or have worsening please seek reevaluation as needed. [email or web address] Not available 02/28/2023 16:51:22 Reason for Referral None Reported. Results Created Date Observation Date Name Description Value Unit Range Abnormal Flag Note LastModifiedBy Organization Detail LastModifiedTime 02/28/19 24 02/28/2023 influ armen virus A + B + SARS- CoV-2 (COVI D19) Ag panel , rapid IA, upper respi rator y speci men Influenza A positi ve Not Available [address], [place], [address], 02/28/2023 16:13:08 02/28/19 24 02/28/2023 influ armen virus A + B + SARS- CoV-2 (COVI D19) Ag panel , rapid IA, upper respi rator y speci men Influenza B negati ve Not Available [address], [place], [address], 02/28/2023 16:13:08 02/28/19 24 02/28/2023 influ armen virus A + B + SARS- CoV-2 (COVI D19) Ag panel , rapid IA, upper respi rator y speci men SARS-COV-2 negati ve Not Available [address], [place], [address], 02/28/2023 16:13:08 02/28/19 24 02/28/2023 influ armen virus A + B + SARS- CoV-2 (COVI D19) Ag panel , rapid IA, upper respi rator y speci men Sample sent for PCR confirmation No Not Available [address], [place], [address], 02/28/2023 16:13:08 10/21/19 24 08/09/2022 bone densi ty No observ ation record ed. Not Available 10/20 23:17:52 10/21/1904/10/2019 imagi ng/di agnos tic resul t No observ ation record ed. Not Available 10/20 23:18:03 10/21/19 24 03/30/2019 imagi ng/di agnos tic resul t No observ ation record ed. Not Available 10/20 23:18:04 10/21/19 24 03/30/2019 US, abdom en + pelvi s No observ ation record ed. Not Available 10/20 23:18:10 10/21/19 24 02/28/2021 XR, knee No observ ation record ed. Not Available 10/20 23:18:11 10/21/19 24 04/09/2019 US, pelvi s No observ ation record ed. Not Available 10/20 23:18:13 10/21/19 24 02/28/2021 XR, knee No observ ation record ed. Not Available 10/20 23:18:15 10/21/19 24 03/30/2019 imagi ng/di agnos tic resul t No observ ation record ed. Not Available 10/20 23:19:46 10/21/1904/09/2019 imagi ng/di agnos tic resul t No observ ation record ed. Not Available 10/20 23:19:47 Result Notes None recorded. Problems Name Problem SNOMED Code Status Onset Date Resolution Date Notes Provider Name and Address Organization Details Recorded Time [facility] 90046384 Active 201508/06/19 23 - Comments only - Nola Dominguez [employer] - Systolic slightly elevated today at 140. Home readings in range and takes daily. She will continue to monitor at home and also bring in home cuff for double checking with next visit. Follow-u p 3 months, sooner if concerns . Problem Code: I10; Problem Code Type: ICD-10; Not Available [facility] 3 04:31:29 Toxic diffuse goiter with no crisis 666148592 Active 201508/06/19 23 - Comments only - Nola Dominguez [employer] - Continue on methimaz ole same dosing. Recent TSH 3 at 0.95. Problem Code: E05.00; Problem Code Type: ICD-10; Not Available [facility] 3 04:31:29 Body mass index 30+ - obesity 263263243 Active 201504/28/19 23 - Deterior ated - Wilma Spears WILLY - Wt gain of 20 lbs in past 6 months. Pt has returned to intermit tent fasting and low carb diet. Encourag ed to continue her efforts. Problem Code: Z68.37; Problem Code Type: ICD-10; Not Available [facility] 3 04:31:29 Knee joint prosthes is present 92033486642 2 Active 201511/02/19 22 - Comments only - Wilma Regan AGUILERA - Pt feels she has had some mild lateral swelling , not detectab le on exam today. Discomfo rt has lessened with wt loss. Problem Code: Z96.652; Problem Code Type: ICD-10; Not Available [facility] 3 04:31:29 Insomnia 912612242 Active 2015 Problem Code: G47.00; Problem Code Type: ICD-10; Not Available [facility] 3 04:31:29 Allergic rhinitis 36104210 Active 2016 Problem Code: J30.9; Problem Code Type: ICD-10; Not Available [facility] 3 04:31:29 Acute upper respirat ory infectio n 68229511 Completed 201606/10/2016 Problem Code: J06.9; Problem Code Type: ICD-10; Not Available [facility] 3 04:31:29 Acute sinusiti s 43512928 Completed 201608/05/2016 Problem Code: J01.90; Problem Code Type: ICD-10; Not Available [facility] 3 04:31:30 Adult health examinat ion Active 201704/28/19 23 - Comments only - Wilma Spears WILLY - No longer needs cervical cancer screenin g. Pt declines further mammogra ms. Also declines pneumoni a vaccine, utd with tetanus vaccine. Problem Code: Z00.00; Problem Code Type: ICD-10; Not Available [facility] 3 04:31:30 Major depressi on, single episode 30981286 Active 201911/02/19 22 - Improved - Wilma Spears APRN - Not currentl y active, pt denies low mood, feeling motivate d by recent wt loss. Problem Code: F32.9; Problem Code Type: ICD-10; Not Available [facility] 3 04:31:30 Anxiety disorder 561735151 Active 201904/28/19 23 - Comments only - Wilma Spears APRN - Describi ng some incresed anxiety r/t financia l situatio n, but not impairin g daily function . Problem Code: F41.9; Problem Code Type: ICD-10; Not Available [facility] 3 04:31:30 Pain of left knee joint 97268546058 4107 Active 202004/20/19 22 - Comments only - Wilma Spears APRN - Had TKR, but still experien cing pain. Seen by ortho who felt that prosthes is componen t/plate was too large. Pt will defer any interven tion at this time, see above. Problem Code: M25.562; Problem Code Type: ICD-10; Not Available [facility] 3 04:31:30 History of blood disorder 174744192 Active 202008/13/19 21 - Comments only - Wilma Spears APRN - Noted during admissio n for appendec [place]. Will recheck CBC and iron today. Not Available [facility] 3 04:31:30 Imaging result abnormal 981772029 Active 202004/20/19 22 - Comments only - Wilma Spears APRN - Incident al finding on imaging done when tx'ed for appendic itis. Pt states she has had transvag inal US at [facility], no call back. Denies pain or bleeding . Will attempt to obtain report. Problem Code: R93.89; Problem Code Type: ICD-10; Not Available [facility] 3 04:31:30 Pain of right knee joint 72588815219 4100 Active 202004/20/19 22 - Comments only - Wilma Spears APRN - Evaluate d by ortho, finding of signific ant DJD, pt declines interven tion for now as pain is reduced with diet change and wt loss. Problem Code: M25.561; Problem Code Type: ICD-10; Not Available [facility] 3 04:31:30 Low back pain 809791332 Active 202112/17/19 22 - Comments only - Wilma Spears WILLY - With radiatio n to R SI and groin. Chiropra ctor recommen ding xray, imaging ordered. May consider referral to pain clinic and/or MRI. Problem Code: M54.50; Problem Code Type: ICD-10; Not Available [facility] 3 04:31:30 Joint pain 87422644 Active 202112/17/19 22 - Comments only - Wilma Spears WILLY - Pt has family hx of RA and other autoimmu ne diseases , asking about testing. Will check imflamma tory markers, RA factor. Using turmeric as anti-inf lammator y, cannot tolerate ibuprofe n, blood in stool. Problem Code: M25.50; Problem Code Type: ICD-10; Not Available [facility] 3 04:31:31 Family history of Arthriti s 287241446 Active 202112/17/19 22 - Comments only - Wilma Spears WILLY - Will check RA factor, see above. Problem Code: Z82.61; Problem Code Type: ICD-10; Not Available [facility] 3 04:31:31 Menopaus e present 563078133 Active 2022 Problem Code: Z78.0; Problem Code Type: ICD-10; Not Available [facility] 3 04:31:31 Screenin g for osteopor osis Completed 202208/24/2022 08/06/19 23 - Comments only - Nola Dominguez [employer] - DEXA scan ordered. Problem Code: Z13.820; Problem Code Type: ICD-10; Not Available [facility] 3 04:31:31 Chest pain 94610829 Active 2022 Problem Code: R07.89; Problem Code Type: ICD-10; Not Available [facility] 3 04:31:31 Joelle hoffman Completed 202208/24/2022 08/06/19 23 - Comments only - Nola Dominguez NP - Now roel howard on my panel. She will follow-u p in 3 months for hyperten benoit check and as well as labs and check in on chest pains pressure follow-u p to cardiac stress test. Problem Code: Z71.89; Problem Code Type: ICD-10; Not Available [facility] 3 04:31:31 Senile osteopor osis 13748749 Active 2022 Problem Code: M81.0; Problem Code Type: ICD-10; Not Available [facility] 3 04:31:31 Chest pain 09232354 Completed 201505/02/2016 Problem Code: R07.89; Problem Code Type: ICD-10; Not Available [facility] 3 04:31:33 Osteoart hritis of knee 134788290 Completed 201511/01/2022 02/14/19 20 - Comments only - Wilma Spears APRN - Had TKR earlier this year with some post-blanca gical complica tions and extended recovery . Feeling better recently , but now having pain in R knee. Will refer to ortho if sxs worsen. Problem Code: M17.9; Problem Code Type: ICD-10; Not Available [facility] 3 04:31:34 Fatigue 49050172 Completed 201505/30/2016 Problem Code: R53.83; Problem Code Type: ICD-10; Not Available [facility] 3 04:31:34 Body mass index 40+ - severely obese 750019861 Completed 201511/01/2022 11/02/19 22 - Improved - Wilma Spears APRN - Pt's wt is down about 40 lbs since 05/26. Has been doing intermit tent fasting and low carbs. Encour ed to continue her efforts. Problem Code: Z68.41; Problem Code Type: ICD-10; Not Available [facility] 3 04:31:34 Hyperlip idemia ruthin pao Completed 201709/04/2018 Problem Code: Z13.220; Problem Code Type: ICD-10; Not Available [facility] 3 04:31:35 Adjustme nt disorder 58784051 Completed 201509/04/2018 Problem Code: F43.29; Problem Code Type: ICD-10; Not Available [facility] 3 04:31:35 Pre-surg celeste evaluati on Completed 201802/11/2019 Problem Code: Z01.818; Problem Code Type: ICD-10; Not Available [facility] 3 04:31:35 Hypokale meghana 81622942 Completed 201505/30/2016 Problem Code: E87.6; Problem Code Type: ICD-10; Not Available [facility] 3 04:31:36 Obesity 549372084 Completed 201511/01/2022 08/31/19 18 - Comments only - Darcie Haque MD - We discusse d healthy diet and regular execise. Problem Code: E66.9; Problem Code Type: ICD-10; Not Available [facility] 3 04:31:36 Low back pain 377466024 Completed 201505/30/2016 Problem Code: M54.5; Problem Code Type: ICD-10; Not Available [facility] 3 04:31:36 Hypothyr oidism 46045785 Completed 201606/27/2017 Problem Code: E03.9; Problem Code Type: ICD-10; Not Available [facility] 3 04:31:36 Hemorrha ge of rectum and anus 303527546 Completed 201601/03/2017 Problem Code: K62.5; Problem Code Type: ICD-10; Not Available [facility] 3 04:31:37 Palpitat ions 56424589 Active 202211/20/19 23 - Comments only - Nola Dominguez [employer] - Zio patch ordered as they do not happen very regularl y. Also discusse d that since she is having symptoms of dizzines s with the occasion s we should make sure she does not have a true arrhythm ia cardiac to put monitor on. Labs also ordered includin g CBC, CMP, TSH and free T4. Does have history of hypothyr oidism. Problem Code: R00.2; Problem Code Type: ICD-10; Not Available [facility] 4 05:35:56 Fatigue 21328695 Active 2022 Problem Code: R53.83; Problem Code Type: ICD-10; Not Available [facility] 4 05:35:56 Influenz a caused by Influenz a A virus 083891720 Active 2023 LUCAS LUND PA-C [address], [place], [address] , [facility] 4 16:57:23 Problem Notes None recorded. Procedures Surgical History None recorded. Imaging Results Imaging Date Name Status LastModified by [facility]iz [facility] Details LastModified Time 08/09/2022 bone density completed Information not available 10/21/2023 23:17:52 04/10/2019 imaging/diag nostic result completed Information not available 10/21/2023 23:18:03 03/30/2019 imaging/diag nostic result completed Information not available 10/21/2023 23:18:04 03/30/2019 US, abdomen + pelvis completed Information not available 10/21/2023 23:18:10 02/28/2021 XR, knee completed Information no t available 10/21/2023 23:18:11 04/09/2019 US, pelvis completed Information no t available 10/21/2023 23:18:13 02/28/2021 XR, knee completed Information no t available 10/21/2023 23:18:15 03/30/2019 imaging/diag nostic result completed Information not available 10/21/2023 23:19:46 04/09/2019 imaging/diag nostic result completed Information not available 10/21/2023 23:19:47 Procedure Notes None recorded. Medical Equipment None Reported. Allergies Allergen ID Allergen Name Allergen Category Reaction Reaction Severity Criticality Documentation Date Start Date Code Code System Note Provider Name and Address Organization Details Recorded Time 71189 Iodinated contrast media (substanc e) medicatio n Not available Not available Not available 12/15/20222015 88847 2004 SNOMED Aller gyNam e: 'IVP DYE'; Not Available [facility] 3 16:22:00 77399 Bactrim medicatio n rash mild Not available 12/15/20222016 94811 9 RxNorm rash Not Available [facility] 3 16:22:00 Medications Name Sig Start Date Stop Date Status Note LastModified by Organization Details LastModified Time amoxicillin 500 mg capsule Take 1 cap by mouth three times daily 08/05 completed Not Available Not Available Not Available cetirizine 10 mg tablet Take 1 tab by mouth daily. 05/02 completed Not Available Not Available Not Available metoprolol tartrate 100 mg tablet Take 0.5 tablet by mouth twice a day active Not Available Not Available No t Available MSM 1,000 mg capsule 1 daily 2020 active Not Available Not Available Not Avai lable Klor-Con 20 mEq oral packet take 1 tab bid 05/02 completed Not Available Not Available Not Available chlorthalid one 25 mg tablet Take 1 tab by mouth daily 05/02 completed Not Available Not Available Not Available tramadol 50 mg tablet Take 1 tab by mouth four times daily as needed for pain 10/02 completed Not Available Not Available Not Available spironolact one 25 mg tablet TAKE ONE TABLET BY MOUTH EVERY DAY 10/28 completed Not Available Not Available Not Available amoxicillin 500 mg tablet Take 4 tabs by mouth 1 hour prior to dental procedure 05/28 completed Not Available Not Available Not Available magnesium gluconate 12.5 mg magnesium (250 mg) tablet 2020 active Not Available Not Available Not Avai lable passion flower-raghavnedra alex 500 mg-500 mg capsule 1 tablet nightly 2018 active Not Available Not Available Not Avai lable Vitamins B Complex tablet take 1 tablet daily 2018 active Not Available Not Available Not Avai lable Vitamin C 1,000 mg tablet Take 1 tablet by mouth twice a day with samantha hips active Not Available Not Available No t Available lorazepam 0.5 mg tablet Take 1 tablet by mouth once a day as needed for severe anxiety/p anic 02/28 completed Not Available Not Available Not Available methimazole 5 mg tablet TAKE ONE TABLET BY MOUTH EVERY DAY 2023 active Not Available Not Available Not Avai lable dicyclomine 10 mg capsule take one capsule every 6 hours as needed for bloating and/or cramps 10/02 completed Not Available Not Available Not Available Co Q-10 10 mg capsule Take 1 cap by mouth daily 2020 active Not Available Not Available Not Avai lable amoxicillin 875 mg-potassiu m clavulanate 125 mg tablet One tablet every 12 hours 2019 completed Not Available Not Available Not Available Echinacea purpurea aerial parts extract 125 mg capsule 1 capsule PO TID 06/27 completed Not Available Not Available Not Available vitamin A Take 1 tablet once a day 2019 active Not Available Not Available Not Avai lable vitamin E Take 1 tablet once a day 2019 active Not Available Not Available Not Avai lable Benadryl for animal dander. 1/2 in the AM and 1 in the PM 11/29 completed Not Available Not Available Not Available aloe vera 1 1/2 ounce daily 05/28 completed Not Available Not Available Not Available Bilberry Plus 2018 active Not Available Not Available Not Avai lable Elderberry 2019 active Not Available Not Available Not Avai lable cholecalcif yadira (vitamin D3) 25 mcg (1,000 unit) tablet once a day 2018 active Not Available Not Available Not Avai lable Multivital 0.4 mg-162 mg-18 mg tablet 1 tab qd 05/28 completed Not Available Not Available Not Available Floranex 100 million cell oral granules in packet 1 gram twice daily 05/02 completed Not Available Not Available Not Available cholecalcif yadira (vitamin D3) 50 mcg (2,000 unit) tablet once a day 2018 active Not Available Not Available Not Avai lable zinc gluconate,z inc picolinate 30 mg capsule one daily 2019 active Not Available Not Available Not Avai lable Zyrtec 10 mg capsule 1/2 tablet twice daily 05/28 completed Not Available Not Available Not Available Vitamin C (ascorbate calcium) 814 mg/gram oral powder 2019 active Not Available Not Available Not Avai lable olive leaf extract to prevent tooth infection that broke 01/18 completed Not Available Not Available Not Available elderberry fruit 460 mg-elderber ry flower 115 mg capsule 2019 active Not Available Not Available Not Avai lable turmeric 2018 active Not Available Not Available Not Avai lable turmeric root extract 500 mg tablet 3 tabs bid 09/04 completed Not Available Not Available Not Available Vitals Date Recorded Body height Respiratory rate Body mass index (BMI) Body weight Body temperature Oxygen saturation Oxygen saturation in Arterial blood by Pulse oximetry Heart rate Systolic blood pressure Diastolic blood pressure Provider Name and Address Organization Details Last Updated DateTime 4 167.005 cm 20 /min 35.8 kg/m2 90462.3 2 g 99.8 [degF] 97 % 97 % 79 /min 158 mm[Hg] 89 mm[Hg] Damien epperson MA [facility] 16:05:21 Social History Question Answer Notes LastModified by Organizat ion Details LastModified Time Tobacco Smoking Status Former Smoker Damien Pascual MA [facility], [facility] 02/28/2023 16:00:45 When Did You Quit Smoking? 16+yearssinc elastcigaret te Information not available 02/28/2023 What Was The Date Of Your Most Recent Tobacco Screening? 02/28/2023 Information not available 02/28/2023 What Is Your Current Pack Years? 10packyears [email or web address] Information not available 02/28/2023 At What Age Did You Start Smoking Tobacco? 16 [email or web address] Information not available 02/28/2023 How Much Tobacco Do You Smoke? No [email or web address] Information not available 02/28/2023 Has Tobacco Cessation Counseling Been Provided? No [email or web address] Information not available 02/28/2023 How Many Years Have You Smoked Tobacco? 15 [email or web address] Information not available 02/28/2023 Do You Or Have You Ever Used Any Other Forms Of Tobacco Or Nicotine? No Information not available 02/28/2023 Sex: Female Functional Status None recorded. Mental Status None recorded. Family History Relationship Description Onset Age of this Age Resolved Age Notes LastModified by Organization Details LastModified Time Brother Family history of Hypercholest erolemia Not available 2022 03:54:55 Brother Family history of Hypertension Not available 11/2022 03:54:55 Brother Family history of heart failure Not available 2022 03:54:56 Sister Family history of Hypercholest erolemia Not available 2022 03:54:55 Sister Family history of Hypertension Not available 11/2022 03:54:55 Mother Family history of Hypertension Not available 11/2022 03:54:55 Mother Family history of heart failure Not available 2022 03:54:56 Father Family history of acute medical disorder bipola r Not available 12/15/2022 03:54:55 Father Family history of malignant neoplasm prosta te Not available 12/15/2022 03:54:55 Father Family history of cancer of colon prosta te Not available 12/15/2022 03:54:55 Unspecified Relation Family history of diabetes mellitus type 1 Relati ve: 'Uncle '; Not available 12/15/2022 03:54:56 Notes:*Problem: Mother- dece ased- CAD/ HTN/ HLD, ? thyroid Father- - Colon CA (age 60), arthritis Siblings- 5 - Chely has larynx mass ? CA. All have HLD, HTN, arthritis. Brother Garett had CABG at 50. Brother Erick had cardiac cath age 50. Sister has sjogren's and glaucoma, hyperthyroidism. Children- 2 sons- well CAD: yes HTN: yes HLD: yes DM: yes (maternal sister and eldest sister) Cervical CA: unsure, eldest sister had polyps Breast CA: no Colon CA: yes Medical History No medical history recorded. Gynecological HistoryNo gynecological history recorded. Obstetrics History GPAL:G 0 P 0 0 0 0 Immunizations Vaccine Type Date Status Provider Name and Address Organization Details Recorded Time Td (adult), 2 Lf tetanus toxoid, preservative free, adsorbed 10/03/2019 completed Not Available [facility] 12/15/2022 06:08:56 Tdap 08/18/2008 completed Not Available [facility] 06:08:56 Influenza, split virus, trivalent, preservative 12/14/2015 completed Not Available [facility] 12/15/2022 06:08:56 Past Encounters Encounter ID Performer Location Encounter Start Date Encounter Closed Date Diagnosis/Indication Diagnosis SNOMED-CT Code Diagnosis ICD10 Code [id number] LUCAS LUND PA-C [address] [place] [address] 02/28/2023 14:23:20 02/28/2023 16:53:28 Influenza caused by Influenza A virus 514051754 J09.X2 Health Concerns Section Related Observation LastModified by Organization Detai ls LastModified Time None Recorded Concern Status LastModified by Organization Details LastModified Time None Recorded Advance Directives Directive None Recorded Payers Encounter Date Sequence Insurance Name Policy Number Policy Jackson Covered Member ID Jackson Member ID Guarantor Name 02/28/2023 1 [place]ARE [place]: [employer] Tameka Lyles [id number] Tameka Lyles Notes Date Note Type Note Provider Name and Address Organization Details Recorded Time 02/28/2023 text/html HPI Notes: Julia ferraro is a 67-year-old female who has been sick for 3 days with headache, cough, nausea, diarrhea, fevers and chills. She has had decreased appetite but is drinking fluids well. Cough sometimes productive. No wheeze. Generally feels fatigued. She has been treating symptoms with vitamins, Tylenol, Robitussin. Also has an area on her back she would like to have it evaluated. Of note patient is going through a transition in her life currently but is having some housing issues. Is living with her son, his and their 2 grandchildren. She feels like she has a bit of a burden and is stressed by having instability. We did have a brief discussion about antianxiety medication which her primary care provider had previously prescribed to her but she never filled. She is wondering about needing this medication. I have let her know that this is a conversation she needs to have with her primary care provider because we are not able to prescribe controlled substances from this location. She voiced understanding and stated she would follow-up as needed with her. [address], [place], [id number], [facility]. 02/28/2023 16:58:06 OBGyn Episode No OBEpisode recorded.
--- OUTSIDE RECORDS SUMMARY | 2023-11-20 16:16 | XMS_ITS | Encounter Summary ---
Author Organization [facility] Address [facility] [place] [address] Care Team Providers Care Nipple Maker Name Role Phone Oneil Ester WILLY Tameka Primary Care Provider + Reason for Visit * Reason Comments Graves' Disease Encounter Details Date Type Department Care Team (Late st Contact Info) Description 11/18/2010 2:00 PM EDT Office Visit [place] [address] Kimberly Long MD [facility] [place] [address] Hyperthyroidism (Primary Dx) Discharge Disposition: Home Social History Tobacco Use [...] EDT documented in this encounter Patient Instructions * Patient Instructions* Kimberly Long MD - 11/18/2010 2:53 PM EDT I'll let you know the results of the lab tests Continue methimazole 15 mg/day F/u in 6 months documented in this encounter Progress Notes * Kimberly Long MD - 11/18/2010 3:16 PM EDT OFFICE NOTE DATE OF DICTATION: 11/18/2010 DATE OF : 1955 PRIMARY CARE PROVIDER: WILLY Farmer is here for followup of her Graves [...] Procedure Name Priority Date/Time Associated Diagnosis Comments FREE THYROXINE INDEX SANTY 11/18/2010 2:17 PM EDT T3 TOTAL SANTY 11/18/2010 2:17 PM EDT Hyperthyroidism T UPTAKE SANTY 11/18/2010 2:17 PM EDT Hyperthyroidism TSH SANTY 11/18/2010 2:17 PM EDT Hyperthyroidism T4 TOTAL SANTY 11/18/2010 2:17 PM EDT Hyperthyroidism documented in this encounter Results * T3 (05/25/2011 2:15 PM EDT) T3 Total 102 75 - 170 ng/dL [facility] Blood specimen (specimen) 05/25/2011 2:15 PM EDT 05/25/2011 2:23 PM EDT Narrative Resulting Agency Comment Spec In Lab Kimberly Long MD CHEMISTRY ORDERAB LES [facility] * TSH (05/25/2011 2:15 PM EDT) Thyroid Stimulating Hormone 2.38 0.27 - 4.20 mcIU/mL [facility] Blood specimen (specimen) 05/25/2011 2:15 PM EDT 05/25/2011 2:23 PM EDT Narrative Resulting Agency Comment Spec In Lab Kimberly Long MD CHEMISTRY ORDERAB LES Performing Organization Address [facility] Co de Phone Number [facility] * (ABNORMAL) FREE THYROXINE INDEX (11/18/2010 2:17 PM EDT) Pathologist [facility] Free Thyroxine Index 4.2(L) 4.5 - 9.5 mcg/dL [facility] Comment: Females: 5. 5-10.5 mcg/dL Blood specimen (specimen) 11/18/2010 2:17 PM EDT 11/18/2010 2:29 PM EDT Kimberly Long MD CHEMISTRY ORDERAB LES Performing Organization Address [facility] Co de Phone Number [facility] * T Uptake (11/18/2010 2:17 PM EDT) T Uptake 1.14 0.80 - 1.30 ratio [facility] Comment: Tup assay is directly proportional to Thyroid binding protein concentration, thus FT4 Index = TT4/Tup. [place] Cord Blood Reference Range: ??0.74-1.28. Blood specimen (specimen) 11/18/2010 2:17 PM EDT 11/18/2010 2:29 PM EDT Kimberly Long MD CHEMISTRY ORDERAB LES Performing Organization Address City/[facility]/ZIP Co de Phone Number [facility] * (ABNORMAL) T4 (11/18/2010 2:17 PM EDT) T4 Total 4.8(L) 5.1 - 10.8 mcg/dL [facility] Comment: Reference Range: Cord Blood: ??6.9-14.4 mcg/dL Females: ??7.2-14.2 mcg/dL Pediatric ranges: ??Interpret with caution-ranges have not been verified Blood specimen (specimen) 11/18/2010 2:17 PM EDT 11/18/2010 2:29 PM EDT Kimberly Long MD CHEMISTRY ORDERAB LES [facility] * TSH (11/18/2010 2:17 PM EDT) [facility] Thyroid Stimulating Hormone 3.95 0.27 - 4.20 mcIU/mL [facility] Blood specimen (specimen) 11/18/2010 2:17 PM EDT 11/18/2010 2:29 PM EDT Kimberly Long MD CHEMISTRY ORDERAB LES Performing Organization Address City/[facility]/ZIP Co de Phone Number [facility] * T3 (11/18/2010 2:17 PM EDT) [facility] T3 Total 102 75 - 170 ng/dL [facility] Blood specimen (specimen) 11/18/2010 2:17 PM EDT 11/18/2010 2:29 PM EDT Kimberly Long MD CHEMISTRY ORDERAB LES [facility] documented in this encounter Visit Diagnoses Diagnosis Hyperthyroidism- Primary Thyrotoxicosis without mention of goiter or other cause, without mention of thyrotoxic crisis or storm documented in this encounter Care Teams Nipple Maker Relationship Specialty Start Date End Date Tameka Riggs APRN PCP - General 06/08/10 08/01/15 documented as of this encounter
--- OUTSIDE RECORDS SUMMARY | 2023-11-20 16:16 | XMS_ITS | Encounter Summary ---
Author Organization [facility] Address [facility] [place] [address] Care Team Providers Care Training And Development Professional Name Role Phone Oneil Norman WILLY Tameka Primary Care Provider + Encounter Details Date Type Department Care Team (Late st Contact Info) Description 05/25/2011 2:00 PM EDT Office [place] [address] Kimberly Long MD [facility] 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 Evening [place] Oil 500 mg Cap Allergies Allergen Reactions [...] Procedure Name Priority Date/Time Associated Diagnosis Comments T3 TOTAL Routine 05/25/2011 2:15 PM EDT Hyperthyroidism TSH SANTY 05/25/2011 2:15 PM EDT Hyperthyroidism documented in this encounter Results * TSH (11/30/2011 2:27 PM EDT) Thyroid Stimulating Hormone 1.88 0.27 - 4.20 mcIU/[facility] Blood specimen (specimen) 11/30/2011 2:27 PM EDT 11/30/2011 2:33 PM EDT Narrative Resulting Agency Comment Spec In Lab Kimberly Long MD CHEMISTRY ORDERAB LES Performing Organization Address [facility] Co de Phone Number [facility] MOL[facility] * T3 (05/25/2011 2:15 PM EDT) T3 Total 102 75 - 170 ng/dL [facility] Blood specimen (specimen) 05/25/2011 2:15 PM EDT 05/25/2011 2:23 PM EDT Narrative Resulting Agency Comment Spec In Lab Kimberly Long MD CHEMISTRY ORDERAB LES Performing Organization Address [facility] Co de Phone Number KISHORE MOLINA * TSH (05/25/2011 2:15 PM EDT) Thyroid Stimulating Hormone 2.38 0.27 - 4.20 mcIU/mL [facility] Blood specimen (specimen) 05/25/2011 2:15 PM EDT 05/25/2011 2:23 PM EDT Narrative Resulting Agency Comment Spec In Lab Kimberly Long MD CHEMISTRY ORDERAB LES Performing Organization Address [facility] de Phone Number KISHORE MOLINA documented in this encounter Visit Diagnoses Diagnosis Hyperthyroidism- Primary Thyrotoxicosis without mention of goiter or other cause, without mention of thyrotoxic crisis or storm documented in this encounter Care Teams Training And Development Professional Relationship Specialty Start Date End Date Tameka Riggs V, EDUCATION AND DEVELOPMENT MANAGER PCP - General 06/08/10 08/01/15 documented as of this encounter
--- OUTSIDE RECORDS SUMMARY | 2023-11-20 16:16 | XMS_ITS | Data Portability ---
Author Organization [place] - [facility], MAIN OFFICE [place] [address] Assessment Encounter Date Assessment Date Assessment LastModified by Organization Details LastModified Time 07/02/2018 07/02/2018 pt pto for help with hyperthyroidism - she would like to be off all her meds. I spent a total of 60 minutes face to face time with this patient and 35 minutes of that time was spent in counseling and coordination of care with that patient as described in the progress note and /or: recommended diagnostic studies Risk factor reduction instructions for treatment and follow-up Not available 07/03/2018 13:32:21 07/17/2018 07/17/2018 pt pto for help with hyperthyroidism - she would like to be off all her meds. I spent a total of 60 minutes face to face time with this patient and 35 minutes of that time was spent in counseling and coordination of care with that patient as described in the progress note and /or: recommended diagnostic studies Risk factor reduction instructions for treatment and follow-up Not available 07/17/2018 13:18:47 Plan of Treatment Reminders Order Date Submit Date Provider Last Modified By Organization Details Last Modified Time Details Appointments None recorded. Lab T3, free, serum or plasma 2018 019 LUIZ Not available 0 05:03:13 TSH + free T4, serum 2018 019 LUIZ Not available 9 11:09:47 T3, total, serum 2018 019 LUIZ Not available 0 05:03:13 T4, total, serum 2018 019 LUIZ Not available 0 05:03:13 thyroglobul in Ab, serum 2018 LUIZ Not available 0 05:03:13 thyroid peroxidase (tpo) Ab, serum 2018 019 LUIZ Not available 0 05:03:13 vitamin B6 (pyridoxine ), plasma 2018 LUIZ Not available 0 05:03:13 copper, serum or plasma 2018 LUIZ Not available 0 05:03:13 vitamin B1 (thiamine), blood 2018 LUIZ Not available 0 05:03:13 vitamin B12 + folate, serum or blood 2018 LUIZ Not available 0 05:03:13 iron + TIBC + ferritin, serum 2018 LUIZ Not available 0 05:03:13 CBC w/ diff 2018 LUIZ Not available 9 11:09:47 vitamin D, 25-hydroxy, total, serum 2018 LUIZ Not available 0 05:03:13 CMP, serum or plasma 2018 LUIZ Not available 9 11:05:13 amylase + lipase, serum 2018 LUIZ Not available 0 05:03:13 DEX (antinuclea r antibodies) screen, serum 2018 LUIZ Not available 0 05:03:13 amylase + lipase, serum 2018 LUIZ Not available 0 05:01:21 lipid panel, blood 2018 019 LUIZ Not available 0 05:01:21 lipoprotein a, qn, serum 2018 LUIZ Not available 0 05:01:21 Referral None recorded. Procedures None recorded. Surgeries None recorded. Imaging None recorded. Medication Orders None recorded. Patient TargetsNo targets recorded. Patient Instructions Encounter Date Encounter Id Patient Instructions Last Modified By Organization Details Last Modified Time 07/02/2018 [id number] hyperthyroidism: care instructions Not available 07/02/2018 11:38:05 goiter: care instructions Not available 07/03/2018 13:34:50 heart murmur: care instructions Not available 07/02/2018 11:38:06 1. Get Bloodwork above 2. Complete diet/symptom log and bring to next visit when we discuss labs. Not available 07/03/2018 13:33:56 07/17/2018 [id number] heart murmur: care instructions Not available 07/24/2018 09:29:47 high cholesterol : care instructions Not available 07/24/2018 09:29:47 1.pick 3 days plant based protein only morning star black orr burgers, lentil soup with brown rice, veggie hot dogs 2. green salad once a day lunch or dinner 3. First meal of the day 4. heart test 08/27 and MRI of lower back/disc Orr dip- black beans and moses and salsa- cilantro, garlic, chuloonawick juice, oil, and cheddar cheese 5. Active b12 /folate 1 tab day- finish your first 6. add adrenal herbs next time after make dietary changes Not available 07/17/2018 13:38:23 Reason for Referral None Reported. Problems Name Problem SNOMED Code Status Onset Date Resolution Date Notes Provider Name and Address Organization Details Recorded Time Hyperthyroi dism 96421978 Active 2018 Kimberly Hernandez ND [address] [place] [address], [address], [facility] 9 13:18:57 Muscle weakness 51876878 Active 2018 Kimberly Hernandez ND [address] [place] [address], [address] 1, [facility] 9 13:19:22 Numbness and tingling sensation of skin 397506807143 Active 2018 Kimberly Hernandez ND [address] [place] [address], [address] 1, [facility] 9 13:19:23 Abdominal bloating 616721568 Active 2018 Kimberly Hernandez ND [address] [place] [address], [address] 1, [facility] 9 13:36:41 Heart murmur 53631702 Active 2018 Kimberly Hernandez ND [address] [place] [address], [address] 1, [facility] 9 13:36:42 Cervical lymphadenop athy 180555469 Active 2018 Kimberly Hernandez ND [address] [place] [address], [address], [facility] 9 13:36:45 Fatigue 98248119 Active 2018 Kimberly Hernandez ND [address] [place] [address], [address] 1, [facility] 9 13:36:48 Hyperlipide meghana 02202617 Active 2018 Kimberly Hernandez ND [address] [place] [address], [address] 1, [facility] 9 13:36:52 Problem Notes None recorded. Procedures Surgical History Date Name Laterality Status Provider Name and Address Organization Details Recorded Time 09/06/19 17 Hemorrhoidectomy completed Kimberly Hernandez ND [address] [place] [address], [address], [facility] 07/02/2018 10:47:20 08/23/19 17 completed Kimberly Hernandez ND [address] [place] [address], [address], [facility] 07/02/2018 10:46:03 07/07/19 17 Colonoscopy completed Kimberly Hernandez ND [address] [place] [address], [address], [facility] 07/02/2018 10:47:21 06/17/19 15 Date of Last Pap Smear completed Kimberly Knights, [address], [address], [facility] 07/02/2018 10:46:03 06/06/19 13 Cataract Surgery completed Kimberly Hernandez [address], [address], [facility] 07/02/2018 10:47:21 06/06/19 11 Colonoscopy completed Kimberly Hernandez[address], [address], [facility] 07/02/2018 10:47:21 05/07/19 10 Cataract Surgery completed Kimberly Hernandez[address], [address], [facility] 07/02/2018 10:47:21 04/06/19 05 Colonoscopy completed Kimberly Hernandez[address], [address], [facility] 07/02/2018 10:47:21 06/05/18 99 Angioplasty completed Kimberly Hernandez[address], [address], [facility] 07/02/2018 10:47:21 07/06/18 94 Arthroscopic Surgery completed Kimberly Hernandez[address], [address], [facility] 07/02/2018 10:47:21 Imaging Results None recorded. Procedure Notes None recorded. Medical Equipment None Reported. Allergies Allergen ID Allergen Name Allergen Category Reaction Reaction Severity Criticality Documentation Date Start Date Code Code System Note Provider Name and Address Organization Details Recorded Time 2221 Bactrim medicatio n Not available Not available Not available 07/02/20181998 30007 9 RxNorm Kimberly Hernandez [address], [address], [facility] 9 10:43:37 222 Substance with sulfonami de structure and antibacte rial mechanism of action (substanc e) medicatio n Not available Not available Not available 07/02/20181998 15160 8003 SNOMED Kimberly Hernandez ND [address] [place], [address] , [facility] 9 10:43:37 2224 iodine medicatio n anaphylax is Not available Not available 07/02/2018 5933 RxNorm Kimberly Hernandez ND [address] [place] [address], [address] , [facility] 9 10:49:20 Medications Name Sig Start Date Stop Date Status Note LastModified by Organization Details LastModified Time metoprolol tartrate 100 mg tablet 1 mg every day by oral route. active Not Available Not Available No t Available spironolactone 25 mg tablet Take 1 tablet every day by oral route. active Not Available Not Available No t Available methimazole 5 mg tablet 1 tablet every day by oral route. active Not Available Not Available No t Available Vitals Date Recorded Body weight Body mass index (BMI) Body height Heart rate Systolic blood pressure Diastolic blood pressure Provider Name and Address Organization Details Last Updated DateTime 9 736051. 25 g 37.1 kg/m2 167.64 cm 52 /min 128 mm[Hg] 76 mm[Hg] Kimberly Hernandez ND [address] [place] [address], [address] [place] [address] 9 10:40:06 Social History Question Answer Notes LastModified by Organizat ion Details LastModified Time Tobacco Smoking Status Former Smoker Kimberly Hernandez ND [address] [place] [address], [address], [facility] 07/02/2018 10:47:06 What Is Your Level Of Alcohol Consumption? Occasional Information not available 07/02/2018 Animal Exposure? Yes Informat ion not available 07/02/2018 Are You Blind Or Do You Have Difficulty Seeing? No Information not available 07/02/2018 What Is Your Level Of Caffeine Consumption? Moderate Information not available 07/02/2018 Are You Currently Employed? Yes Information not available 07/02/2018 Are You Deaf Or Do You Have Serious Difficulty Hearing? No Information not available 07/02/2018 What Type Of Diet Are You Following? REGULAR Information not available 07/02/2018 Education 12 Information no t available 07/02/2018 What Is Your Occupation? [employer] Information not available 07/02/2018 Have There Been Any Changes To Your Family Or Social Situation? No Information no t available 07/02/2018 Hard Of Hearing Or Deaf In One Or Both Ears? Yes Information not available 07/02/2018 Legally Blind In One Or Both Eyes? No Information no t available 07/02/2018 Live Alone Or With Others? Alone Information not available 07/02/2018 Marital Status Informatio n not available 07/02/2018 What Was The Date Of Your Most Recent Tobacco Screening? 07/02/2018 Information not available 08/29/2018 How Many Children Do You Have? 2 Information not available 07/02/2018 What Is Your Parents' Marital Status? Information not available 07/02/2018 What Is Your Relationship Status? Information not available 07/02/2018 Are You Sexually Active? No Information not available 07/02/2018 Number Of Sexual Partners 0 Information not available 07/02/2018 Do You Have Any Siblings? 4 Information not available 07/02/2018 Are You Passively Exposed To Smoke? No Information no t available 07/02/2018 What Types Of Sporting Activities Do You Participate In? None At The Moment Information not available 07/02/2018 General Stress Level Medium Information not available 07/02/2018 Supplements Sangita: A,b12,c,d,e,.f ennugreek, Aloevera, Coloidal Silver Information not available 07/02/2018 How Many Years Have You Smoked Tobacco? 16. Information not available 07/02/2018 Sex: Unknown Functional Status Question Answer Note LastModified by Organization D etails LastModified Time Do you have difficulty walking or climbing stairs? Yes Information not available 07/02/2018 Do you have difficulty doing errands alone? No Information not available 07/02/2018 Are you able to care for yourself? Yes Information n ot available 07/02/2018 Do you have difficulty dressing or bathing? No Information not available 07/02/2018 Mental Status Question Answer Note LastModified by Organization D etails LastModified Time Do you have difficulty concentrating, remembering or making decisions? Yes Information no t available 07/02/2018 Family History Relationship Description Onset Age of this Age Resolved Age Notes LastModified by Organization Details LastModified Time Mother Obesity 50 68 Not available 07/02/2018 10:47:37 Mother Hypercholest erolemia Not available 2018 10:47:37 Father Arthritis 20 73 Not availab le 07/02/2018 10:47:37 Father Depressive disorder 50 73 Not available 2018 10:47:37 Father Coronary arterioscler osis 50 73 Not available 2018 10:47:37 Father Alcohol abuse 25 73 Not available 2018 10:47:37 Father Mental disorder 60 73 Not available 2018 10:47:37 Brother Hypercholest erolemia Not available 2018 10:47:37 Brother Hypercholest erolemia Not available 2018 10:47:37 Brother Arthritis 30 Not availa ble 07/02/2018 10:47:37 Brother Arthritis 30 Not availa ble 07/02/2018 10:47:37 Brother Heart disease 50 Not available 2018 10:47:37 Brother Heart disease 50 Not available 2018 10:47:37 Brother Obesity 40 Not availabl e 07/02/2018 10:47:37 Sister Hypercholest erolemia Not available 2018 10:47:37 Sister Osteoporosis 37 Not avai lable 07/02/2018 10:47:37 Sister Obesity 45 Not available 07/02/2018 10:47:37 Sister Arthritis 30 Not availab le 07/02/2018 10:47:37 Sister Arthritis 30 Not availab le 07/02/2018 10:47:37 Medical History Condition Response Coronary Artery Disease N Other N Gout N Kidney Stones N Blood Diseases N Hyperthyroidism Y Breast Cancer N Blood Transfusion N COPD N Hypothyroidism N Lung Disease N Depression N Defects or Inherited Disease N Developmental or Behavioral Disorders N Breast Problem N Difficulty Swallowing N Anesthesia Complications N Anxiety Disorder Y Meniere's disease N Muscle, Joint, or Bone Problems Y Obesity Y Vision or Eye Problems Y Arthritis Y Infertility N Polyps Y Mental Disorder N Cancer N Stroke N Varicosities N Endometriosis N Bladder or Kidney Problems N High Cholesterol N Liver Disease N Fibromyalgia N Headaches N Kidney Disease N Allergies/Hayfever N Heart Problems Y Sleep problems/insomnia Y Ear or Hearing Problems N Hospitalizations N Thyroid Problems Y GI Problems N ADD/ADHD N Skin Problems N Eating Disorder N Anemia N MRSA exposure N Constipation Y Mental Illness N Ovarian Cancer N Diabetes N Bedwetting N Seizures/Epilepsy N Tuberculosis N AIDS/HIV N Congestive Heart Failure (CHF) N Eczema N Diverticulitis N Abuse/Domestic Violence N Asthma N Reflux/GERD N Hepatitis N Heart Disease N Pulmonary Embolism N Pre-Eclampsia N Hypertension N Chronic Ear Infections N Osteoporosis N Chicken Pox N Autism Spectrum Disorder (ASD) N Thrombophilias N Gynecological History Statement/Question Response Date of LMP 06/26/2008 N On BCP's at Conception? N STIs/STDs N Age at Menarche 14 Age at First Child 32 If Post Menopausal, Age at Menopause 53 08/22/2016 Sexually Active? N Withdrawal Date of Last Pap Smear 06/16/2014 Sexual Problems? N N Obstetrics History GPAL:G 0 P 0 0 0 0 Immunizations Vaccine Type Date Status Provider Name and Address Organization Details Recorded Time MMR 09/06/1962 fransisco Hernandez ND [address] [place] [address], [address], [facility] 07/02/2018 10:47:30 pertussis 09/06/1962 fransisco Hernandez ND [address] [place] [address], [address], [facility] 07/02/2018 10:47:30 mumps 09/06/1962 fransisco Hernandez ND [address] [place] [address], [address], [facility] 07/02/2018 10:47:31 rubella/mumps 09/06/1962 fransisco Hernandez ND [address] [place] [address], [address], [facility] 07/02/2018 10:47:31 measles 09/06/1962 completed Kimberly Hernandez ND [address] [place] [address], [address], [facility] 07/02/2018 10:47:31 polio, unspecified formulation 09[birth year]06/1962 completed Kimberly Hernandez ND [address] [place] [address], [address], [facility] 07/02/2018 10:47:31 DTaP 09/06/1962 completed Kimberly Hernandez ND [address] [place] [address], [address], [facility] 07/02/2018 10:47:31 Past Encounters Encounter ID Performer Location Encounter Start Date Encounter Closed Date Diagnosis/Indication Diagnosis SNOMED-CT Code Diagnosis ICD10 Code [id number] Kimberly Hernandez [place] [facility] [address] [place] [address] 07/02/2018 10:12:44 07/03/2018 13:36:27 Hyperthyroidism 94579977 E05.90 Numbness a nd tingling sensation of skin 6917996360 02 R20.2 Fatigue 57650321 R53.83 Muscle weakness 17370010 M62.81 Cervical lymphadenopathy 832714956 R59.0 Heart murmur 25862456 R0 1.1 Abdominal bloating 28336 9008 R14.0 Goiter 1377485 E04.9 [id number] Kimberly Hernandez [place] [facility] [address] [place] [address] 07/17/2018 12:32:45 07/17/2018 13:46:12 Hyperlipidemia 12789894 E78.5 Hyperthyroidism 66548171 E05.90 Fatigue 30864115 R53.83 Numbness a nd tingling sensation of skin 8195537460 02 R20.2 Muscle weakness 92545504 M62.81 Cervical lymphadenopathy 786918137 R59.0 Heart murmur 14071148 R0 1.1 Abdominal bloating 80231 9008 R14.0 Health Concerns Section Related Observation LastModified by Organization Detai ls LastModified Time None Recorded Concern Status LastModified by Organization Details LastModified Time None Recorded Advance Directives Directive None Recorded Payers Encounter Date Sequence Insurance Name Policy Number Policy Jackson Covered Member ID Jackson Member ID Guarantor Name 07/02/2018 1 [facility] [id number] Tameka Levy Trupti [id number] Tameka Cam Lyles 07/17/2018 1 [facility] [id number] Tameka Lyles [id number] Tameka Lyles Notes Date Note Type Note Provider Name and Address Organization Details Recorded Time 07/02/2018 text/html HPI Notes: she i s on meds for her thyroid- she is hyperthyroid- graves dz dx 2001 high BP and graves 2002 she has ahd thyrois storms anxiety jailene feels like she needs to clear her throat all the time no energy cant lose weight jailene was told to go on FODMAP diet and she has been reading she is confused jailene had reactioin to dye for heart procedure and then she has had iodine in supps and she is ok jailene thinks her house has mold- jailene is getting ready to have knee surgery and she is concerned bc her glands in her neck posterior and occipitus swollen she goes to [facility] PT and she put biofreeze on her neck and pain and swelling went away- she has had some mold and many bad thyroid storms she has aot of mercury fillings she has had mercury teeth pulled and some have been replaced she wants to get off bp meds and thyroid meds and water retention meds other reason she wants to get ready for surgery type of BM- lately variable: colonscopy 201has changed to a type 2 or 6 stool or sts 7 this past week she was type 4 1xday sts she skips a day Nose: stuffy and headaches dull doesnt cough up anything feels phlegm Dizziness - she has last week- she got up and the room was psinning she coulnt focus- she had to hand on to things- and a headaches- lasted for 2 hours but weakneess for 2 days she couldnt sleep on one side but when she fliped over it was better jailene had this once before 2 hours she takes 2 tbsp in am an dpm of colloidal silver jailene has been doctoring with herbs since 1992 murmus since she was a teen agers bloating blood in stools hot ad cold intolerance swollen glands hemorrhoids in past mm weakness and numbness and tingling 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
--- OUTSIDE RECORDS SUMMARY | 2023-11-20 16:16 | XMS_ITS | Encounter Summary ---
Author Organization [facility] [place] [address] Care Team Providers Care Openstack Cloud Consulting Architect Name Role Phone Phyliciatana Norman APRN, Nicole Primary Care Provider + Reason for Visit * Reason Onset Date Comments Other 07/20/2010 Encounter Details Date Type Department Care Team (Late st Contact Info) Description 07/20/2010 [place] [address] Kimberly Long MD [facility] [address] [place] [address] Other Social History Tobacco Use Types Packs/Day Years [...] Miscellaneous Notes * Telephone Encounter - Andria Alarcon LPN - 08/04/2010 2:38 PM EDT Returning call to Nola Andres at which time the following message from Dr Banks was left on her voice and also to return my call should they have any further questions. * Telephone Encounter - Reno Banks MD - 07/21/2010 5:54 PM EDT She was in reasonable control in June and her medication (methimazole) was increased from 10 to 15 mg. She should be fine for her tooth extraction. Thyroid storm would only Be precipitated by infection. * Telephone Encounter - Andria Alarcon LPN [...] on filedocumented in this encounter Care Teams Openstack Cloud Consulting Architect Relationship Specialty Start Date End Date Tameka Riggs APRN PCP - General 06/08/10 08/01/15 documented as of this encounter
--- OUTSIDE RECORDS SUMMARY | 2023-11-20 16:16 | XMS_ITS | Referral Summary ---
Author Organization [facility] Address [address] [place] [address] Care Team Providers Care Bottle Capper Name Role Phone Unknown, Provider Primary Care Provider [phone] Social History Tobacco Use Types Packs/Day Years Used Date Smoking Tobacco: Never Assessed Interpersonal Safety Answer Date Record ed Physically Hurt Never 09/07/2019 Verbally Threaten Not on file 09/07/2019 Sex and Gender Information Value Date Recorded Sex Assigned at Not on file Gender Identity Not on file Sexual Orientation Not on file Plan of Treatment Not on file Care Teams Bottle Capper Relationship Specialty Start Date End Date Unknown, Provider, PCP - General 06/24/10
--- OUTSIDE RECORDS SUMMARY | 2023-11-20 16:16 | XMS_ITS | Encounter Summary ---
Author Organization [facility] Address [facility] [place] [address] Care Team Providers Care Journey Lineman Name Role Phone Oneil Ester WILLY Tameka Primary Care Provider + Reason for Visit * Reason Onset Date Comments Medication Refill 06/02/2010 Encounter Details Date Type Department Care Team (Late st Contact Info) Description 06/02/2010 Refill [place] [address] Kimberly Long MD [facility] [address] [place] [address] Hyperthyroidism Social History Tobacco Use Types Packs/Day Years Used Date Smoking Tobacco: Never Assessed Sex and Gender Information Value Date Recorded [...] to Krishna Hunter Lab slip faxed to [facility] documented in this encounter Plan of Treatment Not on file documented as of this encounter Visit Diagnoses Diagnosis Hyperthyroidism Thyrotoxicosis without mention of goiter or other cause, without mention of thyrotoxic crisis or storm documented in this encounter Care Teams Journey Lineman Relationship Specialty Start Date End Date Tameka Riggs V, REFRIGERATION PLANT OPERATOR PCP - General 06/08/10 08/01/15 documented as of this encounter
--- OUTSIDE RECORDS SUMMARY | 2023-11-20 16:16 | XMS_ITS | Encounter Summary ---
Author Organization [facility] Address [address] [place] [address] Care Team Providers Care Irrigation Manager Name Role Phone Unknown, Provider Primary Care Provider [phone] Encounter Details Date Type Department Care Team (Late st Contact Info) Description 12/17/2021 Lab Requisition [facility] Pathology & Laboratory Medicine - [address] [address] Outr Resulting Lab, Provider Social History Tobacco Use Types Packs/Day [...] Procedure Name Priority Date/Time Associated Diagnosis Comments RHEUMATOID FACTOR Routine 12/16/2021 14: 55 EST ANTI NUCLEAR AB (DEX), IFA Routine 12/16/2021 14:55 EST documented in this encounter Results * RHEUMATOID FACTOR (12/16/2021 14:55 EST) Rheumatoid Factor <8.6 <12.0 IU/mL 12/18/2021 17:44 EST [facility] Blood VENOUS BLOOD / Unknown 12/16/2021 14:55 EST 12/18/2021 17:15 EST Provider Outr Resulting Lab CHEMISTRY & BLOOD GAS ORDERABLES Performing Organization Address City/[facility]/ZIP Co de Phone Number [facility] [address] [place] [address] * ANTI NUCLEAR AB (DEX), IFA (12/16/2021 14:55 EST) DEX Interpretation Negative Negative 2021 13:45 EST [facility] Comment:No titer performed, DEX Screen is negative. Blood VENOUS BLOOD / Unknown 12/16/2021 14:55 EST 12/18/2021 17:15 EST Narrative [facility] - 12/19/2021 13:45 EST Results were obtained with the INOVA NOVA Lite HEp-2 DEX Kit by indirect immunofluorescence. Provider Outr Resulting Lab IMMUNOLOGY A ND SEROLOGY ORDERABLES Performing Organization Address City/[facility] Co de Phone Number [facility] [address] [place] [phone] documented in this encounter Visit Diagnoses Not on filedocumented in this encounter Care Teams Irrigation Manager Relationship Specialty Start Date End Date Unknown, Provider, PCP - General 06/24/10 documented as of this encounter
--- OUTSIDE RECORDS SUMMARY | 2023-11-20 16:16 | XMS_ITS | Encounter Summary ---
Author Organization [facility] Address [address] [place] [address] Care Team Providers Care Production Welder Name Role Phone Unknown, Provider Primary Care Provider Encounter Details Date Type Department Care Team (Latest Contact Info) Description 04/20/2021 Lab Requisition [facility] Pathology & Laboratory Medicine - [address] [address] Wilma Spears FNP [address] [place] [address] Encounter for general adult medical examination without abnormal findings; Encounter for screening for malignant neoplasm of cervix; Encounter for screening for human papillomavirus (HPV) Social History Tobacco Use Types Packs/Day Years [...] Procedure Name Priority Date/Time Associated Diagnosis Comments PAP TEST Today 04/19/2021 14:00 EDT Encounter for general adult medical examination without abnormal findings Encounter for screening for malignant neoplasm of cervix Encounter for screening for human papillomavirus (HPV) HPV DNA DETECTION WITH GENOTYPING, PCR Today 04/19/2021 14:00 EDT Encounter for general adult medical examination without abnormal findings Encounter for screening for malignant neoplasm of cervix Encounter for screening for human papillomavirus (HPV) documented in this encounter Results * HUMAN PAPILLOMAVIRUS (HPV) DETECTION-HIGH RISK TYPES (04/19/2021 14:00 EDT) HPV other High Risk types, PCR Negative Negative 04/28/2021 7:19 EDT [facility] Comment:No E6 or E7 mRNA is detected from HPV types 16,18,31,33,35,39,45,51,52,56,58,59,66, and 68 by form tamper mediated amplification. Papanicolaou smear specimen (specimen) CERVIX UTERI STRUCTURE / Unknown 04/19/2021 14:00 EDT 04/26/2021 13:35 EDT Wilma Spears APPLIANCE COUNSELOR MICROBIOLOGY - GENER AL ORDERABLES [facility] [address] [place] [address] * PAP TEST (04/19/2021 14:00 EDT) Specimens A. Cervix and/or Endocervix , ThinPrep Imaging System with Manual Evaluation 04/28/2021 7:19 T [facility] Specimen Adequacy Satisfactory for Evaluation - transformation zone component present 04/28/2021 7:19 [facility] General Categorization Negative for intraepithelial lesion or malignancy 04/28/2021 7:19 T [facility] Attestation . 04/28/2021 7:19 [facility] at 0719 Clinical History See below 04/29/19 7:19 EDT [facility] HPV The result for the Human Papillomavirus (HPV) Detection-High Risk Types is Negative. No E6 or E7 mRNA is detected from HPV types 16,18,31,33,35,39 ,45,51,52,56,58,5 9,66, and 68 by form tamper mediated amplification.Ashleigh ting was performed on specimen [id number] and was resulted on 04/28/2021 0716 EDT by MONIQUE, LAB INSTRUMENT RESULTS IN 04/28/2021 7:19 EDT [facility] Performing Lab [facility] 04/28/2021 7:19 EDT [facility] Scanned Images 04/28/2021 7:19 EDT [facility] Papanicolaou smear specimen (specimen) CERVIX UTERI STRUCTURE / Unknown 04/19/2021 14:00 EDT 04/20/2021 13:47 EDT Wilma Regan PEREZ PATHOLOGY ORDERABLES [facility] [address] [place] [address] documented in this encounter Visit Diagnoses Diagnosis Encounter for general adult medical examination without abnormal findings Unspecified general medical examination Encounter for screening for malignant neoplasm of cervix Screening for malignant neoplasm of the cervix Encounter for screening for human papillomavirus (HPV) Special screening examination for human papillomavirus (HPV) documented in this encounter Care Teams Production Welder Relationship Specialty Start Date End Date Unknown, Provider, PCP - General 06/24/10 documented as of this encounter
--- OUTSIDE RECORDS SUMMARY | 2023-11-20 16:16 | XMS_ITS | Clinical Summary ---
Author Organization [facility] Address [address] [place] [address] Care Team Providers Care Petroleum Production Engineer Name Role Phone Unknown, Provider Primary Care Provider Social History Tobacco Use Types Packs/Day Years Used Date Smoking Tobacco: Never Assessed Interpersonal Safety Answer Date Record ed Physically Hurt Never 09/07/2019 Verbally Threaten Not on file 09/07/2019 Sex and Gender Information Value Date Recorded Sex Assigned at Not on file Gender Identity Not on file Sexual Orientation Not on file Plan of Treatment Health Maintenance Due Date Last Done Comments Hepatitis C Screen 1955 RSV Immunization ( o r 60+ Years) (1 - 1-dose 60+ series) 2016 Fall Risk Screening 2021 COVID-19 Vaccine ( season) 2022 Care Teams Petroleum Production Engineer Relationship Specialty Start Date End Date Unknown, Provider, PCP - General 06/24/10
--- OUTSIDE RECORDS SUMMARY | 2023-11-20 16:16 | XMS_ITS | Encounter Summary ---
Author Organization [facility] Address [address] [place] [address] Care Team Providers Care Rn Medical Surgical Name Role Phone Unknown, Provider Primary Care Provider [phone] Encounter Details Date Type Department Care Team (Late st Contact Info) Description 03/30/2015 Results Only [facility]- [facility] [phone] Libertad Tamez MD [facility] [place] [address] Social History Tobacco Use Types Packs/Day Years Used Date Smoking Tobacco: Never Assessed Sex and Gender Information Value Date Recorded Sex Assigned at Not on file Gender Identity Not on file Sexual Orientation Not on file documented as of this encounter Plan of Treatment Not on file documented as of this encounter Procedures Procedure Name Priority Date/Time Associated Diagnosis Comments PAP TEST- RESULT ONLY Routine 03/30/2015 0:00 EST documented in this encounter Results * PAP TEST- RESULT ONLY (03/30/2015 0:00 EST) Pathology Report: CYTOPATHOLOGY REPORT Reports generated via electronic interface contain original data; however they are lacking the format of the original report. Caution should be taken when reading/interpreti ng unformatted reports. Name: ? ASH LYLES ? Accession #: ? [id number] ? : ? 1955 (Age: 60) ??F ? N #: ? [id number] ?Collect Date: ? 03/30/2015 ? Location: ? [facility] ? Receive Date: ? 03/31/2015 ? Provider: LIBERTAD TAMEZ MD Copy to: ASH CERRATO ? Final Report SPECIMEN ADEQUACY ? Satisfactory for Evaluation - transformation zone component present GENERAL CATEGORIZATION ? Negative for Intraepithelial Lesion or Malignancy ?? Menstrual/Pregnanc y Status: ??Post Menopausal Hormonal/Contracep tive status: None Specimen/Source: ??Pap Test, Cervix/Endocervix, ThinPrep Imaging System with manual evaluation Document reviewed and electronically signed by: ? Zenaida Gandara, CT(ASCP) ? Report ??Date: 04/07/2015 14:00 HPV with Pap Test ? Date Ordered: ? 04/07/2015 ? Status: ?? Signed Out ?Date Complete: ? 04/09/2015 ? By: ??System Interface ? Date Reported: ? 04/09/2015 ? Interpretation RESULT: Negative for HPV. No E6 or E7 mRNA is detected from HPV types 16,18,31,33,35, 39,45,51,52,56,58, 59,66, and 68 by dermatologist managing partner mediated amplification. Comments Document reviewed and electronically signed by: ? System Interface ? Report date: 04/09/2015 By the signature above, the attending physician certifies that he/she has personally conducted a gross and/or microscopic examination of the described specimens and rendered or confirmed the above diagnosis. End of Report [facility] 03/30/2015 03/31/2015 Libertad Tamez MD PATHOLOGY ORDERABLES [facility] [address] [place] [address] documented in this encounter Visit Diagnoses Not on filedocumented in this encounter Care Teams Rn Medical Surgical Relationship Specialty Start Date End Date Unknown, Provider, PCP - General 06/24/10 documented as of this encounter
--- OUTSIDE RECORDS SUMMARY | 2023-11-20 16:16 | XMS_ITS | Encounter Summary ---
Author Organization [facility] Address [address] [place] [address] Care Team Providers Care Sales Marketing Director Name Role Phone Unknown, Provider Primary Care Provider [phone] Encounter Details Date Type Department Care Team (Late st Contact Info) Description 04/28/2022 Lab Requisition [facility] Pathology & Laboratory Medicine - [address] [address] Outr Resulting Lab, Provider Social History Tobacco [...] Procedure Name Priority Date/Time Associated Diagnosis Comments T3, TOTAL Routine 04/27/2022 15:10 EDT documented in this encounter Results * T3, TOTAL (04/27/2022 15:10 EDT) T3, Total 134 97 - 169 ng/dL 04/28/2022 19:31 EDT [facility] Blood VENOUS BLOOD / Unknown 04/27/2022 15:10 EDT 04/28/2022 18:43 EDT Provider Outr Resulting Lab CHEMISTRY & BLOOD GAS ORDERABLES [facility] [address] [place] [address] documented in this encounter Visit Diagnoses Not on filedocumented in this encounter Care Teams Sales Marketing Director Relationship Specialty Start Date End Date Unknown, Provider, PCP - General 06/24/10 documented as of this encounter
--- OUTSIDE RECORDS SUMMARY | 2023-11-20 16:16 | XMS_ITS | Encounter Summary ---
Author Organization [facility] Address [address] [place] [address] Care Team Providers Care Continuous Process Coffee Roaster Name Role Phone Unknown, Provider Primary Care Provider Encounter Details Date Type Department Care Team (Late st Contact Info) Description 04/01/2019 Lab Requisition [facility] Pathology & Laboratory Medicine - [address] [address] Mansi Beltre, DO [address] [place] [address] Unspecified acute appendicitis; Sepsis, unspecified organism (HCC-CMS); Thyrotoxicosis with diffuse goiter without thyrotoxic crisis or storm; Essential (primary) hypertension; Body mass index (bmi) 36.0-36.9, adult; Encounter for prophylactic measures, unspecified; Acute appendicitis with perforation and localized peritonitis, without abscess Social History Tobacco Use Types Packs/Day Years Used Date Smoking Tobacco: Never Assessed Sex and Gender Information Value Date Recorded Sex Assigned at Not on file Gender Identity Not on file Sexual Orientation Not on file documented as of this encounter Plan of Treatment Not on file documented as of this encounter Procedures Procedure Name Priority Date/Time Associated Diagnosis Comments SURGICAL PATHOLOGY Today 03/30/2019 14 :45 EST Unspecified acute appendicitis Sepsis, unspecified organism (HCC-CMS) Thyrotoxicosis with diffuse goiter without thyrotoxic crisis or storm Essential (primary) hypertension Body mass index (bmi) 36.0-36.9, adult Encounter for prophylactic measures, unspecified Acute appendicitis with perforation and localized peritonitis, without abscess documented in this encounter Results * SURGICAL PATHOLOGY (03/30/2019 14:45 EST) Final Diagnosis A. APPENDIX, APPENDECTOMY: - Severe acute suppurative appendicitis and periappendicitis. 04/02/2019 13:58 [facility] at 1358 Clinical History Appendicitis 04/02/2019 13:58 [facility] Attestation By the signature below, the attending physician certifies that they have 1) personally conducted a gross and/or microscopic examination of the described specimen(s), and/or personally interpreted the results of laboratory testing of the described specimen(s), and 2) personally rendered or confirmed the above diagnosis. 04/02/2019 13:58 [facility] at 1358 Gross Description A. Received in formalin labelled with proper patient identification (initials B, N) and appendix +contents is a 6.0 cm in length appendix stapled along its margin. The appendiceal surface is smooth, intact to ragged. Received detached within the same container are irregular portions of periappendiceal adipose tissue aggregating 3.8 x 3.2 x 2.0 cm. The tissue surfaces are dusky brown yellow and show dusky harley areas suggested of exudate coating. Sections through 1 of these tissues show a hemorrhagic appendiceal wall tissue measuring up to 0.8 cm in length, suggestive of perforated tip. The appendix ranges from 0.6 to 0 0.9 cm in diameter. Sections through the longer appendiceal segment show a hemorrhagic wall ranging from 0.2 to 0.4 cm in thickness. The lumen contains minimal bloody fluid. A fecalith is not identified. Director Client Services sections are submitted as follows: BLOCK NARAYANAN A1- appendiceal margin, en face and presumed appendiceal tip for detached tissue A2- leasing representative sections mid appendix Allie Augustin 04/01/2019 10:40 04/02/2019 13:58 [facility] Scanned Images 04/02/2019 13:58 [facility] Tissue ENTIRE APPENDIX / Unknown 03/30/2019 14:45 EST 04/01/2019 8:28 EST Mansi Beltre DO PATHOLOGY ORDERABLES [facility] [address] [place] [address] documented in this encounter Visit Diagnoses Diagnosis Unspecified acute appendicitis Sepsis, unspecified organism ([facility]) Thyrotoxicosis with diffuse goiter without thyrotoxic crisis or storm Essential (primary) hypertension Unspecified essential hypertension Body mass index (bmi) 36.0-36.9, adult Encounter for prophylactic measures, unspecified Acute appendicitis with perforation and localized peritonitis, without abscess documented in this encounter Care Teams Continuous Process Coffee Roaster Relationship Specialty Start Date End Date Unknown, Provider, PCP - General 06/24/10 documented as of this encounter
--- OUTSIDE RECORDS SUMMARY | 2023-11-20 16:16 | XMS_ITS | Encounter Summary ---
Author Organization [facility] Address [facility] [place] [address] Care Team Providers Care Curing Press Operator Name Role Phone Oneil Ester WILLY Tameka Primary Care Provider + Reason for Visit * Reason Comments Follow-up Encounter Details Date Type Department Care Team (Late st Contact Info) Description 11/30/2011 2:00 PM EDT Office [place] [address] Kimberly Long MD [facility] [address] [place] [address] Hyperthyroidism (Primary Dx) Discharge Disposition: Home Social [...] kg (209 lb 3.2 oz) 11/30/2011 2:47 P M EDT Height 168.9 cm (5' 6.5) 11/30/2011 2:47 PM EDT Body Mass Index 33.26 11/30/2011 2:47 PM EDT documented in this encounter Progress Notes * Kimberly Long MD - 11/30/2011 3:36 PM [...] mouth every 6 hours as needed for Pain.300 tablet 2 ??? metoprolol succinate (TOPROL XL) 100 mg XL tablet Take 1 tablet by mouth 2 times daily. 30 tablet ??? UNABLE TO FIND Take 1 tablet by mouth daily. Bio-Immunozyme Forte ??? CIS Free Text Med - Garlic ??? ascorbic acid (VITAMIN C) 1,000 mg tablet ??? Evening [place] Oil 500 mg Cap Allergies Allergen Reactions [...] Name Priority Date/Time Associated Diagnosis Comments TSH STAT 11/30/2011 2:27 PM EDT Hyperthyroidism documented in this encounter Results * TSH (05/30/2012 2:35 PM EDT) Thyroid Stimulating Hormone 1.78 0.27 - 4.20 mcIU/mL CERNER MILLENNIUM Blood specimen (specimen) 05/30/2012 2:35 PM EDT 05/30/2012 2:40 PM EDT Narrative Resulting Agency Comment Spec In Lab Kimberly Long MD CHEMISTRY ORDERAB LES Performing Organization Address [facility] de Phone Number [facility] [employer] * TSH (11/30/2011 2:27 PM EDT) Thyroid Stimulating Hormone 1.88 0.27 - 4.20 mcIU/mL CERNER MILLENNIUM Blood specimen (specimen) 11/30/2011 2:27 PM EDT 11/30/2011 2:33 PM EDT Narrative Resulting Agency Comment Spec In Lab Kimberly Long MD CHEMISTRY ORDERAB LES Performing Organization Address [facility] Co de Phone Number [facility] [employer] documented in this encounter Visit Diagnoses Diagnosis Hyperthyroidism- Primary Thyrotoxicosis without mention of goiter or other cause, without mention of thyrotoxic crisis or storm documented in this encounter Care Teams Curing Press Operator Relationship Specialty Start Date End Date Tameka Riggs V, WILLY PCP - General 06/08/10 08/01/15 documented as of this encounter
--- OUTSIDE RECORDS SUMMARY | 2023-11-20 16:16 | XMS_ITS | Encounter Summary ---
Author Organization [facility] Address [facility] [place] [address] Care Team Providers Care Paperhanger Apprentice Name Role Phone Mookie Kebede MD Primary Care Provider [phone] Reason for Visit * Reason Onset Date Comments Labs Only 05/30/2010 Encounter Details Date Type Department Care Team (Late st Contact Info) Description 05/30/2010 [place] [address] Kimberly Long MD [facility] [place] [address] Labs Only Social History Tobacco Use Types Packs/Day Years Used Date Smoking Tobacco: Never Assessed Sex and Gender Information Value Date Recorded Sex Assigned at Not on file Gender Identity Not on file Sexual Orientation Not on file documented as of this encounter Miscellaneous Notes * Telephone Encounter - Kimberly Long MD - 05/30/2010 1:08 PM EDT Lab documented in this encounter Plan of Treatment Not on file documented as of this encounter Results * T Uptake (06/08/2010 11:23 AM EDT) T Uptake 0.93 0.80 - 1.30 ratio [facility] Comment: Tup assay is directly proportional to Thyroid binding protein concentration, thus FT4 Index = TT4/Tup. Cord Blood Reference Range: ??0.74-1.28. Blood specimen (specimen) 06/08/2010 11:23 AM EDT 06/08/2010 11:37 AM EDT Kimberly Long MD CHEMISTRY ORDERAB LES [facility] * T4 (06/08/2010 11:23 AM EDT) T4 Total 10.1 5.1 - 10.8 mcg/dL [facility] Comment: Reference Range: [place] Cord Blood: ??6.9-14.4 mcg/dL Females: ??7.2-14.2 mcg/dL Pediatric ranges: ??Interpret with caution-ranges have not been verified Blood specimen (specimen) 06/08/2010 11:23 AM EDT 06/08/2010 11:37 AM EDT Kimberly Long MD CHEMISTRY ORDERAB LES Performing Organization Address City/[facility]/ZIP Co de Phone Number [facility] * (ABNORMAL) TSH (06/08/2010 11:23 AM EDT) Thyroid Stimulating Hormone 0.01(L) 0.27 - 4.20 mcIU/mL [facility] Blood specimen (specimen) 06/08/2010 11:23 AM EDT 06/08/2010 11:37 AM EDT Kimberly Long MD CHEMISTRY ORDERAB LES Performing Organization Address City/[facility]/ZIP Co de Phone Number [facility] documented in this encounter Visit Diagnoses Diagnosis Hyperthyroidism- Primary Thyrotoxicosis without mention of goiter or other cause, without mention of thyrotoxic crisis or storm documented in this encounter Care Teams Paperhanger Apprentice Relationship Specialty Start Date End Date Mookie Kebede MD [address] [place] [address] PCP - General 12/28/09 06/07/10 documented as of this encounter
--- OUTSIDE RECORDS SUMMARY | 2023-11-20 16:16 | XMS_ITS | Encounter Summary ---
Author Organization [facility] Address [facility] [place] [address] Care Team Providers Care Biochemist Name Role Phone Oneil SUNIL NormanN Tameka Primary Care Provider + Reason for Visit * Reason Comments Graves' Disease Encounter Details Date Type Department Care Team (Late st Contact Info) Description 05/30/2012 2:30 PM EDT Office [place] [address] Kimberly Long MD [facility] [place] [address] Hyperthyroidism (Primary Dx) Discharge Disposition: Home Social [...] Progress Notes * Kimberly Long MD - 05/30/2012 3:43 PM [...] (VITAMIN C) 1,000 mg tablet ??? Evening [place] Oil 500 mg Cap Allergies Allergen Reactions ??? Iodine-Iodine Containing CIS - Anaphylaxis, CIS - Anaphylaxis ??? Sulfa (Sulfonamide Antibiotics) CIS - Hives, CIS - Hives SOCIAL HISTORY: She is a . 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 She is a nonsmoker, nondrinker. She is hoping to move to [place] at some point, but may wait a [...] Priority Date/Time Associated Diagnosis Comments TSH STAT 05/30/2012 2:35 PM EDT Hyperthyroidism documented in this encounter Results * TSH (05/30/2012 2:35 PM EDT) Thyroid Stimulating Hormone 1.78 0.27 - 4.20 mcIU/mL KISHORE MOLINA Blood specimen (specimen) 05/30/2012 2:35 PM EDT 05/30/2012 2:40 PM EDT Narrative Resulting Agency Comment Spec In Lab Kimberly Long MD CHEMISTRY ORDERAB LES [facility] [employer] documented in this encounter Visit Diagnoses Diagnosis Hyperthyroidism- Primary Thyrotoxicosis without mention of goiter or other cause, without mention of thyrotoxic crisis or storm documented in this encounter Care Teams Biochemist Relationship Specialty Start Date End Date Tameka Riggs APRN PCP - General 06/08/10 08/01/15 documented as of this encounter
--- OUTSIDE RECORDS SUMMARY | 2023-11-20 16:16 | XMS_ITS | Encounter Summary ---
Author Organization [facility] Address [address] [place] [address] Care Team Providers Care Pearl Fisherman Name Role Phone Unknown, Provider Primary Care Provider [phone] Encounter Details Date Type Department Care Team (Late st Contact Info) Description 06/22/2010 Results Only [facility] Laboratory Services - [facility] ([facility]) [address], [place] [id number] Ash Riggs ARNP [address] [place] [address] Social History Tobacco Use Types Packs/Day Years [...] Diagnosis Comments PAP TEST- RESULT ONLY Routine 06/22/2010 0:00 EDT documented in this encounter Results * PAP TEST- RESULT ONLY (06/22/2010 0:00 EDT) Pathology Report: CYTOPATHOLOGY REPORT ? Reports generated via electronic interface contain original data; ? however they are lacking the format of the original report. ? Caution should be taken when reading/interpreti ng unformatted reports. ? Name: ? ASH LYLES ? Accession #: ? [id number] ? : ? 1955 (Age: 55) ??F ?Collect Date: ? 06/22/2010 ? Location: ? [facility] ? Receive Date: ? 06/24/2010 ? Provider: [employer]SH [employer] ? Copy to: ? Final Report ? SPECIMEN ADEQUACY ? Satisfactory for Evaluation ? - transformation zone component present ? GENERAL CATEGORIZATION ? Negative for Intraepithelial Lesion or Malignancy ? Last Menstural Period: 2009 ? Specimen/Source: ??Pap Test, Cervix/Endocervix, ThinPrep Imaging System with ? manual evaluation ? Document reviewed and electronically signed by: ? [employer] [place], [place](ASCP) ? Report ??Date: 06/29/2010 09:37 ? HPV with Pap Test ? Date Ordered: ? 06/29/2010 ? Status: ?? Signed Out ?Date Complete: ? 07/04/2010 ? By: ??System Interface ? Date Reported: ? 07/04/2010 ? Interpretation ? RESULT: Negative for HPV types 16, 18, 31, 33, 35, 39, 45, 51, 52, ? 56, 58, 59, and 68. ? Comments ? Document reviewed and electronically signed by: ? System Interface ? Report date: 07/04/2010 ? By the signature above, the attending physician certifies that he/she has ? personally conducted a gross and/or microscopic examination of the described ? specimens and rendered or confirmed the above diagnosis. ? End of Report ? TOREY WALLACE 06/22/2010 06/24/2010 Ash CERRATO PATHOLOGY ORDERABLE [facility] [address] [place] [address] documented in this encounter Visit Diagnoses Not on filedocumented in this encounter Care Teams Pearl Fisherman Relationship Specialty Start Date End Date Unknown, Provider, PCP - General 06/24/10 documented as of this encounter
--- OUTSIDE RECORDS SUMMARY | 2023-11-20 16:16 | XMS_ITS | Encounter Summary ---
Author Organization [facility] Address [facility] [place] [address] Care Team Providers Care Groundskeeping Maintenance Name Role Phone Oneil SUNIL NormanN Tameka Primary Care Provider + Reason for Visit * Reason Comments Hyperthyroidism follow up Encounter Details Date Type Department Care Team (Late st Contact Info) Description 06/08/2010 10:30 AM EDT Office [place] [address] Kimberly Long MD [facility] [place] [address] Hyperthyroidism (Primary Dx) Discharge Disposition: Home Social [...] - documented in this encounter Progress Notes * Kimberly Long MD - 06/08/2010 12:17 PM [...] [place] about moving [place], maybe to [place]. She has some friends and family there. Current outpatient prescriptions ordered prior to encounter Medication Sig Dispense Refill ??? CIS Free Text Med - Garlic ??? ascorbic acid (VITAMIN C) 1,000 mg tablet ??? metoprolol succinate (TOPROL XL) 50 mg 24 hr tablet 50mg, PO, Twice daily ??? MV,Ca,Lvf-WL-Ksaplo No.159 (ESTROVEN REGULAR STRENGTH) 400 mcg Tab ??? Evening Levant Oil 500 mg Cap Allergies Allergen Reactions [...] Scheduled Orders Name Type Priority Associated Diagnoses Orde r Schedule TSH Lab Routine Hyperthyroidism Expected: 07/06/2010, Expires: 2 T3 Lab Routine Hyperthyroidism Expected: 07/06/2010, Expires: 2 documented as of this encounter Procedures Procedure Name Priority Date/Time Associated Diagnosis Comments FREE THYROXINE INDEX Routine 06/08/2010 11:23 AM EDT T UPTAKE Routine 06/08/2010 11:23 AM EDT Hyperthyroidism TSH Routine 06/08/2010 11:23 AM EDT Hyperthyroidism T4 TOTAL Routine 06/08/2010 11:23 AM EDT Hyperthyroidism documented in this encounter Results * T Uptake (11/18/2010 2:17 PM EDT) T Uptake 1.14 0.80 - 1.30 ratio [facility] Comment: Tup assay is directly proportional to Thyroid binding protein concentration, thus FT4 Index = TT4/Tup. Bypro Cord Blood Reference Range: ??0.74-1.28. Blood specimen (specimen) 11/18/2010 2:17 PM EDT 11/18/2010 2:29 PM EDT Kimberly Long MD CHEMISTRY ORDERAB LES Performing Organization Address City/State/[facility] Co de Phone Number [facility] * (ABNORMAL) T4 (11/18/2010 2:17 PM EDT) T4 Total 4.8(L) 5.1 - 10.8 mcg/dL [facility] Comment: Reference Range: Cord Blood: ??6.9-14.4 mcg/dL Females: ??7.2-14.2 mcg/dL Pediatric ranges: ??Interpret with caution-ranges have not been verified Blood specimen (specimen) 11/18/2010 2:17 PM EDT 11/18/2010 2:29 PM EDT Kimberly Long MD CHEMISTRY ORDERAB LES Performing Organization Address [facility] Co de Phone Number [facility] * TSH (11/18/2010 2:17 PM EDT) Thyroid Stimulating Hormone 3.95 0.27 - 4.20 mcIU/mL [facility] Blood specimen (specimen) 11/18/2010 2:17 PM EDT 11/18/2010 2:29 PM EDT Kimberyl Long MD CHEMISTRY ORDERAB LES Performing Organization Address [facility] Co de Phone Number [facility] * T3 (11/18/2010 2:17 PM EDT) T3 Total 102 75 - 170 ng/dL [facility] Blood specimen (specimen) 11/18/2010 2:17 PM EDT 11/18/2010 2:29 PM EDT Kimberly Long MD CHEMISTRY ORDERAB LES Performing Organization Address City/State/[facility] Co de Phone Number [facility] * (ABNORMAL) REFLEX LAB-FREE THYROXINE INDEX (06/08/2010 11:23 AM EDT) Pathologist [facility] Free Thyroxine Index 10.9(H) 4.5 - 9.5 mcg/dL [facility] Comment: Females: 5. 5-10.5 mcg/dL Blood specimen (specimen) 06/08/2010 11:23 AM EDT 06/08/2010 11:37 AM EDT Kimberly Long MD CHEMISTRY ORDERAB LES Performing Organization Address [facility] de Phone Number [facility] * T Uptake (06/08/2010 11:23 AM EDT) Pathologist [facility] T Uptake 0.93 0.80 - 1.30 ratio [facility] Comment: Tup assay is directly proportional to Thyroid binding protein concentration, thus FT4 Index = TT4/Tup. Cord Blood Reference Range: ??0.74-1.28. Blood specimen (specimen) 06/08/2010 11:23 AM EDT 06/08/2010 11:37 AM EDT Kimberly Long MD CHEMISTRY ORDERAB LES Performing Organization Address [facility] de Phone Number [facility] * T4 (06/08/2010 11:23 AM EDT) [facility] T4 Total 10.1 5.1 - 10.8 mcg/dL [facility] Comment: Reference Range: Bypro Cord Blood: ??6.9-14.4 mcg/dL Females: ??7.2-14.2 mcg/dL Pediatric ranges: ??Interpret with caution-ranges have not been verified Blood specimen (specimen) 06/08/2010 11:23 AM EDT 06/08/2010 11:37 AM EDT Kimberly Long MD CHEMISTRY ORDERAB LES Performing Organization Address [facility] Co de Phone Number [facility] * (ABNORMAL) TSH (06/08/2010 11:23 AM EDT) Thyroid Stimulating Hormone 0.01(L) 0.27 - 4.20 mcIU/mL [facility] Blood specimen (specimen) 06/08/2010 11:23 AM EDT 06/08/2010 11:37 AM EDT Kimberly Long MD CHEMISTRY ORDERAB LES [facility] documented in this encounter Visit Diagnoses Diagnosis Hyperthyroidism- Primary Thyrotoxicosis without mention of goiter or other cause, without mention of thyrotoxic crisis or storm documented in this encounter Care Teams Groundskeeping Maintenance Relationship Specialty Start Date End Date Tameka Riggs APRN PCP - General 06/08/10 08/01/15 documented as of this encounter
[2023-11-20 21:54] LABS: ALT 37 U/L (14-59); AST 26 U/L (15-37); Albumin 3.8 g/dL (3.4-5.0); Alkaline Phosphatase 139 U/L (46-116); BUN 10 mg/dL (7-18); Bilirubin, Total 0.36 mg/dL (0.2-1.0); CREATININE 0.9 mg/dL (0.55-1.02); Calcium 9.9 mg/dL (8.5-10.1); Calculated LDL 59 mg/dL (<100); Chloride 108 mmol/L (98-107); Cholesterol 183 mg/dL (<200); Estimated GFR 70.07 (mL/min/1.73m2); FREE T4 0.91 ng/dL (0.76-1.46); Glucose 106 mg/dL (74-106); HDL Cholesterol 61 mg/dL (40-60); Potassium 4.1 mmol/L (3.5-5.1); Sodium 146 mmol/L (136-145); TSH 2.21 uIU/mL (0.36-3.74); Total Protein 7.4 g/dL (6.4-8.2); Triglyceride 316 mg/dL (<150)
[2023-11-21 18:01] LABS: T3, Total 141 ng/dL (97-169)
== END 2023-11-20 16:14 | disposition home or self-care (01) ==
LOC: LBN 16:13
PROVIDERS: PCP Nurse Practitioner Family; Visit Provider Nurse Practitioner Family
DX: E78.5 Hyperlipidemia, unspecified; E05.00 Thyrotoxicosis with diffuse goiter without thyrotoxic crisis or storm
CPT/HCPCS: 80053; 80061; 84439; 84443; 84480

== ENCOUNTER 2023-11-21 11:16 | Outpatient (CLI) | payer MEDICARE, SELFPAY ==
--- NOTE | 2023-11-21 15:11 | DI.RAD_ITS ---
Exam(s) XR KNEE RT 3V AP,LAT,MINDA EXAM: XR KNEE RT 3V AP,LAT,MINDA CLINICAL HISTORY: M25.561 Pain Rt knee, chronic pain. TECHNIQUE: 2D digital imaging was performed of the right knee. Three views obtained. AP, lateral an d PA tunnel views were obtained. COMPARISON: CR XR KNEE RT 4V AP,LAT,MINDA,PAT from 02/28/2021 FINDINGS: BONES: No acute fracture is present. No bony destructive lesion is seen. JOINTS: There is marked narrowing in the medial femoral tibial joint. There osteophytes in all 3 matty nt compartments. No joint effusion is seen. SOFT TISSUE: Normal. IMPRESSION: Marked degenerative changes seen in the right knee. DATA REPOSITORY: RADIATION DOSE DELIVERED:
--- NOTE | 2023-11-21 15:12 | DI.RAD_ITS ---
Exam(s) XR KNEE LT 2V AP,LAT EXAM: XR KNEE LT 2V AP,LAT CLINICAL HISTORY: T84.84XA pain internal orthopedic prosthetic devices, Z96.652 left artifici. TECHNIQUE: 2D digital imaging was performed. Two images were obtained. AP and lateral views were ob tained. 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 No fracture or dislocation. JOINTS: The orthopedic hardware is in good position. There is increased lucency seen at the bone pro sthetic interface in the medial tibia. There is a joint effusion. SOFT TISSUE: Normal. IMPRESSION: Increased lucency at the bone prosthetic interface in the medial proximal tibia. Loosening or infect ion should be considered. 3 phase bone scan may be obtained for further evaluation. DATA REPOSITORY: RADIATION DOSE DELIVERED:
== END 2023-11-21 11:36 ==
LOC: DI 11:17
PROVIDERS: PCP Nurse Practitioner Family; Visit Provider Nurse Practitioner Family
DX: M25.561 Pain in right knee; T84.84XA Pain due to internal orthopedic prosthetic devices, implants and grafts, initial encounter; Z96.652 Presence of left artificial knee joint
CPT/HCPCS: 73562; 73560

== ENCOUNTER → 2023-12-24 13:56 | Outpatient (BNVA) | payer MEDICARE, SELFPAY | PROVIDERS: PCP Nurse Practitioner Family; Referring Provider Nurse Practitioner Family | DX: M17.11 Unilateral primary osteoarthritis, right knee (principal); M70.52 Other bursitis of knee, left knee | CPT/HCPCS: 20610; J1010 ==

== ENCOUNTER 2024-11-21 13:19 | Outpatient (CLI) | payer MEDICARE, SELFPAY ==
[2024-11-21 16:09] LABS: TSH (W/Ref FT4) 2.81 uIU/mL (0.36-3.74)
== END 2024-11-21 13:20 | disposition home or self-care (01) ==
LOC: LOS 13:19
PROVIDERS: PCP Nurse Practitioner Family; Visit Provider Nurse Practitioner Family
DX: E05.90 Thyrotoxicosis, unspecified without thyrotoxic crisis or storm (principal)
CPT/HCPCS: 36415; 84443